=== PATIENT | female | born 1965 | race American Indian/Alaskan Native ===

== ENCOUNTER 2018-01-31 09:05 | Day surgery (SDC) | payer OTHER ==
--- NOTE | 2018-01-31 09:59 | Anesthesia Consultation ---
Anesthesia Consult and Med Hx Date of service: 01/31/18 - Airway Anesthetic Teeth Evaluation: Good ROM Head & Neck: Adequate Mental/Hyoid Distance: Adequate Mallampati Class: Class III Intubation Access Assessment: Possibly Difficult - Pulmonary Exam CTA: Yes - Cardiac Exam Cardiac Exam: RRR - Pre-Operative Health Status ASA Pre-Surgery Classification: ASA2 Proposed Anesthetic Plan: MAC - Pulmonary Hx Asthma: No COPD: Yes (Hx Bronchitis ) Hx Pneumonia: No - Central Nervous System Hx Psychiatric Problems: No - Endocrine Hx End Stage Renal Disease: No Hx Thyroid Disease: Yes (Thyroid nodule removed 1990s) - Hematic Hx Anemia: Yes - Other Systems Hx Alcohol Use: No Hx Substance Use: No Hx Cancer: Yes Hx Obesity: Yes
--- NOTE | 2018-01-31 09:59 | Anesthesia Day of Surgery ---
Anesthesia Day of Surgery - Day of Surgery Patient Examined: Yes Patient H&P Reviewed: Yes Patient is NPO: Yes
[2018-01-31] MEDS ORDERED: NACL 0.9% 1000 ML 1,000 ML IV SCH ×2 (10:00)
[2018-01-31] MEDS ORDERED: PEPCID IV NR (10:00)
[2018-01-31] MEDS ORDERED: ANCEF/STERILE WATER 2 GM/20 ML IV NR (10:00)
[2018-01-31] MEDS ORDERED: VERSED IV NR (10:00)
[2018-01-31 10:01] LABS: HCG Qualitative,Urine Negative (Negative)
[2018-01-31] MEDS ORDERED: HEPARIN 10,000 UNITS/10 ML ONE (10:38)
[2018-01-31] MEDS ORDERED: MARCAINE 0.5% 30 ML INFILTRATI ONE (10:38)
[2018-01-31] MEDS ORDERED: XYLOCAINE 1% 20 mL ONE (10:39)
[2018-01-31] MEDS ORDERED: GELFOAM TP ONE (10:40)
[2018-01-31] MEDS ORDERED: NACL 0.9% 250ML 250 ML ONE (10:40)
[2018-01-31] MEDS ORDERED: NACL ONE (10:50)
[2018-01-31] MEDS ORDERED: DIPRIVAN 10 MG/ML IV ONE ×3 (10:51→12:26)
[2018-01-31] MEDS ORDERED: XYLOCAINE MPF 2% ONE (10:53)
[2018-01-31] MEDS ORDERED: SUBLIMAZE ONE (11:14)
[2018-01-31] MEDS ORDERED: NEO SYNEPHRINE/NS Syringe(OR USE) IV ONE (11:29)
[2018-01-31] MEDS ORDERED: NACL 0.9% IR ONE (12:04)
[2018-01-31] MEDS ORDERED: HEPARIN IV ONE (12:04)
[2018-01-31] MEDS ORDERED: MARCAINE 0.5% INFILTRATI ONE (12:05)
[2018-01-31] MEDS ORDERED: XYLOCAINE 1% 20 mL INFILTRATI ONE (12:05)
[2018-01-31] MEDS ORDERED: NACL 0.9% 250ML IV ONE (12:05)
[2018-01-31] MEDS ORDERED: ZOFRAN ONE (12:31)
[2018-01-31] MEDS ORDERED: DECADRON ONE (12:31)
--- NOTE | 2018-01-31 13:12 | Short Stay Summary ---
Short Stay Documentation Date of service: 01/31/18 Narrative H&P: 52yo F with recent diagnosis of colon cancer presents for outpt port placement. - History H&P: obtained from office Past Medical History: cancer Past Surgical History: bowel surgery - Allergies and Medications Current Medications: Allergies No Known Allergies Allergy (Verified 01/29/18 10:48) Home Medications Medication Instructions Recorded Confirmed Last Taken Type No Known Home Medications [No 01/29/18 01/29/18 Unknown History Reported Home Medications] Active Medications Cefazolin Sodium (Ancef/Sterile Water 2 Gm/20 Ml) 2 gm IV PREOP NR Stop: 01/31/18 23:59 Famotidine (Pepcid) 20 mg IV PREOP NR Stop: 01/31/18 23:59 Last Admin: 01/31/18 10:20 Dose: 20 mg Sodium Chloride (Nacl 0.9% 1000 Ml) 1,000 mls @ 100 mls/hr IV DIRECT YANY Last Admin: 01/31/18 10:18 Dose: 100 mls/hr Sodium Chloride (Nacl 0.9% 1000 Ml) 1,000 mls @ 100 mls/hr IV DIRECT YANY Midazolam HCl (Versed) 2 mg IV PREOP NR Stop: 01/31/18 23:59 Last Admin: 01/31/18 10:19 Dose: 2 mg - Physical exam General appearance: no acute distress Lungs: Clear to auscultation, Normal air movement Heart: Regular rate Gastrointestinal: normal - Brief post op/procedure progress note Date of procedure: 01/31/18 Pre-op diagnosis: colon cancer Post-op diagnosis: same Procedure: Port placement with ultrasound guidance Anesthesia: MAC Findings: abnormal vascular anatomy on left side. Surgeon: MANINDER HERNANDEZ Estimated blood loss: minimal Pathology: none Condition: stable - Hospital course Hospital course: discharged home from PACU - Disposition Condition at discharge: Stable Disposition: DC-01 TO HOME OR SELFCARE - Discharge Diagnoses (1) Colon cancer Status: Suspected Qualifiers: Colon location: transverse Qualified Code(s): C18.4 - Malignant neoplasm of transverse colon Short Stay Discharge Plan Activity: advance as tolerated Weight Bearing Status: Weight Bear as Tolerated Diet: regular Wound: keep clean and dry Special Instructions: no heavy lifting (for 72 hours) Follow up with: KATERINE NOLASCO MD [Primary Care Provider] - 7 Days MANINDER HERNANDEZ MD [Staff Physician] - 7 Days (as needed) Prescriptions: HYDROcodone/APAP 5-325 [[place] 5/325] 1 each PO Q6HR PRN #10 tablet PRN Reason: Pain
--- NOTE | 2018-01-31 13:56 | Fluoroscopy Report ---
AP CHEST: HISTORY: Transverse colon cancer A right Wzivge-i-Wabh terminates near the cavoatrial junction. AP view of the chest demonstrates a normal mediastinal and cardiac contour with clear lungs and normal bony and soft tissue structures. IMPRESSION: Unremarkable AP chest.
[2018-01-31 15:13] VITALS: BP 115/77
--- NOTE | 2018-01-31 17:33 | Operative Report ---
PREOPERATIVE DIAGNOSIS: Transverse colon cancer. POSTOPERATIVE DIAGNOSIS: Transverse colon cancer. PROCEDURE: Port-A-Cath placement with ultrasound guidance in the right internal jugular vein. ATTENDING SURGEON: Dr. De Leon. ANESTHESIA: Local MAC. ESTIMATED BLOOD LOSS: Minimal. FLUIDS: 1 liter. FINDINGS: The patient had an unusual vascular anatomy and that confirmed access into the left internal jugular vein and then passage of the wire showed the wire going down left of the vertebral column, which would suggest aortic placement; however, on 2 separate occasions, we confirmed that the wire was going into the jugular vein based on ultrasound appearance. It had all the criteria consistent with that. The patient's right-sided anatomy was normal. Chest x-ray at the end showed good placement of the catheter. Distal tip was at the cavoatrial junction. There was no evidence of any pneumothorax. SPECIMENS: None. IMPLANTS: 8-Kazakh Port-A-Cath. COMPLICATIONS: Stable, transferred to Recovery Room. INDICATIONS: This is a 52-year-old female who was recently found to have a transverse colon cancer for which she went an extended right hemicolectomy. Oncology has assessed that she is in need of chemotherapy. Therefore, request was made for Port-A-Cath placement. Procedure, risks, and benefits were explained to the patient. Risks include but not limited to infection, bleeding, pain, injury to surrounding structures, possible pneumothorax, possible catheter malfunction, possible need for further surgery in the future. The patient understood and consented. Benefits, risks, procedures, alternatives were all explained. All questions were answered. DESCRIPTION OF PROCEDURE: The patient was brought to the operating room and placed on the table in supine position. After adequate general anesthesia was established, the patient was prepped and draped in usual sterile fashion. Two grams of Ancef had been administered prior to start of the case. SCDs were in place. Timeout was performed. I began by doing ultrasound assessment of her subclavian area. I had difficulty identifying the subclavian vein and artery. Therefore, I decided not to try and access that area as I could not see it clearly and I went to the left internal jugular vein. The vascular anatomy on the left side of the neck was completely normal. The vein was significantly larger than the artery. The artery could be seen pulsating. The vein was easily compressed and I followed the vein all the way down to the base of the neck. There was no evidence of any clots or any obstruction. 1% lidocaine was used to anesthetize the planned injection site and then under direct visual guidance, I placed an introducer needle on the left side of the neck. I was able to watch the needle go the entire path under ultrasound guidance and enter the left internal jugular vein. The blood was not pulsatile. The blood was not bright red. It seemed consistent with venous flow which is what we are seeing on the screen. Passage of guidewire showed the guidewire to go down the left side of the chest in what would be the aortic region. This was seen on fluoroscopy, and therefore, I tried initially, trying to redirect the wire, but it kept going down the same way and so even though I had seen the left internal jugular vein on ultrasound, I decided to pull the wire out and reassess and then try again. My partner, Dr. Summers, was in the room and with the network control technician, we all looked at the ultrasound and we were all in agreement what was the internal jugular vein on the left side, and therefore, I accessed it again under direct vision. This time instead of coming along the length of the ultrasound, I had it perpendicular and so the needle would be lined up in the direction of the internal jugular vein as opposed to perpendicular. Again, I could see the tip clearly go into the internal jugular vein. The blood coming out was the same. It was nonpulsatile. It was not bright red. Guidewire was passed and it went into the exact same location. Even though we can clearly see on ultrasound what structure we were in, where the wire was, where the tip of the needle was, I felt that it was not safe to proceed as the anatomy just did not make sense. Therefore, I turned my attention to the right side, which was already prepped. Under ultrasound guidance, I was able to access the right internal jugular vein. We all confirmed that we are visualizing the vein. It compressed easily the entire length as we follow with ultrasound showed no evidence of any obstruction or clots and we could clearly see the artery pulsating just like we did on the left side. I accessed the vein and on first attempt, we passed the wire and went into the right ventricle. It was in the proper position. We therefore continued using 1% lidocaine and 0.5% Marcaine as anesthetic mix. I anesthetized the planned incision site for the pocket and I anesthetized the pocket itself. Incision was made that was approximately 3 cm in length. The pocket was bluntly dissected and the Port-A-Cath seemed to fit quite nicely. I then passed the catheter with a tunneler up towards the neck. Because of the sharp angulation at the base of the neck and the neck itself, I was unable to pass it in one motion. Therefore, I made an incision at the base of the neck to bring the trocar out and through that same incision, I then passed the trocar up to the neck and out the site where the wire was. Under fluoroscopy, we estimated the length of the catheter that we would need. Then I dilated the tract and placed the sheath. I had to do this separately as the skin was very thick and difficult to stretch out. Once this was done, we confirmed the location again with fluoroscopy and then passed the catheter. We adjusted the length so that was roughly at the atrial caval junction and then I turned our attention to the port itself. Port was inserted. Catheter was attached and secured with a silk stitch. We had already placed Prolene sutures in the port to anchor it and then we secured those to the underlying tissue. We were able to aspirate easily and flush it easily with the heparin flush and then we removed the sheath. We adjusted the length of the catheter and then we proceeded to close. I checked with fluoroscopy again. The catheter appeared to be in very good position. There was no evidence of any pneumothorax. Total catheter length was 33 cm. Using 4-0 Monocryl, I closed all the skin sites with subcuticular stitches. Skin was cleaned and dried. Dermabond was placed. The patient tolerated the procedure well. There were no complications. All counts were correct at the end of the case. A chest x-ray after the procedure showed no evidence of any pneumothorax and the catheter was in a good position without any sharp bends. In recovery, the patient was comfortable. No evidence of any expanding hematomas. No difficulty with breathing or with the voice. JOB# [id number] MIRIAM/KENDRICK
--- NOTE | 2018-01-31 17:37 | Post Anesthesia Evaluation ---
- Post Anesthesia Evaluation Patient Participated: Yes Airway Patent: Yes Stable Respiratory Function: Yes Nausea/Vomiting: No Temp > 96.8F: Yes Pain Manageable: Yes Adequeate Hydration: Yes Anesthesia Complications: No Block Receding Appropriately: Not Applicable
--- NOTE | 2018-02-03 11:06 | Event Note ---
Date: 02/03/18 I called the patient today to see how she was doing. She just finished her chemotherapy class. She reports that over the weekend she had lots of discomfort on the right side of the neck where the catheter was tunneled. She is feeling better today. There were no other issues or concerns. The icepack and pain medicines helped. She does not need anything else at this time. She will call if there are new issues or problems. She seemed to be in good spirits.
== END 2018-01-31 14:32 | disposition home or self-care (01) ==
LOC: OR 09:05
PROVIDERS: ATTEND Surgery
DX: C18.4 Malignant neoplasm of transverse colon (principal); J44.9 Chronic obstructive pulmonary disease, unspecified; E66.9 Obesity, unspecified; Z98.890 Other specified postprocedural states; Z68.34 Body mass index [BMI] 34.0-34.9, adult
CPT/HCPCS: 36561; 77001; 81025; C1769; C1788; J0690; J1100; J1644; J2250; J2370; J2405; J2704; J3010; J7030; J7050; A4649

== ENCOUNTER 2018-02-11 16:45 | Inpatient (IN) | payer OTHER ==
[2018-02-11] MEDS ORDERED: NACL 0.9% 1000 ML 1,000 ML IV ONE ×3 (16:52→21:10)
[2018-02-11] MEDS ORDERED: TYLENOL PO ONE (17:00)
[2018-02-11 17:25] LABS: Basophils % (Auto) 0.2 % (0.0-1.8); Eosinophils % (Auto) 0.1 % (0.0-4.3); Hematocrit 27.3 % (30.3-42.9); Hemoglobin 8.5 gm/dl (10.1-14.3); Lymphocytes # (Auto) 0.6 K/mm3 (1.2-5.4); Lymphocytes % (Auto) 5.7 % (13.4-35.0); Mean Corpuscular HGB Conc 31 % (30-34); Mean Corpuscular Volume 73 fl (79-97); Monocytes # (Auto) 0.6 K/mm3 (0.0-0.8); Monocytes % (Auto) 5.1 % (0.0-7.3); Platelet Count 261 K/mm3 (140-440); Red Blood Count 3.75 M/mm3 (3.65-5.03); Red Cell Distribution Width 18.8 % (13.2-15.2)
[2018-02-11 17:29] LABS: Mean Corpuscular Hemoglobin 23 pg (28-32)
[2018-02-11 17:42] LABS: BUN/Creatinine Ratio 12; Blood Urea Nitrogen 6 mg/dL (7-17); Calcium 8.3 mg/dL (8.4-10.2); Hemolysis Index 0
--- NOTE | 2018-02-11 19:18 | Cat Scan Report ---
FINAL REPORT PROCEDURE: CT NECK W CON TECHNIQUE: Computerized axial tomography of the soft tissue neck was performed following the IV injection of iodinated nonionic contrast. DLP 417.25 mGy-cm. HISTORY: Swelling of port insertion. Fever. COMPARISON: No prior studies are available for comparison. FINDINGS: Skull and scalp: Normal. Paranasal sinuses: Normal. Nasopharynx: Normal . Oral cavity: Normal . Epiglottis/vallecula: Normal . Larynx/pyriform sinuses: Normal . Thyroid gland: Normal . Lymph nodes: There are mildly enlarged lymph nodes throughout the neck, slightly more evident on the right. Salivary glands: Normal . Upper thorax: Normal . Vessels: Right IJ port, undulating course. Tip terminates at the right IJ/subclavian vein confluence. At the level of the hyoid bone there is loss of enhancement of the right internal jugular vein. There are also moderate surrounding paravertebral collaterals. Right subclavian vein is not clearly enhancing or seen. Left innominate and the SVC appear to be normally enhancing. Other: Slight thickening and indistinctness about the right sternocleidomastoid muscle, which has a portion of the catheter running through it. In the supraclavicular region of the sternocleidomastoid muscle cannot exclude subtle areas of low attenuation measuring up to 5 mm (image 62 series 2). Slightly asymmetric thickening and induration of the soft/subcutaneous tissues on the right neck compared to the left. Multilevel degenerative changes of the spine. Straightening and reversal of cervical lordosis. IMPRESSION: Right IJ catheter has a somewhat undulating course. Compared to the left internal jugular vein, at the level of the hyoid bone there is loss of enhancement of the right internal jugular vein. Right subclavian vein not clearly seen. There is good enhancement of the SVC. There are moderate paravertebral collaterals. Findings concerning for possible right internal jugular vein and possibly subclavian vein thrombus. Recommend venous Doppler ultrasound if there is continued clinical concern. Slight thickening and indistinctness about the right sternocleidomastoid muscle with portion of the catheter running through. Slightly asymmetric thickening and induration of the soft/subcutaneous tissues of the right neck when compared to the left although could be related to procedure if catheter has been placed recently, also consider subtle infectious/inflammatory process such as subtle cellulitis. There may be subtle areas of low attenuation in the right sternocleidomastoid muscle, likely be volume averaging but consider subtle developing collection or even small abscess. Recommend attention on followup examination if there is continued clinical concern. Tip of the catheter at the right subclavian/IJ confluence, with undulating course of catheter recommend correlating clinically if catheter has pulled back. Adenopathy likely reactive. Cannot exclude metastatic involvement if there is history of underlying malignancy. Findings were discussed by telephone with Dr. Ceballos at 6 p.m. central standard time on 02/11/2018.
--- NOTE | 2018-02-11 19:20 | Emergency Department Report ---
ED Fever HPI - General Chief Complaint: Skin/Abscess/Foreign Body Stated Complaint: ABSCESS/FEVER/WEAKNESS Time Seen by Provider: 02/11/18 18:19 Source: patient Exam Limitations: no limitations - History of Present Illness Initial Comments: 52-year-old female with a past medical history of recently diagnosed colon cancer recently surgically resected since the hospital with complaints of fever and right neck swelling. Patient had a port placed in the right chest wall on January 31 in preparation for chemotherapy. On the patient began feeling feverish and fatigued with poor appetite. Patient initially had swelling to a whole neck after surgery and a reduced with persistent swelling to the right side of the neck patient complains of occasional cough. No complaints of nausea , abdominal pain, vomiting, dysuria, or diarrhea. Dr. De Leon surgeon in the ER to assess patient and advises workup to rule out abscess ED Review of Systems ROS: Stated complaint: ABSCESS/FEVER/WEAKNESS Other details as noted in HPI Comment: All other systems reviewed and negative ED Past Medical Hx - Past Medical History Hx Congestive Heart Failure: No Hx of Cancer: Yes (colon cancer) Hx Asthma: No Hx COPD: Yes (Hx Bronchitis ) Hx HIV: No Additional medical history: Fibroids, Thyroid nodule - Surgical History Additional Surgical History: Thyroid nodule removed. Colon mass resection - Social History Smoking Status: Never Smoker Substance Use Type: None - Medications Home Medications: Home Medications Medication Instructions Recorded Confirmed Last Taken Type HYDROcodone/APAP 5-325 [[place] 1 each PO Q6HR PRN #10 tablet 01/31/18 Unknown Rx 5/325] ED Physical Exam - General Limitations: No Limitations - Other Other exam information: General: No limitations, patient is alert in no acute distress Head exam: Atraumatic, normocephalic Eyes exam: Normal appearance, pupils equal reactive to light, extraocular movements intact ENT: Moist mucous membrane Neck exam: Normal inspection, full range of motion, swelling to right lateral knee with possible palpation of catheter. Respiratory exam: Clear to auscultation bilateral, no wheezes, rales, crackles. Right chest wall port Cardiovascular: Normal rate and rhythm Abdomen: Soft, nondistended, and nontender, with normal bowel sounds, no rebound, or guarding Extremity: Full range of motion normal inspection no deformity Back: Normal Inspection, full range of motion, no tenderness Neurologic: Alert, oriented x3, cranial nerves intact, no motor or sensory deficit Psychiatric: normal affect, normal mood Skin: Warm, dry, intact ED Course Vital Signs 02/11/18 02/11/18 02/11/18 16:45 17:22 17:30 Temperature 102.9 F H Pulse Rate 136 H Respiratory 16 Rate Blood Pressure 134/82 Blood Pressure [Right] O2 Sat by Pulse 98 100 99 Oximetry 02/11/18 02/11/18 02/11/18 17:44 17:46 17:56 Temperature 102.9 F H Pulse Rate 129 H 131 H Respiratory 21 19 20 Rate Blood Pressure 112/75 Blood Pressure 112/75 [Right] O2 Sat by Pulse 100 100 Oximetry 02/11/18 02/11/18 02/11/18 18:00 18:22 18:30 Temperature Pulse Rate 125 H 117 H Respiratory 19 Rate Blood Pressure 112/75 Blood Pressure [Right] O2 Sat by Pulse 99 99 100 Oximetry 02/11/18 02/11/18 02/11/18 18:46 18:56 19:00 Temperature Pulse Rate 111 H 112 H Respiratory 14 18 12 Rate Blood Pressure Blood Pressure [Right] O2 Sat by Pulse 100 100 Oximetry 02/11/18 02/11/18 02/11/18 19:18 19:38 19:46 Temperature Pulse Rate 100 H Respiratory 17 19 16 Rate Blood Pressure 116/75 116/75 Blood Pressure [Right] O2 Sat by Pulse 98 99 99 Oximetry 02/11/18 02/11/18 02/11/18 20:00 20:16 20:30 Temperature Pulse Rate 94 H 96 H 95 H Respiratory 16 23 21 Rate Blood Pressure 120/67 116/75 116/75 Blood Pressure [Right] O2 Sat by Pulse 100 97 97 Oximetry - Reevaluation(s) Reevaluation #1: 02/11/18 22:17 Heart rate improves with Tylenol and IV fluids. Zosyn given empirically ED Medical Decision Making - Lab Data Result diagrams: 02/11/18 17:02 02/11/18 17:02 Lab Results 02/11/18 02/11/18 02/11/18 Range/Units 17:02 17:02 17:17 WBC 11.1 H (4.5-11.0) K/mm3 RBC 3.75 (3.65-5.03) M/mm3 Hgb 8.5 L (10.1-14.3) gm/dl Hct 27.3 L (30.3-42.9) % MCV 73 L (79-97) fl MCH 23 L (28-32) pg MCHC 31 (30-34) % RDW 18.8 H (13.2-15.2) % Plt Count 261 (140-440) K/mm3 Lymph % (Auto) 5.7 L (13.4-35.0) % [place] % (Auto) 5.1 (0.0-7.3) % Eos % (Auto) 0.1 (0.0-4.3) % Baso % (Auto) 0.2 (0.0-1.8) % Lymph # 0.6 L (1.2-5.4) K/mm3 [place] # 0.6 (0.0-0.8) K/mm3 Eos # 0.0 (0.0-0.4) K/mm3 Baso # 0.0 (0.0-0.1) K/mm3 Seg Neutrophils % 88.9 H (40.0-70.0) % Seg Neutrophils # 9.9 H (1.8-7.7) K/mm3 Sodium 134 L (137-145) mmol/L Potassium 3.4 L (3.6-5.0) mmol/L Chloride 96.0 L (98-107) mmol/L Carbon Dioxide 22 (22-30) mmol/L Anion Gap 19 mmol/L BUN 6 L (7-17) mg/dL Creatinine 0.5 L (0.7-1.2) mg/dL Estimated GFR > 60 ml/min BUN/Creatinine Ratio 12 % Glucose 106 H (65-100) mg/dL Lactic Acid 1.10 (0.7-2.0) mmol/L Calcium 8.3 L (8.4-10.2) mg/dL - Radiology Data Radiology results: report reviewed CXR pa and Lat FINDINGS: Right chest port catheter is present with tip in the region of the cephalad SVC. There is mild kinking/angulation in the region of the jugular insertion. No mediastinal shift. Cardiac silhouette is not enlarged. No pneumothorax, effusion, or focal pulmonary opacity. No acute skeletal finding. IMPRESSION: No focal pulmonary opacity. Mild caking/angulation in the region of the chest port catheter jugular insertion. Ct neck IV contrast: IMPRESSION: Right IJ catheter has a somewhat undulating course. Compared to the left internal jugular vein, at the level of the hyoid bone there is loss of enhancement of the right internal jugular vein. Right subclavian vein not clearly seen. There is good enhancement of the SVC. There are moderate paravertebral collaterals. Findings concerning for possible right internal jugular vein and possibly subclavian vein thrombus. Recommend venous Doppler ultrasound if there is continued clinical concern. Slight thickening and indistinctness about the right sternocleidomastoid muscle with portion of the catheter running through. Slightly asymmetric thickening and induration of the soft/subcutaneous tissues of the right neck when compared to the left although could be related to procedure if catheter has been placed recently, also consider subtle infectious/inflammatory process such as subtle cellulitis. There may be subtle areas of low attenuation in the right sternocleidomastoid muscle, likely be volume averaging but consider subtle developing collection or even small abscess. Recommend attention on followup examination if there is continued clinical concern. Tip of the catheter at the right subclavian/IJ confluence, with undulating course of catheter recommend correlating clinically if catheter has pulled back. Adenopathy likely reactive. Cannot exclude metastatic involvement if there is history of underlying malignancy. Findings were discussed by telephone with Dr. Ceballos at 6 p.m. central standard time on 02/11/2018. - Medical Decision Making Imaging shows that patient might have right-sided findings secondary to recent procedure versus early cellulitis. There is also question of a right IJ clot. Dr. De Leon recommends Doppler the right IJ with available. I ordered Zosyn to apparently treat for infection. Possibly some point for admission. Vitals improving with IV fluids and Tylenol. Po KCL given for mild hypokalemia - Differential Diagnosis conjunctivitis, abscess, misplaced catheter Critical Care Time: No Critical care attestation.: If time is entered above; I have spent that time in minutes in the direct care of this critically ill patient, excluding procedure time. ED Disposition Clinical Impression: Fever, Localized swelling, mass and lump, neck, Complication of catheter, Anemia, Colon cancer, Hypokalemia Disposition: OP ADMIT IP TO THIS HOSP Is pt being admited?: Yes Condition: Stable Time of Disposition: 22:05 (Dr Melo/hosp)
[2018-02-11] MEDS ORDERED: K-DUR PO ONE (20:10)
--- NOTE | 2018-02-11 21:59 | XRay Report ---
FINAL REPORT EXAM: XR CHEST ROUTINE 2V HISTORY: fever TECHNIQUE: PA and lateral chest radiographs PRIORS: 12/24/2017 FINDINGS: Right chest port catheter is present with tip in the region of the cephalad SVC. There is mild kinking/angulation in the region of the jugular insertion. No mediastinal shift. Cardiac silhouette is not enlarged. No pneumothorax, effusion, or focal pulmonary opacity. No acute skeletal finding. IMPRESSION: No focal pulmonary opacity. Mild caking/angulation in the region of the chest port catheter jugular insertion.
[2018-02-11] MEDS ORDERED: ZOSYN/NS 4.5GM/100ML 4.5 GM/100 ML VIAL IV ONE (22:00)
[2018-02-11] MEDS ORDERED: ZOFRAN IV PRN (22:41)
[2018-02-12] MEDS: TYLENOL PO PRN ×3 (02:10→15:02)
[2018-02-12] MEDS ORDERED: ZOSYN/NS 3.375GM/50ML 3.375 GM/50 ML BAG IV SCH (06:00)
--- NOTE | 2018-02-12 07:41 | History and Physical Report ---
CHIEF COMPLAINT: Swelling on the right side of the neck. HISTORY OF PRESENT ILLNESS: The patient is a 52-year-old female with recently diagnosed colonic cancer who had complained of fever and swelling on the right side of the neck. The patient had a port placed in the right chest wall recently on 01/31 in preparation for chemotherapy. A few days later, she started feeling feverish with fatigue and then developed swelling on the right side of the neck. She has history of occasional cough with no nausea, no vomiting, and no chest pain. The patient's surgeon is Dr. De Leon who put in the port, came to the Emergency Room and saw the patient and advised that the patient be worked of for possible abscess on the right side of neck and there is recommendation to do an ultrasound of the right side of the neck to rule out blood clot in the veins on the right side of the neck. There is no history of chest pain or shortness of breath. PAST MEDICAL HISTORY: Pertinent for colon cancer, COPD, fibroid and thyroid nodule. PAST SURGICAL HISTORY: Pertinent for colon resection, thyroid nodule removal and port placement on the right side of the chest. FAMILY HISTORY: Noncontributory. SOCIAL HISTORY: The patient does not smoke, does not drink alcohol and does not use illicit drugs. MEDICATIONS: The patient is on [place] 5/325 mg 1 by mouth every 6 hours as needed for pain. ALLERGIES: There are no known drug allergies. REVIEW OF SYSTEMS: CONSTITUTIONAL: There is fever, but no chills, no diaphoresis. HEENT: There is no headache or sore throat. CARDIOVASCULAR: There is no chest pain or orthopnea. RESPIRATORY: There is no shortness of breath or cough. GASTROINTESTINAL: There is no nausea, no vomiting. There is no abdominal pain, diarrhea or constipation. NEUROLOGICAL: There is no numbness, no dizziness, no altered mental status. MUSCULOSKELETAL: There is swelling on the right side of the neck, but no joint swelling. DERMATOLOGICAL: There is no skin rash, but there is swelling on the right side of neck, but there is no itching. GENITOURINARY: There is no dysuria, hematuria or flank pain. Rest of system review is normal. PHYSICAL EXAMINATION: GENERAL: At the time of exam, the patient was found to be alert, oriented x 3, not in acute distress. VITAL SIGNS: Shows temperature of 99.2 degree Fahrenheit, pulse of 103, respirations 19, blood pressure 143/80, O2 sat of 100% on room air. HEENT: Shows pupils to be equal, round, reactive to light and accommodating. Extraocular muscles intact. NECK: Supple with no JVD or carotid bruit. There is swelling on the right side of the neck, soft to touch. Nontender. There are no palpable lymph nodes. CARDIOVASCULAR: Showed normal first and second heart sounds, with no gallops or murmur. RESPIRATORY: Show good air entry on both sides of the lungs with no abnormal breath sounds. GASTROINTESTINAL: Shows abdomen to be full, soft, nontender with no organomegaly or rigidity. NEUROLOGIC: Shows no focal deficits. MUSCULOSKELETAL: Show no joint swelling or tenderness. DERMATOLOGICAL: Shows swelling on the right side of the neck, nontender to touch, with no redness seen in the area. GENITOURINARY: There is no costovertebral angle tenderness. PERTINENT LABORATORY AND IMAGING STUDIES: The patient has CBC done that shows elevated white count of 11,100 with a low hemoglobin of 8.5, low hematocrit of 27.3 and low MCV of 73. CBC differential shows elevated segmented neutrophil of 88.9%. Chemistry showing low sodium of 134, low potassium of 3.4, l3/28/2018ow chloride of 96. Lactic acid level was normal. IMAGING STUDIES: CT of the neck area shows right IJ catheter has somewhat undulating course according to the radiologist compared to the left internal jugular vein ____ loss of enhancement of the right internal jugular vein. The right subclavian vein was not clearly seen. The radiologist went further to say that there is moderate paravertebral collateral and that findings are concerning for possible right internal jugular vein, possible subclavian vein thrombus and they recommended venous Doppler ultrasound. Also, the radiologist says that there is slight thickening and indistinctiveness about the right sternocleidomastoid muscle with portions of the catheter running through. DIAGNOSES: 1. Right neck mass. 2. Fever. PLAN: The patient will be admitted to medical floor and will have an ultrasound of right internal jugular vein done as already ordered by the Emergency Room physician. The patient will be on IV Zosyn 3.375 g every 8 hours and will be on Tylenol 650 mg by mouth every 4 hours for fever and headache. The patient will be on IV Zofran 4 mg every 8 hours as needed for nausea and vomiting. The patient will continue surgical consult with Dr. De Leon, ordered by the Emergency Room physician. The patient's home medication will be reconciled and started accordingly. JOB# [id number] OCN/NTS
[2018-02-12 09:28] LABS: Bilirubin,Urine NEG (Negative); Blood,Urine SM (Negative); Color,Urine Yellow (Yellow); Mucus,Urine FEW /HPF; Urobilinogen,Urine < 2.0 mg/dL (<2.0)
[2018-02-12] MEDS ORDERED: VANCOMYCIN/NS 1 GM/250 ML 1 GM/250 ML BAG IV SCH (10:00)
[2018-02-12] MEDS ORDERED: VANCOMYCIN PHARMACY TO DOSE IV SCH (10:00)
--- NOTE | 2018-02-12 10:00 | Hem/Onc Progress Note ---
Assessment and Plan Discussed with Dr. sanchez. Continue to monitor. Awaiting ultrasound of the right neck area. Blood culture positive for gram-positive cocci in clusters. Awaiting ID and sensitivity. Patient on Zosyn and vancomycin currently. We will follow Subjective Date of service: 02/12/18 Interval history: Patient known to me. Recent diagnosis of stage II colon cancer. Patient is to start adjuvant chemotherapy next week. Recent PET scan shows no evidence of metastatic disease. Patient admitted with high fevers. Denies any bowel complaints. Objective - Constitutional Vitals: Last Vital Signs Temp 102.9 F H 02/12/18 07:53 Pulse 124 H 02/12/18 07:53 Resp 18 02/12/18 07:53 BP 164/92 02/12/18 07:53 Pulse Ox 95 02/12/18 07:53 General appearance: mild distress Performance status: 2- selfcare, ambulatory - Neck Neck: supple, other (right neck swelling) - Respiratory Respiratory effort: Positive: normal - Cardiovascular Rhythm: regular - Gastrointestinal General gastrointestinal: Present: soft - Labs Lab Results: Laboratory Results - last 24 hr 02/11/18 02/11/18 02/11/18 17:02 17:02 17:17 WBC 11.1 H RBC 3.75 Hgb 8.5 L Hct 27.3 L MCV 73 L MCH 23 L MCHC 31 RDW 18.8 H Plt Count 261 Lymph % (Auto) 5.7 L [place] % (Auto) 5.1 Eos % (Auto) 0.1 Baso % (Auto) 0.2 Lymph # 0.6 L [place] # 0.6 Eos # 0.0 Baso # 0.0 Seg Neutrophils % 88.9 H Seg Neutrophils # 9.9 H Sodium 134 L Potassium 3.4 L Chloride 96.0 L Carbon Dioxide 22 Anion Gap 19 BUN 6 L Creatinine 0.5 L Estimated GFR > 60 BUN/Creatinine Ratio 12 Glucose 106 H Lactic Acid 1.10 Calcium 8.3 L Urine Color Urine Turbidity Urine pH Ur Specific [place] Urine Protein Urine Glucose (UA) Urine Ketones Urine Blood Urine Nitrite Urine Bilirubin Urine Urobilinogen Ur Leukocyte Esterase Urine WBC (Auto) Urine RBC (Auto) U Epithel Cells (Auto) Urine Mucus 02/12/18 09:01 WBC RBC Hgb Hct MCV MCH MCHC RDW Plt Count Lymph % (Auto) [place] % (Auto) Eos % (Auto) Baso % (Auto) Lymph # [place] # Eos # Baso # Seg Neutrophils % Seg Neutrophils # Sodium Potassium Chloride Carbon Dioxide Anion Gap BUN Creatinine Estimated GFR BUN/Creatinine Ratio Glucose Lactic Acid Calcium Urine Color Yellow Urine Turbidity Clear Urine pH 6.0 Ur Specific [place] 1.019 Urine Protein 30 mg/dl Urine Glucose (UA) Neg Urine Ketones Tr Urine Blood Sm Urine Nitrite Neg Urine Bilirubin Neg Urine Urobilinogen < 2.0 Ur Leukocyte Esterase Neg Urine WBC (Auto) 1.0 Urine RBC (Auto) 1.0 U Epithel Cells (Auto) 4.0 Urine Mucus Few
--- NOTE | 2018-02-12 10:54 | Consultation ---
History of Present Illness Consult date: 02/12/18 Reason for consult: other (fever) Requesting physician: MURALI FRANKLIN Chief complaint: Fever - History of present illness History of present illness: 52-year-old female who is well-known to our service after having an extended right yumiko colectomy for newly diagnosed colon cancer in December and a recent port placement on January 31 presented to the office yesterday due to concerns of right next swelling. She was found to have a fever and tachycardia. She was sent to the ER for further evaluation. CT of the neck was done which showed no evidence of any abscess. Catheter looked to be retracted slightly. Patient was admitted to the medicine service for further workup of her fever. Patient reports continued fevers. Feels as though she may be developing left ear pain as well. Past History Past Medical History: cancer (colon) Past Surgical History: thyroidectomy, bowel surgery (extended right hemicolectomy; port placement) Social history: denies: smoking, alcohol abuse, prescription drug abuse Family history: no significant family history Medications and Allergies Allergies Allergy/AdvReac Type Severity Reaction Status Date / Time No Known Allergies Allergy Verified 01/29/18 10:48 Home Medications Medication Instructions Recorded Confirmed Last Taken Type HYDROcodone/APAP 5-325 [[place] 1 each PO Q6HR PRN #10 tablet 01/31/18 Unknown Rx 5/325] Active Meds: Active Medications Acetaminophen (Tylenol) 650 mg PO Q4H PRN PRN Reason: For Pain/Fever/Headache Last Admin: 02/12/18 08:29 Dose: 650 mg Acetaminophen/Hydrocodone Bitart ([place] 5/325) 1 each PO Q6H PRN PRN Reason: Pain Vancomycin HCl 1,750 mg/ (Sodium Chloride) 517.5 mls @ 333.333 mls/hr IV ONCE ONE Stop: 02/12/18 12:33 Piperacillin Sod/Tazobactam Sod (Zosyn/Ns 4.5gm/100ml) 4.5 gm in 100 mls @ 200 mls/hr IV Q8HR YANY Vancomycin HCl 1,250 mg/ (Sodium Chloride) 262.5 mls @ 166.667 mls/hr IV Q12H YANY Ondansetron HCl (Zofran) 4 mg IV Q8H PRN PRN Reason: Nausea And Vomiting Vancomycin HCl (Vancomycin Pharmacy To Dose) 1 each IV PKCONSULT YANY Review of Systems - Constitutional fever, chills (mild), sweats, weakness, lethargy - EENT Ears, nose, mouth and throat: ear pain (left ), nasal congestion, nasal discharge, sinus pressure - Breasts deferred - Cardiovascular chest pain (occasional on the left side) - Respiratory no cough, no cough with sputum, no shortness of breath - Gastrointestinal no abdominal pain, no nausea, no vomiting - Genitourinary Genitourinary: no dysuria - Muskuloskeletal neck pain (in area of catheter placement) - Integumentary no rash - Neurological tingling (in right arm and leg) - Hematologic/Lymphatic no easy bruising, no easy bleeding Exam Vital Signs Temp Pulse Resp BP Pulse Ox 102.9 F H 136 H 16 134/82 98 02/11/18 16:45 02/11/18 16:45 02/11/18 16:45 02/11/18 16:45 02/11/18 16:45 - General physical appearance Positive: no distress, other (does appear ill) - Eyes Positive: normal occular movement - Neck Positive: trachea midline, other (mild neck prominence on right (catheter). incisions are C/D/I) - Respiratory Positive: normal expansion, normal respiratory effort - Cardiovascular Rhythm: regular - Abdomen Abdomen: Present: soft. Absent: tender, distended - Integumentary no rash, other (all incisions are clear,dry,intact) - Neurologic Neurologic: alert and oriented to time, place and person, motor strength and sensation are grossly intact - Psychiatric Psychiatric: appropriate mood/affect, intact judgment & insight, memory intact, cooperative Results - Labs 02/11/18 17:02 02/11/18 17:02 Abnormal lab results 02/11/18 02/11/18 Range/Units 17:02 17:02 WBC 11.1 H (4.5-11.0) K/mm3 Hgb 8.5 L (10.1-14.3) gm/dl Hct 27.3 L (30.3-42.9) % MCV 73 L (79-97) fl MCH 23 L (28-32) pg RDW 18.8 H (13.2-15.2) % Lymph % (Auto) 5.7 L (13.4-35.0) % Lymph # 0.6 L (1.2-5.4) K/mm3 Seg Neutrophils % 88.9 H (40.0-70.0) % Seg Neutrophils # 9.9 H (1.8-7.7) K/mm3 Sodium 134 L (137-145) mmol/L Potassium 3.4 L (3.6-5.0) mmol/L Chloride 96.0 L (98-107) mmol/L BUN 6 L (7-17) mg/dL Creatinine 0.5 L (0.7-1.2) mg/dL Glucose 106 H (65-100) mg/dL Calcium 8.3 L (8.4-10.2) mg/dL Diabetes panel 02/11/18 Range/Units 17:02 Sodium 134 L (137-145) mmol/L Potassium 3.4 L (3.6-5.0) mmol/L Chloride 96.0 L (98-107) mmol/L Carbon Dioxide 22 (22-30) mmol/L BUN 6 L (7-17) mg/dL Creatinine 0.5 L (0.7-1.2) mg/dL Glucose 106 H (65-100) mg/dL Calcium 8.3 L (8.4-10.2) mg/dL Calcium panel 02/11/18 Range/Units 17:02 Calcium 8.3 L (8.4-10.2) mg/dL Pituitary panel 02/11/18 Range/Units 17:02 Sodium 134 L (137-145) mmol/L Potassium 3.4 L (3.6-5.0) mmol/L Chloride 96.0 L (98-107) mmol/L Carbon Dioxide 22 (22-30) mmol/L BUN 6 L (7-17) mg/dL Creatinine 0.5 L (0.7-1.2) mg/dL Glucose 106 H (65-100) mg/dL Calcium 8.3 L (8.4-10.2) mg/dL Adrenal panel 02/11/18 Range/Units 17:02 Sodium 134 L (137-145) mmol/L Potassium 3.4 L (3.6-5.0) mmol/L Chloride 96.0 L (98-107) mmol/L Carbon Dioxide 22 (22-30) mmol/L BUN 6 L (7-17) mg/dL Creatinine 0.5 L (0.7-1.2) mg/dL Glucose 106 H (65-100) mg/dL Calcium 8.3 L (8.4-10.2) mg/dL - Imaging Chest x-ray: report reviewed, image reviewed Additional studies: Reviewed Ct neck with radiologist Assessment and Plan - Patient Problems (1) Fever Current Visit: Yes Status: Acute Qualifiers: Fever type: unspecified Qualified Code(s): R50.9 - Fever, unspecified Plan to address problem: Unclear what the source is for the fever. If a DVT is found in the right internal jugular vein (ultrasound pending), that could be a possible source for the fever. The port itself has not been accessed yet. Highly unlikely this is a line infection. The surgical wounds are all without signs of infection. The CT scan of the neck did not show any sign to suggest abscess or cause of fever. Will follow along. Time=45min
[2018-02-12] MEDS ORDERED: VANCOMYCIN 1,750 MG in NACL 0.9% 500 ML 500 ML IV ONE (11:00)
[2018-02-12] MEDS ORDERED: HEPARIN 25,000 UNIT in D5W 497.5 ML IV SCH (12:00)
--- NOTE | 2018-02-12 13:59 | Consultation ---
History of Present Illness - Reason for Consult Consult date: 02/12/18 bacteremia Requesting physician: MURALI FRANKLIN - History of Present Illness 52 years old female with history of stage II colon cancer diagnosed last month s /p colectomy oin December, also underwent port-A-cath placement on 01/31; admitted on 02/11 due to 5 days history of severe right neck port site pain, swelling and fever. Patient is to start adjuvant chemotherapy next week. Recent PET scan shows no evidence of metastatic disease. Denies respiratory symptoms, urinary symptoms, N/V/D. She reports she is so purulence at the surgical site. In the ED, initial temperature was 102.9, heart rate 136, respirations 16, O2 sat 98, blood pressure 134/82. Initial white count 11.1. Hemoglobin 8.5. Platelets 261. Creatinine 0.5. Potassium 3.4. Sodium 134. Urinalysis is negative. CT of the neck showed a right IJ with an undulating course catheter. There is a possibility of a right IJ and Subclavian vein thrombosis. Ultrasound of the neck show acute DVT in the right IJ. Microbiology: Blood cultures: 02/11 GPC in clusters 2 of 4 bottles Urine cultures: Current Antimicrobials: Zosyn 02/12 Vancomycin 02/12 Previous Antimicrobials: Past History Past Medical History: cancer (colon) Past Surgical History: thyroidectomy, bowel surgery (extended right hemicolectomy; port placement) Social history: denies: smoking, alcohol abuse, prescription drug abuse Family history: no significant family history Medications and Allergies Allergies Allergy/AdvReac Type Severity Reaction Status Date / Time No Known Allergies Allergy Verified 01/29/18 10:48 Home Medications Medication Instructions Recorded Confirmed Last Taken Type HYDROcodone/APAP 5-325 [[place] 1 each PO Q6HR PRN #10 tablet 01/31/18 Unknown Rx 5/325] Active Meds: Active Medications Acetaminophen (Tylenol) 650 mg PO Q4H PRN PRN Reason: For Pain/Fever/Headache Last Admin: 02/12/18 08:29 Dose: 650 mg Acetaminophen/Hydrocodone Bitart ([place] 5/325) 1 each PO Q6H PRN PRN Reason: Pain Heparin Sodium (Porcine) (Heparin 10,000 Units/10 Ml) 3,500 unit 40 unit/kg ( 3500 unit) IV ONCE ONE Stop: 02/12/18 13:55 Piperacillin Sod/Tazobactam Sod (Zosyn/Ns 4.5gm/100ml) 4.5 gm in 100 mls @ 200 mls/hr IV Q8HR YANY Vancomycin HCl 1,250 mg/ (Sodium Chloride) 262.5 mls @ 166.667 mls/hr IV Q12H YANY Heparin Sodium (Porcine) 25, (000 unit/ Dextrose) 500 mls @ 26.19 mls/hr IV TITR YANY; Protocol Heparin Sodium/Sodium Chloride (Heparin/ 0.45% Nacl-25,000 Unit/500 Ml) 25,000 unit in 500 mls @ 26.19 mls/hr IV TITR YANY; Protocol Ondansetron HCl (Zofran) 4 mg IV Q8H PRN PRN Reason: Nausea And Vomiting Vancomycin HCl (Vancomycin Pharmacy To Dose) 1 each IV PKCONSULT YANY Review of Systems All systems: negative (as per HPI address of 10 point review systems negative) Physical Examination - Physical Exam Narrative exam: General appearance: Alert in NAD, conversant Eyes: anicteric sclerae, moist conjunctivae; no lid-lag; PERRLA HENT: Atraumatic; oropharynx clear. Neck: +marked tendeness and swellin right neck and SC area Lungs: CTA, with normal respiratory effort and no intercostal retractions CV: tachy Abdomen: Soft, non-tender; +midline surg scar well healed Extremities: No peripheral edema or extremity lymphadenopathy Skin: Normal temperature, turgor and texture; no rash, ulcers or subcutaneous nodules Psych: Appropriate affect, alert and oriented to person, place and time. Neuro: alert and oriented x 3. Moving all extermities Lines: - Constitutional Vitals: Vital Signs Temp Pulse Resp BP Pulse Ox 102.9 F H 124 H 18 164/92 95 02/12/18 07:53 02/12/18 07:53 02/12/18 07:53 02/12/18 07:53 02/12/18 07:53 Temperature -Last 24 Hours Temperature 102.9 F Temperature 99.2 F Temperature 102.9 F Temperature 102.9 F Results - Labs CBC & Chem 7: 02/11/18 17:02 02/11/18 17:02 Labs: Abnormal lab results 02/11/18 02/11/18 Range/Units 17:02 17:02 WBC 11.1 H (4.5-11.0) K/mm3 Hgb 8.5 L (10.1-14.3) gm/dl Hct 27.3 L (30.3-42.9) % MCV 73 L (79-97) fl MCH 23 L (28-32) pg RDW 18.8 H (13.2-15.2) % Lymph % (Auto) 5.7 L (13.4-35.0) % Lymph # 0.6 L (1.2-5.4) K/mm3 Seg Neutrophils % 88.9 H (40.0-70.0) % Seg Neutrophils # 9.9 H (1.8-7.7) K/mm3 Sodium 134 L (137-145) mmol/L Potassium 3.4 L (3.6-5.0) mmol/L Chloride 96.0 L (98-107) mmol/L BUN 6 L (7-17) mg/dL Creatinine 0.5 L (0.7-1.2) mg/dL Glucose 106 H (65-100) mg/dL Calcium 8.3 L (8.4-10.2) mg/dL Assessment and Plan Assessment: 1) Sepsis: Present on admission, manifested by fever, tachycardia, leukocytosis. Etiology most likely bacteremia 2) GPC in clusters bacteremia: likely from infected port a cath with right IJ thrombus -Port placed on 01/31/18 -Blood cx 02/11 already positive 2 of 4 bottles 3) Presumed right IJ septic thrombophlebitis: -Doppler showed right IJ DVT -CT neck Right IJ cath undulating course, presumed right IJ and SC vein thrombus and right sternomastoid muscle with a small abscess 4) Colon cancer stage II s/p colectomy 5) Anemia Plan: -remove port-A-cath - discussed with Dr De Leon -armand arellano - no need for anti-pseudomonal coverage -continue vancomcyin -add cefazolin -f/u blood cx -repeat blood cx in 48h -obtain TTE / CRP -DVT treatment per medicine -if persistent fever or bacteremia will consult vascular Thank you for your consultation, will follow up with you. Michelle Fitch MD Infectious Diseases Specialist [facility] ([facility] M [phone] O [phone]
[2018-02-12] MEDS ORDERED: ZOSYN/NS 4.5GM/100ML 4.5 GM/100 ML VIAL IV SCH (14:00)
[2018-02-12] MEDS ORDERED: XYLOCAINE 1% MPF 5 mL INFILTRATI ONE (14:24)
[2018-02-12 14:29] LABS: Hemoglobin 8.1 gm/dl (10.1-14.3)
[2018-02-12] MEDS ORDERED: HEPARIN 10,000 UNITS/10 ML IV ONE (14:30)
[2018-02-12 14:38] LABS: INR 1.08 (0.87-1.13)
[2018-02-12 14:39] LABS: Partial Thromboplastin Time 36.4 Sec. (24.2-36.6)
[2018-02-12] MEDS ORDERED: ceFAZolin 2 GM in NACL 0.9% 100 ML IV SCH (15:00)
--- NOTE | 2018-02-12 16:13 | Procedure Note ---
Date of procedure: 02/12/18 Pre-op diagnosis: Sepsis Post-op diagnosis: same Procedure: Port removal. Patient was assessed to have sepsis most likely line related by infectious disease. I discussed the case with Dr. Neely. She felt strongly that the port needed to be removed. I discussed this plan with the patient. She was an agreement. Procedure, risks, benefits were discussed. Consent was obtained. Sterile prep and drape was performed. 1% lidocaine was used to anesthetize the port incision site. The incision site was open. There was clear fluid around the port. There was early fibrinous tissue forming around the port. This was easily dissected. Stay sutures were cut. Minimal dissection was needed in order to remove the port and catheter. As the catheter was being pulled out pressure was held over the insertion point at the right internal jugular vein. She was in Trendelenburg position during this time. Once the catheter was completely out, the patient was placed in the sitting position while pressure continued to be held. After a few minutes pressure was released. One was packed with gauze. There was no bleeding. Dressings were placed. Patient tolerated the procedure well. Catheter tip was still fairly cut and placed in specimen cup. It was sent to lab for evaluation. Anesthesia: local (4cc 1% lidocaine) Surgeon: MANINDER HERNANDEZ Estimated blood loss: minimal Pathology: list (catheter tip sent) Specimen disposition: to lab Condition: stable Disposition: floor
[2018-02-12] MEDS: HEPARIN/ 0.45% NACL-25,000 UNIT/500 ML 25,000 UNIT/500 ML BAG IV SCH (16:54)
--- NOTE | 2018-02-12 18:32 | Progress Note ---
Assessment and Plan Assessment and plan: Assessment Acute DVT Right IJ /Subclavian Acute Sepsis Syndrome with Bacteremia Anemia of chronic disease. Hypokalemia h/o Colon cancer Mild acute Hypokalemia Right neck swelling and pain Obese Full code status Plan Heparin drip per protocol bleeding precautions at all times am labs. replete K ID consult to Dr Neely close monitoring if condition deteriorates, transfer to ICU continue IV abx d/w pt and RN f.u final culture results Further pt mgt per hospital course Port removed f/u 2D Echo contact precautions inputs and reccs of the specialists appreciated. More than 40 mins spent of which more than 50% of the time was spent in pt counseling and coordination History Interval history: Ms Schaefer is a pleasant 52 y/o female with new diagnosis of Colon cancer, s/p surgery and Port-a-cath placement. Has had temps of 102.9 etc, ID Consult obtained, d/w Dr Neely. Pt seen and exam earlier today, feels better, worried about the fevers. Venous doppler neck positive for acute DVT D/W rn multiple times today. Denies CP/SOB, c/o left ear pain, No family at bedside during this encounter. Inputs and reecs of the specialists appreciated. Port-a-cath removed by the surgeon Hospitalist Physical - Constitutional Vitals: Temp Pulse Resp BP Pulse Ox 102.9 F H 124 H 18 164/92 95 02/12/18 07:53 02/12/18 07:53 02/12/18 07:53 02/12/18 07:53 02/12/18 07:53 General appearance: Present: no acute distress, well-nourished, obese - EENT Eyes: Present: PERRL, EOM intact ENT: hearing intact, clear oral mucosa, dentition normal - Neck Neck: Present: supple, normal ROM, other (swelling right side of neck) - Respiratory Respiratory effort: normal Respiratory: bilateral: CTA, negative: rales, rhonchi - Cardiovascular Rhythm: other (tachy) Heart Sounds: Present: S1 & S2 - Extremities Extremities: no ischemia, pulses intact, No edema, normal temperature Peripheral Pulses: within normal limits - Abdominal General gastrointestinal: soft, non-tender, non-distended, normal bowel sounds - Integumentary Integumentary: Present: clear, warm, dry - Psychiatric Psychiatric: appropriate mood/affect, intact judgment & insight, memory intact, cooperative - Neurologic Neurologic: CNII-XII intact, moves all extremities - Allied Health Allied health notes reviewed: nursing, social work Results - Labs CBC & Chem 7: 02/12/18 14:07 02/11/18 17:02 Labs: Laboratory Last Values WBC 11.1 K/mm3 (4.5-11.0) H 02/11/18 17:02 RBC 3.75 M/mm3 (3.65-5.03) 02/11/18 17:02 Hgb 8.1 gm/dl (10.1-14.3) L 02/12/18 14:07 Hct 27.0 % (30.3-42.9) L 02/12/18 14:07 MCV 73 fl (79-97) L 02/11/18 17:02 MCH 23 pg (28-32) L 02/11/18 17:02 MCHC 31 % (30-34) 02/11/18 17:02 RDW 18.8 % (13.2-15.2) H 02/11/18 17:02 Plt Count 253 K/mm3 (140-440) 02/12/18 14:07 Lymph % (Auto) 5.7 % (13.4-35.0) L 02/11/18 17:02 [place] % (Auto) 5.1 % (0.0-7.3) 02/11/18 17:02 Eos % (Auto) 0.1 % (0.0-4.3) 02/11/18 17:02 Baso % (Auto) 0.2 % (0.0-1.8) 02/11/18 17:02 Lymph # 0.6 K/mm3 (1.2-5.4) L 02/11/18 17:02 [place] # 0.6 K/mm3 (0.0-0.8) 02/11/18 17:02 Eos # 0.0 K/mm3 (0.0-0.4) 02/11/18 17:02 Baso # 0.0 K/mm3 (0.0-0.1) 02/11/18 17:02 Seg Neutrophils % 88.9 % (40.0-70.0) H 02/11/18 17:02 Seg Neutrophils # 9.9 K/mm3 (1.8-7.7) H 02/11/18 17:02 PT 14.6 Sec. (12.2-14.9) 02/12/18 14:07 INR 1.08 (0.87-1.13) 02/12/18 14:07 APTT 36.4 Sec. (24.2-36.6) 02/12/18 14:07 Sodium 134 mmol/L (137-145) L 02/11/18 17:02 Potassium 3.4 mmol/L (3.6-5.0) L 02/11/18 17:02 Chloride 96.0 mmol/L (98-107) L 02/11/18 17:02 Carbon Dioxide 22 mmol/L (22-30) 02/11/18 17:02 Anion Gap 19 mmol/L 02/11/18 17:02 BUN 6 mg/dL (7-17) L 02/11/18 17:02 Creatinine 0.5 mg/dL (0.7-1.2) L 02/11/18 17:02 Estimated GFR > 60 ml/min 02/11/18 17:02 BUN/Creatinine Ratio 12 % 02/11/18 17:02 Glucose 106 mg/dL (65-100) H 02/11/18 17:02 Lactic Acid 1.10 mmol/L (0.7-2.0) 02/11/18 17:17 Calcium 8.3 mg/dL (8.4-10.2) L 02/11/18 17:02 Urine Color Yellow (Yellow) 02/12/18 09:01 Urine Turbidity Clear (Clear) 02/12/18 09:01 Urine pH 6.0 (5.0-7.0) 02/12/18 09:01 Ur Specific [place] 1.019 (1.003-1.030) 02/12/18 09:01 Urine Protein 30 mg/dl mg/dL (Negative) 02/12/18 09:01 Urine Glucose (UA) Neg mg/dL (Negative) 02/12/18 09:01 Urine Ketones Tr mg/dL (Negative) 02/12/18 09:01 Urine Blood Sm (Negative) 02/12/18 09:01 Urine Nitrite Neg (Negative) 02/12/18 09:01 Urine Bilirubin Neg (Negative) 02/12/18 09:01 Urine Urobilinogen < 2.0 mg/dL (<2.0) 02/12/18 09:01 Ur Leukocyte Esterase Neg (Negative) 02/12/18 09:01 Urine WBC (Auto) 1.0 /HPF (0.0-6.0) 02/12/18 09:01 Urine RBC (Auto) 1.0 /HPF (0.0-6.0) 02/12/18 09:01 U Epithel Cells (Auto) 4.0 /HPF (0-13.0) 02/12/18 09:01 Urine Mucus Few /HPF 02/12/18 09:01 - Imaging and Cardiology Chest x-ray: report reviewed CT Scan - head: report reviewed
[2018-02-12] MEDS: ANCEF/STERILE WATER 2 GM/20 ML 2 GM/20 ML SYRINGE IV SCH ×2 (18:57→23:33)
[2018-02-12] MEDS ORDERED: K-DUR PO ONE ×2 (19:00→22:00)
[2018-02-13] MEDS: VANCOMYCIN 1,250 MG in NACL 0.9% 250ML 250 ML IV SCH ×2 (00:03→12:00)
[2018-02-13] MEDS: TYLENOL PO PRN ×3 (00:43→14:45)
[2018-02-13 01:52] LABS: Basophils % (Auto) 0.2 % (0.0-1.8); Eosinophils % (Auto) 0.2 % (0.0-4.3); Hemoglobin 7.3 gm/dl (10.1-14.3); Lymphocytes # (Auto) 1.3 K/mm3 (1.2-5.4); Lymphocytes % (Auto) 11.5 % (13.4-35.0); Mean Corpuscular HGB Conc 32 % (30-34); Mean Corpuscular Volume 72 fl (79-97); Monocytes # (Auto) 0.9 K/mm3 (0.0-0.8); Monocytes % (Auto) 8.5 % (0.0-7.3); Platelet Count 222 K/mm3 (140-440); Red Blood Count 3.18 M/mm3 (3.65-5.03); Red Cell Distribution Width 19.1 % (13.2-15.2)
[2018-02-13 02:00] LABS: BUN/Creatinine Ratio 6; Blood Urea Nitrogen 3 mg/dL (7-17); Calcium 7.4 mg/dL (8.4-10.2); Hemolysis Index 0
[2018-02-13 02:02] LABS: Mean Corpuscular Hemoglobin 23 pg (28-32)
[2018-02-13] MEDS: ANCEF/STERILE WATER 2 GM/20 ML 2 GM/20 ML SYRINGE IV SCH ×2 (06:47→14:48)
[2018-02-13] MEDS ORDERED: KCL 20MEQ/100ML 20 MEQ/100 ML BAG IV ONE (07:18)
--- NOTE | 2018-02-13 07:25 | Progress Note ---
Assessment and Plan Acute Sepsis Syndrome with Bacteremia Acute DVT Right IJ /Subclavian Anemia of chronic disease. Hypokalemia h/o Colon cancer Mild acute Hypokalemia Right neck swelling and pain Obese Full code status Plan Continue with Cefazolin and Vanc per ID consulted Heparin drip per protocol bleeding precautions at all times am labs. replete K further d/w pt and RN No blood cX report so far. Continue to follow Further pt mgt per hospital course Port removed 2D Echo pebnding contact precautions inputs and recs of the specialists appreciated. Subjective Date of service: 02/13/18 Principal diagnosis: Sepsis, anmeia of chronic disease Interval history: Pt seen and examined. No new complaint. Objective - Constitutional Vitals: Vital Signs - 12hr 02/12/18 02/13/18 02/13/18 22:00 00:42 04:43 Temperature 100.4 F H 98.1 F Pulse Rate 98 H Pulse Rate [ 90 Right Radial] Respiratory 18 20 Rate Blood Pressure 135/78 [Right] O2 Sat by Pulse 97 Oximetry General appearance: Present: no acute distress, well-nourished - EENT Eyes: PERRL, EOM intact - Neck Neck: supple, normal ROM - Respiratory Respiratory effort: normal Respiratory: bilateral: CTA - Cardiovascular Rhythm: regular Heart Sounds: Present: S1 & S2. Absent: gallop, rub Extremities: pulses intact, No edema, normal color, Full ROM - Gastrointestinal General gastrointestinal: Present: soft, non-tender, non-distended, normal bowel sounds - Integumentary Integumentary: clear, warm, dry - Musculoskeletal Musculoskeletal: 1, strength equal bilaterally - Neurologic Neurologic: moves all extremities - Psychiatric Psychiatric: memory intact, appropriate mood/affect, intact judgment & insight - Labs CBC & Chem 7: 02/13/18 00:42 02/13/18 00:42 Labs: Abnormal lab results 02/12/18 02/12/18 02/12/18 Range/Units 14:07 17:32 23:06 RBC (3.65-5.03) M/mm3 Hgb 8.1 L (10.1-14.3) gm/dl Hct 27.0 L (30.3-42.9) % MCV (79-97) fl MCH (28-32) pg RDW (13.2-15.2) % Lymph % (Auto) (13.4-35.0) % [place] % (Auto) (0.0-7.3) % [place] # (0.0-0.8) K/mm3 Seg Neutrophils % (40.0-70.0) % Seg Neutrophils # (1.8-7.7) K/mm3 Heparin Anti-Xa Level 0.27 L (0.3-0.7) U.I./ml Potassium (3.6-5.0) mmol/L Carbon Dioxide (22-30) mmol/L BUN (7-17) mg/dL Creatinine (0.7-1.2) mg/dL Calcium (8.4-10.2) mg/dL C-Reactive Protein 13.80 H (0.00-1.30) mg/dL 02/13/18 02/13/18 Range/Units 00:42 00:42 RBC 3.18 L (3.65-5.03) M/mm3 Hgb 7.3 L (10.1-14.3) gm/dl Hct 23.0 L (30.3-42.9) % MCV 72 L (79-97) fl MCH 23 L (28-32) pg RDW 19.1 H (13.2-15.2) % Lymph % (Auto) 11.5 L (13.4-35.0) % [place] % (Auto) 8.5 H (0.0-7.3) % [place] # 0.9 H (0.0-0.8) K/mm3 Seg Neutrophils % 79.6 H (40.0-70.0) % Seg Neutrophils # 8.7 H (1.8-7.7) K/mm3 Heparin Anti-Xa Level (0.3-0.7) U.I./ml Potassium 3.2 L (3.6-5.0) mmol/L Carbon Dioxide 20 L (22-30) mmol/L BUN 3 L (7-17) mg/dL Creatinine 0.5 L (0.7-1.2) mg/dL Calcium 7.4 L (8.4-10.2) mg/dL C-Reactive Protein (0.00-1.30) mg/dL
--- NOTE | 2018-02-13 10:17 | Progress Note ---
Assessment and Plan - Patient Problems (1) Fever Current Visit: Yes Status: Acute Qualifiers: Fever type: unspecified Qualified Code(s): R50.9 - Fever, unspecified Plan to address problem: Pt stable. Looks better. Catheter culture pending. HR better. Will order dressing changes. If wound remains clean, will close with steri-strips in 1-2 days. Please call with any questions. Subjective Date of service: 02/13/18 Patient Reports: Positive: feels better Objective Vital Signs - 12hr 02/13/18 02/13/18 02/13/18 00:42 04:43 07:28 Temperature 100.4 F H 98.1 F 98.3 F Pulse Rate 98 H 103 H Respiratory 20 20 Rate Blood Pressure 146/83 Blood Pressure 135/78 [Right] O2 Sat by Pulse 97 97 Oximetry - General physical appearance well developed, well nourished, no distress, no pain, other (looks better) - Respiratory normal expansion, normal respiratory effort - Integumentary other (chest wound is clean. Dressing changed. ) - Labs 02/13/18 00:42 02/13/18 00:42 Diabetes panel 02/13/18 Range/Units 00:42 Sodium 137 (137-145) mmol/L Potassium 3.2 L (3.6-5.0) mmol/L Chloride 100.8 (98-107) mmol/L Carbon Dioxide 20 L (22-30) mmol/L BUN 3 L (7-17) mg/dL Creatinine 0.5 L (0.7-1.2) mg/dL Glucose 97 (65-100) mg/dL Calcium 7.4 L (8.4-10.2) mg/dL Calcium panel 02/13/18 Range/Units 00:42 Calcium 7.4 L (8.4-10.2) mg/dL Pituitary panel 02/13/18 Range/Units 00:42 Sodium 137 (137-145) mmol/L Potassium 3.2 L (3.6-5.0) mmol/L Chloride 100.8 (98-107) mmol/L Carbon Dioxide 20 L (22-30) mmol/L BUN 3 L (7-17) mg/dL Creatinine 0.5 L (0.7-1.2) mg/dL Glucose 97 (65-100) mg/dL Calcium 7.4 L (8.4-10.2) mg/dL Adrenal panel 02/13/18 Range/Units 00:42 Sodium 137 (137-145) mmol/L Potassium 3.2 L (3.6-5.0) mmol/L Chloride 100.8 (98-107) mmol/L Carbon Dioxide 20 L (22-30) mmol/L BUN 3 L (7-17) mg/dL Creatinine 0.5 L (0.7-1.2) mg/dL Glucose 97 (65-100) mg/dL Calcium 7.4 L (8.4-10.2) mg/dL
[2018-02-13] MEDS: KCL 10MEQ/100ML 10 MEQ/100 ML BAG IV SCH ×2 (10:51→10:57)
[2018-02-13] MEDS: HEPARIN/ 0.45% NACL-25,000 UNIT/500 ML 25,000 UNIT/500 ML BAG IV SCH (10:53)
--- NOTE | 2018-02-13 12:32 | Hem/Onc Progress Note ---
Assessment and Plan We will hold off chemotherapy for now until she has a new port put in. Patient can be switched to" Eliquis or xarelto. Continue a/b Hemoglobin low. Will follow Subjective Date of service: 02/13/18 Interval history: Events noted. Patient has had her Port-A-Cath removed. There was also DVT and she is currently on anticoagulation in the form of heparin. Feels much better. Objective - Constitutional Vitals: Last Vital Signs Temp 98.3 F 02/13/18 07:28 Pulse 103 H 02/13/18 07:28 Resp 20 02/13/18 07:28 BP 146/83 02/13/18 07:28 Pulse Ox 97 02/13/18 07:28 General appearance: no acute distress - Neck Neck: supple - Respiratory Respiratory effort: Positive: normal - Cardiovascular Rhythm: regular Extremities: No edema - Gastrointestinal General gastrointestinal: Present: soft - Labs Lab Results: Laboratory Results - last 24 hr 02/12/18 02/12/18 02/12/18 14:07 14:07 17:32 WBC RBC Hgb 8.1 L Hct 27.0 L MCV MCH MCHC RDW Plt Count 253 Lymph % (Auto) [place] % (Auto) Eos % (Auto) Baso % (Auto) Lymph # [place] # Eos # Baso # Seg Neutrophils % Seg Neutrophils # PT 14.6 INR 1.08 APTT 36.4 Heparin Anti-Xa Level Sodium Potassium Chloride Carbon Dioxide Anion Gap BUN Creatinine Estimated GFR BUN/Creatinine Ratio Glucose Calcium C-Reactive Protein 13.80 H 02/12/18 02/13/18 02/13/18 23:06 00:42 00:42 WBC 11.0 RBC 3.18 L Hgb 7.3 L Hct 23.0 L MCV 72 L MCH 23 L MCHC 32 RDW 19.1 H Plt Count 222 Lymph % (Auto) 11.5 L [place] % (Auto) 8.5 H Eos % (Auto) 0.2 Baso % (Auto) 0.2 Lymph # 1.3 [place] # 0.9 H Eos # 0.0 Baso # 0.0 Seg Neutrophils % 79.6 H Seg Neutrophils # 8.7 H PT INR APTT Heparin Anti-Xa Level 0.27 L Sodium 137 Potassium 3.2 L Chloride 100.8 Carbon Dioxide 20 L Anion Gap 19 BUN 3 L Creatinine 0.5 L Estimated GFR > 60 BUN/Creatinine Ratio 6 Glucose 97 Calcium 7.4 L C-Reactive Protein
[2018-02-13] MEDS: K-DUR PO SCH ×2 (14:46→21:52)
[2018-02-13] MEDS: NORCO 5/325 PO PRN ×2 (14:46→21:52)
--- NOTE | 2018-02-13 17:06 | Progress Note ---
Assessment and Plan Assessment: 1) Sepsis: better. Etiology most likely bacteremia 2) MRSA bacteremia: likely from infected port a cath with right IJ thrombus -Port placed on 01/31/18 -Blood cx 02/11 positive 2 of 4 bottles -Blood cx 02/12 pending -TTE no vegetations -Port removed 02/12 -CRP=13 3) Presumed right IJ septic thrombophlebitis: on heparin -Doppler showed right IJ DVT -CT neck Right IJ cath undulating course, presumed right IJ and SC vein thrombus and right sternomastoid muscle with a small abscess 4) Colon cancer stage II s/p colectomy 5) Anemia Plan: -continue vancomcyin -stop cefazolin -f/u repeat blood cx -if persistent fever or bacteremia will consult vascular -upon discharge will do vancomycin 1,250 mg IV q 12 hours for 6 weeks until in view of septic thrombophlebitis and MRSA septicemia. -place PICC line once blood cx negative for 48h -ID clinic f/u in 2 weeks after d/c Thank you for your consultation, will follow up with you. Michelle Fitch MD Infectious Diseases Specialist [facility] ([facility]) M [phone] O [phone] Subjective Date of service: 02/13/18 Principal diagnosis: Sepsis, anmeia of chronic disease Interval history: Was feeling much better this morning but now feels sick again c/o neck pain. Fever improving. Microbiology: Blood cultures: 02/11 MRSA 2 of 4 bottles 02/12 ngtd Urine cultures: Current Antimicrobials: Vancomycin 02/12 Previous Antimicrobials: Zosyn 02/12 Objective - Exam Narrative Exam: General appearance: Alert in NAD, conversant Eyes: anicteric sclerae, moist conjunctivae; no lid-lag; PERRLA HENT: Atraumatic; oropharynx clear. Neck: +marked tendeness and swelling right neck and SC area Lungs: CTA, with normal respiratory effort and no intercostal retractions CV: tachy Abdomen: Soft, non-tender; +midline surg scar well healed Extremities: No peripheral edema or extremity lymphadenopathy Skin: Normal temperature, turgor and texture; no rash, ulcers or subcutaneous nodules Psych: Appropriate affect, alert and oriented to person, place and time. Neuro: alert and oriented x 3. Moving all extermities Lines: - Constitutional Vitals: Vital Signs Temp Pulse Resp BP Pulse Ox 99.2 F 101 H 20 137/80 99 02/13/18 15:11 02/13/18 15:11 02/13/18 15:11 02/13/18 15:11 02/13/18 15:11 Temperature -Last 24 Hours Temperature 99.2 F Temperature 98.3 F Temperature 98.1 F Temperature 100.4 F Temperature 100.1 F - Labs CBC & Chem 7: 02/13/18 00:42 02/13/18 00:42 Labs: Abnormal lab results 02/12/18 02/12/18 02/13/18 Range/Units 17:32 23:06 00:42 RBC (3.65-5.03) M/mm3 Hgb (10.1-14.3) gm/dl Hct (30.3-42.9) % MCV (79-97) fl MCH (28-32) pg RDW (13.2-15.2) % Lymph % (Auto) (13.4-35.0) % [place] % (Auto) (0.0-7.3) % [place] # (0.0-0.8) K/mm3 Seg Neutrophils % (40.0-70.0) % Seg Neutrophils # (1.8-7.7) K/mm3 Heparin Anti-Xa Level 0.27 L (0.3-0.7) U.I./ml Potassium 3.2 L (3.6-5.0) mmol/L Carbon Dioxide 20 L (22-30) mmol/L BUN 3 L (7-17) mg/dL Creatinine 0.5 L (0.7-1.2) mg/dL Calcium 7.4 L (8.4-10.2) mg/dL C-Reactive Protein 13.80 H (0.00-1.30) mg/dL 02/13/18 Range/Units 00:42 RBC 3.18 L (3.65-5.03) M/mm3 Hgb 7.3 L (10.1-14.3) gm/dl Hct 23.0 L (30.3-42.9) % MCV 72 L (79-97) fl MCH 23 L (28-32) pg RDW 19.1 H (13.2-15.2) % Lymph % (Auto) 11.5 L (13.4-35.0) % [place] % (Auto) 8.5 H (0.0-7.3) % [place] # 0.9 H (0.0-0.8) K/mm3 Seg Neutrophils % 79.6 H (40.0-70.0) % Seg Neutrophils # 8.7 H (1.8-7.7) K/mm3 Heparin Anti-Xa Level (0.3-0.7) U.I./ml Potassium (3.6-5.0) mmol/L Carbon Dioxide (22-30) mmol/L BUN (7-17) mg/dL Creatinine (0.7-1.2) mg/dL Calcium (8.4-10.2) mg/dL C-Reactive Protein (0.00-1.30) mg/dL
[2018-02-14] MEDS: VANCOMYCIN 1,250 MG in NACL 0.9% 250ML 250 ML IV SCH (00:32)
[2018-02-14] MEDS: NORCO 5/325 PO PRN ×3 (05:58→23:03)
--- NOTE | 2018-02-14 08:55 | Progress Note ---
Assessment and Plan Acute Sepsis Syndrome with Bacteremia Acute DVT Right IJ /Subclavian Anemia of chronic disease. Hypokalemia h/o Colon cancer Mild acute Hypokalemia Right neck swelling and pain Obese Full code status Plan Continue with Cefazolin and Vanc per ID consulted Heparin drip per protocol bleeding precautions at all times am labs. replete K further d/w pt and RN No blood cX report so far. Continue to follow Further pt mgt per hospital course Port removed 2D Echo pebnding contact precautions inputs and recs of the specialists appreciated. Subjective Date of service: 02/14/18 Principal diagnosis: Sepsis, anmeia of chronic disease Interval history: Pt seen and examined. No new complaint. Objective - Constitutional Vitals: Vital Signs - 12hr 02/13/18 02/14/18 23:51 07:53 Temperature 99.6 F 99.2 F Pulse Rate 102 H 98 H Respiratory 20 20 Rate Blood Pressure 127/77 132/82 O2 Sat by Pulse 94 97 Oximetry General appearance: Present: no acute distress, well-nourished - EENT Eyes: PERRL, EOM intact - Neck Neck: supple, normal ROM - Respiratory Respiratory effort: normal Respiratory: bilateral: CTA - Cardiovascular Rhythm: regular Heart Sounds: Present: S1 & S2. Absent: gallop, rub Extremities: pulses intact, No edema, normal color, Full ROM - Gastrointestinal General gastrointestinal: Present: soft, non-tender, non-distended, normal bowel sounds - Integumentary Integumentary: clear, warm, dry - Musculoskeletal Musculoskeletal: 1, strength equal bilaterally - Neurologic Neurologic: moves all extremities - Psychiatric Psychiatric: memory intact, appropriate mood/affect, intact judgment & insight - Labs CBC & Chem 7: 02/13/18 00:42 02/13/18 00:42 Labs: Abnormal lab results 02/13/18 Range/Units 23:19 Heparin Anti-Xa Level 0.23 L (0.3-0.7) U.I./ml
--- NOTE | 2018-02-14 09:06 | Hem/Onc Progress Note ---
Assessment and Plan Patient has MRSA and is being treated for that. Hemoglobin down. We will transfuse her packed RBCs. Do iron studies also. May need iron infusion which we can arrange for as outpatient or if she still here in a few days may give it to her while she is here. Patient aware area and Subjective Date of service: 02/14/18 Interval history: Feeling poorly today. Having chills. Denies any active bleeding currently. Does complain of heavy periods Objective - Constitutional Vitals: Last Vital Signs Temp 99.2 F 02/14/18 07:53 Pulse 98 H 02/14/18 07:53 Resp 20 02/14/18 07:53 BP 132/82 02/14/18 07:53 Pulse Ox 97 02/14/18 07:53 Performance status: 2- selfcare, ambulatory - Neck Neck: supple - Respiratory Respiratory effort: Positive: normal - Cardiovascular Rhythm: regular - Gastrointestinal General gastrointestinal: Present: soft - Labs Lab Results: Laboratory Results - last 24 hr 02/13/18 02/13/18 23:19 23:20 Heparin Anti-Xa Level 0.23 L Vancomycin Trough 10.0
[2018-02-14] MEDS: HEPARIN/ 0.45% NACL-25,000 UNIT/500 ML 25,000 UNIT/500 ML BAG IV SCH (09:33)
[2018-02-14] MEDS: K-DUR PO SCH ×2 (09:35→22:00)
[2018-02-14] MEDS: VANCOMYCIN 1,750 MG in NACL 0.9% 500 ML 500 ML IV SCH ×2 (10:22→22:00)
--- NOTE | 2018-02-14 10:25 | Progress Note ---
Assessment and Plan - Patient Problems (1) Fever Current Visit: Yes Status: Acute Qualifiers: Fever type: unspecified Qualified Code(s): R50.9 - Fever, unspecified Plan to address problem: Pt stable. Catheter culture with Staph. If wound remains clean, will close with steri-strips tomorrow. Staff to do dressing change today. Please call with any questions. Subjective Date of service: 02/14/18 Patient Reports: Positive: no new complaints (feels about the same.) Objective Vital Signs - 12hr 02/13/18 02/14/18 23:51 07:53 Temperature 99.6 F 99.2 F Pulse Rate 102 H 98 H Respiratory 20 20 Rate Blood Pressure 127/77 132/82 O2 Sat by Pulse 94 97 Oximetry - General physical appearance no distress, no pain - Eyes normal occular movement - Respiratory normal expansion, normal respiratory effort - Integumentary other (dressing intact. No erythema around the port site.) - Labs 02/13/18 00:42 02/13/18 00:42
[2018-02-14 11:42] LABS: Basophils % (Auto) 0.3 % (0.0-1.8); Eosinophils # (Auto) 0.2 K/mm3 (0.0-0.4); Eosinophils % (Auto) 1.8 % (0.0-4.3); Hematocrit 22.3 % (30.3-42.9); Hemoglobin 7.1 gm/dl (10.1-14.3); Lymphocytes # (Auto) 1.6 K/mm3 (1.2-5.4); Lymphocytes % (Auto) 17.8 % (13.4-35.0); Mean Corpuscular HGB Conc 32 % (30-34); Mean Corpuscular Hemoglobin 23 pg (28-32); Mean Corpuscular Volume 72 fl (79-97); Monocytes # (Auto) 0.8 K/mm3 (0.0-0.8); Monocytes % (Auto) 8.6 % (0.0-7.3); Platelet Count 263 K/mm3 (140-440); Red Cell Distribution Width 18.7 % (13.2-15.2)
[2018-02-14 11:56] LABS: BUN/Creatinine Ratio 10; Blood Urea Nitrogen 4 mg/dL (7-17); Calcium 7.7 mg/dL (8.4-10.2); Hemolysis Index 0
[2018-02-14 12:00] LABS: % Iron Saturation 6.61 %
[2018-02-14] MEDS ORDERED: NACL 0.9% 500 ML 500 ML IV ONE (12:00)
--- NOTE | 2018-02-14 17:16 | Progress Note ---
Assessment and Plan Assessment: 1) Sepsis: better. Etiology most likely bacteremia 2) MRSA bacteremia: likely from infected port a cath with right IJ thrombus -Port placed on 01/31/18 -Blood cx 02/11 positive 2 of 4 bottles -Blood cx 02/12 pending -TTE no vegetations -Port removed 02/12 -CRP=13 3) Presumed right IJ septic thrombophlebitis: on heparin -Doppler showed right IJ DVT -CT neck Right IJ cath undulating course, presumed right IJ and SC vein thrombus and right sternomastoid muscle with a small abscess 4) Colon cancer stage II s/p colectomy 5) Anemia Plan: -consult Vascular in view of persistent severe right neck pain and swelling ? worsening septic thrombophlebitis continue vancomcyin -f/u repeat blood cx -upon discharge will do vancomycin 1,250 mg IV q 12 hours for 6 weeks until in view of septic thrombophlebitis and MRSA septicemia. -place PICC line once blood cx negative for 48h -ID clinic f/u in 2 weeks after d/c I am off until call me if questions Thank you for your consultation, will follow up with you. Michelle Fitch MD Infectious Diseases Specialist [facility] ([facility]) M [phone] O [phone] Subjective Date of service: 02/14/18 Principal diagnosis: Sepsis, anmeia of chronic disease Interval history: Still c/o right neck pain. NO fever. Microbiology: Blood cultures: 02/11 MRSA 2 of 4 bottles 02/12 ngtd Urine cultures: Current Antimicrobials: Vancomycin 02/12 Previous Antimicrobials: Zosyn 02/12 Objective - Exam Narrative Exam: General appearance: Alert in NAD, conversant Eyes: anicteric sclerae, moist conjunctivae; no lid-lag; PERRLA HENT: Atraumatic; oropharynx clear. Neck: +marked tendeness and swelling right neck and SC area Lungs: CTA, with normal respiratory effort and no intercostal retractions CV: tachy Abdomen: Soft, non-tender; +midline surg scar well healed Extremities: No peripheral edema or extremity lymphadenopathy Skin: Normal temperature, turgor and texture; no rash, ulcers or subcutaneous nodules Psych: Appropriate affect, alert and oriented to person, place and time. Neuro: alert and oriented x 3. Moving all extermities Lines: - Constitutional Vitals: Vital Signs Temp Pulse Resp BP Pulse Ox 98.3 F 96 H 18 130/83 97 02/14/18 15:41 02/14/18 15:41 02/14/18 15:41 02/14/18 15:41 02/14/18 13:56 Temperature -Last 24 Hours Temperature 98.3 F Temperature 98.1 F Temperature 98 F Temperature 98.8 F Temperature 98.7 F Temperature 99.5 F Temperature 99.5 F Temperature 99.2 F Temperature 99.6 F - Labs CBC & Chem 7: 02/14/18 11:03 02/14/18 11:03 Labs: Abnormal lab results 02/13/18 02/14/18 02/14/18 Range/Units 23:19 11:03 11:03 RBC 3.10 L (3.65-5.03) M/mm3 Hgb 7.1 L (10.1-14.3) gm/dl Hct 22.3 L (30.3-42.9) % MCV 72 L (79-97) fl MCH 23 L (28-32) pg RDW 18.7 H (13.2-15.2) % [place] % (Auto) 8.6 H (0.0-7.3) % Seg Neutrophils % 71.5 H (40.0-70.0) % Heparin Anti-Xa Level 0.23 L (0.3-0.7) U.I./ml Carbon Dioxide 21 L (22-30) mmol/L BUN 4 L (7-17) mg/dL Creatinine 0.4 L (0.7-1.2) mg/dL Calcium 7.7 L (8.4-10.2) mg/dL Iron (37-170) ug/dL Crossmatch 02/14/18 02/14/18 Range/Units 11:03 11:03 RBC (3.65-5.03) M/mm3 Hgb (10.1-14.3) gm/dl Hct (30.3-42.9) % MCV (79-97) fl MCH (28-32) pg RDW (13.2-15.2) % [place] % (Auto) (0.0-7.3) % Seg Neutrophils % (40.0-70.0) % Heparin Anti-Xa Level (0.3-0.7) U.I./ml Carbon Dioxide (22-30) mmol/L BUN (7-17) mg/dL Creatinine (0.7-1.2) mg/dL Calcium (8.4-10.2) mg/dL Iron 17 L (37-170) ug/dL Crossmatch See Detail
[2018-02-15] MEDS: HEPARIN/ 0.45% NACL-25,000 UNIT/500 ML 25,000 UNIT/500 ML BAG IV SCH ×2 (03:30→23:18)
[2018-02-15 07:22] LABS: Hemoglobin 8.1 gm/dl (10.1-14.3); Mean Corpuscular HGB Conc 31 % (30-34); Mean Corpuscular Volume 75 fl (79-97); Platelet Count 279 K/mm3 (140-440); Red Blood Count 3.49 M/mm3 (3.65-5.03); Red Cell Distribution Width 19.5 % (13.2-15.2)
[2018-02-15 07:31] LABS: Mean Corpuscular Hemoglobin 23 pg (28-32)
[2018-02-15 07:47] LABS: Alanine Aminotransferase 41 units/L (7-56); BUN/Creatinine Ratio 10; Blood Urea Nitrogen 4 mg/dL (7-17); Calcium 8.1 mg/dL (8.4-10.2); Hemolysis Index 0
[2018-02-15] MEDS: K-DUR PO SCH ×2 (09:29→21:28)
[2018-02-15] MEDS: NORCO 5/325 PO PRN ×2 (09:42→23:22)
[2018-02-15] MEDS: VANCOMYCIN 1,750 MG in NACL 0.9% 500 ML 500 ML IV SCH ×2 (09:43→21:28)
--- NOTE | 2018-02-15 10:39 | Progress Note ---
Assessment and Plan Acute Sepsis Syndrome with Bacteremia - imporving Acute DVT Right IJ /Subclavian Anemia of chronic disease. Hypokalemia h/o Colon cancer Mild acute Hypokalemia Right neck swelling and pain Obese Full code status Plan Continue with Cefazolin and Vanc per ID consulted Heparin drip per protocol bleeding precautions at all times Replete K further d/w pt and RN CX report positive for Staph aurues 2D Echo 50-55% EF. No vegetation contact precautions inputs and recs of the specialists appreciated. Subjective Date of service: 02/15/18 Principal diagnosis: Sepsis, anmeia of chronic disease Interval history: Pt seen and examined. No new complaint. No fever Objective - Constitutional Vitals: Vital Signs - 12hr 02/14/18 02/15/18 23:59 07:58 Temperature 99.8 F H 98.7 F Pulse Rate 98 H 92 H Respiratory 18 20 Rate Blood Pressure 145/82 147/88 O2 Sat by Pulse 95 96 Oximetry General appearance: Present: no acute distress, well-nourished - EENT Eyes: PERRL, EOM intact ENT: hearing intact Ears: bilateral: normal - Neck Neck: supple, normal ROM - Respiratory Respiratory effort: normal Respiratory: bilateral: CTA - Cardiovascular Rhythm: regular Heart Sounds: Present: S1 & S2. Absent: gallop, rub Extremities: pulses intact, No edema, normal color, Full ROM - Gastrointestinal General gastrointestinal: Present: soft, non-tender, non-distended, normal bowel sounds - Integumentary Integumentary: clear, warm, dry - Musculoskeletal Musculoskeletal: 1, strength equal bilaterally - Neurologic Neurologic: moves all extremities - Psychiatric Psychiatric: memory intact, appropriate mood/affect, intact judgment & insight - Labs CBC & Chem 7: 02/15/18 06:21 02/15/18 06:21 Labs: Abnormal lab results 02/14/18 02/14/18 02/14/18 Range/Units 11:03 11:03 11:03 RBC 3.10 L (3.65-5.03) M/mm3 Hgb 7.1 L (10.1-14.3) gm/dl Hct 22.3 L (30.3-42.9) % MCV 72 L (79-97) fl MCH 23 L (28-32) pg RDW 18.7 H (13.2-15.2) % [place] % (Auto) 8.6 H (0.0-7.3) % Seg Neutrophils % 71.5 H (40.0-70.0) % Heparin Anti-Xa Level (0.3-0.7) U.I./ml Potassium (3.6-5.0) mmol/L Carbon Dioxide 21 L (22-30) mmol/L BUN 4 L (7-17) mg/dL Creatinine 0.4 L (0.7-1.2) mg/dL Calcium 7.7 L (8.4-10.2) mg/dL Iron 17 L (37-170) ug/dL Alkaline Phosphatase (35-129) units/L Albumin (3.9-5) g/dL Crossmatch 02/14/18 02/14/18 02/15/18 Range/Units 11:03 23:46 06:21 RBC 3.49 L (3.65-5.03) M/mm3 Hgb 8.1 L (10.1-14.3) gm/dl Hct 26.0 L (30.3-42.9) % MCV 75 L (79-97) fl MCH 23 L (28-32) pg RDW 19.5 H (13.2-15.2) % [place] % (Auto) (0.0-7.3) % Seg Neutrophils % (40.0-70.0) % Heparin Anti-Xa Level 0.23 L (0.3-0.7) U.I./ml Potassium (3.6-5.0) mmol/L Carbon Dioxide (22-30) mmol/L BUN (7-17) mg/dL Creatinine (0.7-1.2) mg/dL Calcium (8.4-10.2) mg/dL Iron (37-170) ug/dL Alkaline Phosphatase (35-129) units/L Albumin (3.9-5) g/dL Crossmatch See Detail 02/15/18 Range/Units 06:21 RBC (3.65-5.03) M/mm3 Hgb (10.1-14.3) gm/dl Hct (30.3-42.9) % MCV (79-97) fl MCH (28-32) pg RDW (13.2-15.2) % [place] % (Auto) (0.0-7.3) % Seg Neutrophils % (40.0-70.0) % Heparin Anti-Xa Level (0.3-0.7) U.I./ml Potassium 3.5 L (3.6-5.0) mmol/L Carbon Dioxide (22-30) mmol/L BUN 4 L (7-17) mg/dL Creatinine 0.4 L (0.7-1.2) mg/dL Calcium 8.1 L (8.4-10.2) mg/dL Iron (37-170) ug/dL Alkaline Phosphatase 134 H (35-129) units/L Albumin 3.0 L (3.9-5) g/dL Crossmatch
[2018-02-15 11:32] LABS: Anisocytosis 1+; Band Neutrophils # (Manual) 0.1 K/mm3; Basophils % (Manual) 0 % (0.0-1.8); Platelet Estimate Consistent w Auto; Total Cells Counted 100
--- NOTE | 2018-02-15 12:00 | Hem/Onc Progress Note ---
Assessment and Plan 1- MRSA- on antibiotics. probable discharge home next week with IV antibiotics. port has been removed 2- colon cancer- treatment per Dr Pina Subjective Date of service: 02/15/18 Interval history: No complaints. Objective - Constitutional Vitals: Last Vital Signs Temp 98.7 F 02/15/18 07:58 Pulse 92 H 02/15/18 07:58 Resp 20 02/15/18 07:58 BP 147/88 02/15/18 07:58 Pulse Ox 96 02/15/18 07:58 General appearance: no acute distress - EENT Eyes: PERRL - Respiratory Respiratory effort: Positive: normal - Integumentary Integumentary: clear (Rt chest with incision of recent port removal) - Labs Lab Results: Laboratory Results - last 24 hr 02/14/18 02/14/18 02/14/18 11:03 11:03 11:03 WBC RBC Hgb Hct MCV MCH MCHC RDW Plt Count Add Manual Diff Total Counted Seg Neuts % (Manual) Band Neutrophils % Lymphocytes % (Manual) Reactive Lymphs % (Man) Monocytes % (Manual) Eosinophils % (Manual) Basophils % (Manual) Metamyelocytes % Myelocytes % Promyelocytes % Blast Cells % Nucleated RBC % Seg Neutrophils # Man Band Neutrophils # Lymphocytes # (Manual) Abs React Lymphs (Man) Monocytes # (Manual) Eosinophils # (Manual) Basophils # (Manual) Metamyelocytes # Myelocytes # Promyelocytes # Blast Cells # WBC Morphology Hypersegmented Neuts Hyposegmented Neuts Hypogranular Neuts Smudge Cells Toxic Granulation Toxic Vacuolation Dohle Bodies Pelger-Huet Anomaly Emilie Rods Platelet Estimate Clumped Platelets Plt Clumps, EDTA Large Platelets Giant Platelets Platelet Satelliting Plt Morphology Comment RBC Morphology Dimorphic RBCs Polychromasia Hypochromasia Poikilocytosis Anisocytosis Microcytosis Macrocytosis Spherocytes Pappenheimer Bodies Sickle Cells Target Cells Tear Drop Cells Ovalocytes Helmet Cells [place]-Three Way Bodies [place] Rings Humza Cells Bite Cells Crenated Cell Elliptocytes Acanthocytes (Spur) Rouleaux Hemoglobin C Crystals Schistocytes Malaria parasites Johnie Bodies Hem Pathologist Commnt Heparin Anti-Xa Level Sodium Potassium Chloride Carbon Dioxide Anion Gap BUN Creatinine Estimated GFR BUN/Creatinine Ratio Glucose Calcium Iron 17 L TIBC 257 % Saturation 6.61 Transferrin 218 Ferritin 60.7 Total Bilirubin AST ALT Alkaline Phosphatase Total Protein Albumin Albumin/Globulin Ratio Vitamin B12 478.4 Folate Blood Type Antibody Screen Crossmatch 02/14/18 02/14/18 02/14/18 11:03 11:03 23:46 WBC RBC Hgb Hct MCV MCH MCHC RDW Plt Count Add Manual Diff Total Counted Seg Neuts % (Manual) Band Neutrophils % Lymphocytes % (Manual) Reactive Lymphs % (Man) Monocytes % (Manual) Eosinophils % (Manual) Basophils % (Manual) Metamyelocytes % Myelocytes % Promyelocytes % Blast Cells % Nucleated RBC % Seg Neutrophils # Man Band Neutrophils # Lymphocytes # (Manual) Abs React Lymphs (Man) Monocytes # (Manual) Eosinophils # (Manual) Basophils # (Manual) Metamyelocytes # Myelocytes # Promyelocytes # Blast Cells # WBC Morphology Hypersegmented Neuts Hyposegmented Neuts Hypogranular Neuts Smudge Cells Toxic Granulation Toxic Vacuolation Dohle Bodies Pelger-Huet Anomaly Emilie Rods Platelet Estimate Clumped Platelets Plt Clumps, EDTA Large Platelets Giant Platelets Platelet Satelliting Plt Morphology Comment RBC Morphology Dimorphic RBCs Polychromasia Hypochromasia Poikilocytosis Anisocytosis Microcytosis Macrocytosis Spherocytes Pappenheimer Bodies Sickle Cells Target Cells Tear Drop Cells Ovalocytes Helmet Cells [place] Way Bodies [place] Rings [place] Cells Bite Cells Crenated Cell Elliptocytes Acanthocytes (Spur) Rouleaux Hemoglobin C Crystals Schistocytes Malaria parasites Johnie Bodies Hem Pathologist Commnt Heparin Anti-Xa Level 0.23 L Sodium Potassium Chloride Carbon Dioxide Anion Gap BUN Creatinine Estimated GFR BUN/Creatinine Ratio Glucose Calcium Iron TIBC % Saturation Transferrin Ferritin Total Bilirubin AST ALT Alkaline Phosphatase Total Protein Albumin Albumin/Globulin Ratio Vitamin B12 Folate 8.36 Blood Type B POSITIVE Antibody Screen Negative Crossmatch See Detail 02/15/18 02/15/18 06:21 06:21 WBC 8.9 RBC 3.49 L Hgb 8.1 L Hct 26.0 L MCV 75 L MCH 23 L MCHC 31 RDW 19.5 H Plt Count 279 Add Manual Diff Complete Total Counted 100 Seg Neuts % (Manual) 75.0 H Band Neutrophils % 1.0 Lymphocytes % (Manual) 15.0 Reactive Lymphs % (Man) 1.0 Monocytes % (Manual) 6.0 Eosinophils % (Manual) 2.0 Basophils % (Manual) 0 Metamyelocytes % 0 Myelocytes % 0 Promyelocytes % 0 Blast Cells % 0 Nucleated RBC % Not Reportable Seg Neutrophils # Man 6.7 Band Neutrophils # 0.1 Lymphocytes # (Manual) 1.3 Abs React Lymphs (Man) 0.1 Monocytes # (Manual) 0.5 Eosinophils # (Manual) 0.2 Basophils # (Manual) 0.0 Metamyelocytes # 0.0 Myelocytes # 0.0 Promyelocytes # 0.0 Blast Cells # 0.0 WBC Morphology Not Reportable Hypersegmented Neuts Not Reportable Hyposegmented Neuts Not Reportable Hypogranular Neuts Not Reportable Smudge Cells Not Reportable Toxic Granulation Not Reportable Toxic Vacuolation Not Reportable Dohle Bodies Not Reportable Pelger-Huet Anomaly Not Reportable Emilie Rods Not Reportable Platelet Estimate Consistent w auto Clumped Platelets Not Reportable Plt Clumps, EDTA Not Reportable Large Platelets Not Reportable Giant Platelets Not Reportable Platelet Satelliting Not Reportable Plt Morphology Comment Not Reportable RBC Morphology Not Reportable Dimorphic RBCs Not Reportable Polychromasia Not Reportable Hypochromasia Not Reportable Poikilocytosis Not Reportable Anisocytosis 1+ Microcytosis Not Reportable Macrocytosis Not Reportable Spherocytes Not Reportable Pappenheimer Bodies Not Reportable Sickle Cells Not Reportable Target Cells Not Reportable Tear Drop Cells Not Reportable Ovalocytes Not Reportable Helmet Cells Not Reportable [place]-Three [place] Bodies Not Reportable [place] Rings Not Reportable [place] Cells Not Reportable Bite Cells Not Reportable Crenated Cell Not Reportable Elliptocytes Not Reportable Acanthocytes (Spur) Not Reportable Rouleaux Not Reportable Hemoglobin C Crystals Not Reportable Schistocytes Not Reportable Malaria parasites Not Reportable Johnie Bodies Not Reportable Hem Pathologist Commnt No Heparin Anti-Xa Level Sodium 142 Potassium 3.5 L Chloride 105.9 Carbon Dioxide 22 Anion Gap 18 BUN 4 L Creatinine 0.4 L Estimated GFR > 60 BUN/Creatinine Ratio 10 Glucose 86 Calcium 8.1 L Iron TIBC % Saturation Transferrin Ferritin Total Bilirubin 0.40 AST 29 ALT 41 Alkaline Phosphatase 134 H Total Protein 6.6 Albumin 3.0 L Albumin/Globulin Ratio 0.8 Vitamin B12 Folate Blood Type Antibody Screen Crossmatch
--- NOTE | 2018-02-15 14:06 | Progress Note ---
Assessment and Plan 52-year-old female with sepsis, infected port status post removal 1. wound approximated with steri strips 2. continue IV abx 3. PRN pain control 4. reg diet Subjective Date of service: 02/15/18 Narrative: Pt seen and examined. Feels better today. Tolerating a diet. No nausea, vomiting. MAXIMUM TEMPERATURE 99.8 overnight. Pain is controlled. Objective Vital Signs - 12hr 02/15/18 07:58 Temperature 98.7 F Pulse Rate 92 H Respiratory 20 Rate Blood Pressure 147/88 O2 Sat by Pulse 96 Oximetry - General physical appearance Narrative Exam: General: Awake, alert, oriented 3. No apparent distress Chest: Right upper chest wound dressing removed. One piece of packing removed from the wound. The wound is clean and has a red base. No surrounding erythema or induration. Wound was cleansed with a 4 x 4 gauze, skin prep applied, and wound edges approximated using Steri-Strips. Abdomen: Soft, nontender, nondistended. Well-healed midline scar. - Labs 02/15/18 06:21 02/15/18 06:21 Diabetes panel 02/15/18 Range/Units 06:21 Sodium 142 (137-145) mmol/L Potassium 3.5 L (3.6-5.0) mmol/L Chloride 105.9 (98-107) mmol/L Carbon Dioxide 22 (22-30) mmol/L BUN 4 L (7-17) mg/dL Creatinine 0.4 L (0.7-1.2) mg/dL Glucose 86 (65-100) mg/dL Calcium 8.1 L (8.4-10.2) mg/dL AST 29 (5-40) units/L ALT 41 (7-56) units/L Alkaline Phosphatase 134 H (35-129) units/L Total Protein 6.6 (6.3-8.2) g/dL Albumin 3.0 L (3.9-5) g/dL Calcium panel 02/15/18 Range/Units 06:21 Calcium 8.1 L (8.4-10.2) mg/dL Albumin 3.0 L (3.9-5) g/dL Pituitary panel 02/15/18 Range/Units 06:21 Sodium 142 (137-145) mmol/L Potassium 3.5 L (3.6-5.0) mmol/L Chloride 105.9 (98-107) mmol/L Carbon Dioxide 22 (22-30) mmol/L BUN 4 L (7-17) mg/dL Creatinine 0.4 L (0.7-1.2) mg/dL Glucose 86 (65-100) mg/dL Calcium 8.1 L (8.4-10.2) mg/dL Adrenal panel 02/15/18 Range/Units 06:21 Sodium 142 (137-145) mmol/L Potassium 3.5 L (3.6-5.0) mmol/L Chloride 105.9 (98-107) mmol/L Carbon Dioxide 22 (22-30) mmol/L BUN 4 L (7-17) mg/dL Creatinine 0.4 L (0.7-1.2) mg/dL Glucose 86 (65-100) mg/dL Calcium 8.1 L (8.4-10.2) mg/dL Total Bilirubin 0.40 (0.1-1.2) mg/dL AST 29 (5-40) units/L ALT 41 (7-56) units/L Alkaline Phosphatase 134 H (35-129) units/L Total Protein 6.6 (6.3-8.2) g/dL Albumin 3.0 L (3.9-5) g/dL
[2018-02-16 06:45] LABS: Hematocrit 27.3 % (30.3-42.9); Hemoglobin 8.7 gm/dl (10.1-14.3); Mean Corpuscular HGB Conc 32 % (30-34); Mean Corpuscular Volume 74 fl (79-97); Platelet Count 333 K/mm3 (140-440); Red Blood Count 3.69 M/mm3 (3.65-5.03); Red Cell Distribution Width 19.5 % (13.2-15.2)
[2018-02-16 06:54] LABS: Mean Corpuscular Hemoglobin 24 pg (28-32)
[2018-02-16 07:01] LABS: Eosinophils # (Auto) 0.2 K/mm3 (0.0-0.4); Eosinophils % (Auto) 2.3 % (0.0-4.3); Monocytes # (Auto) 0.7 K/mm3 (0.0-0.8)
[2018-02-16 07:12] LABS: Alanine Aminotransferase 50 units/L (7-56); Albumin 3.2 g/dL (3.9-5); BUN/Creatinine Ratio 10; Blood Urea Nitrogen 4 mg/dL (7-17); Calcium 8.2 mg/dL (8.4-10.2); Hemolysis Index 0
[2018-02-16] MEDS: VANCOMYCIN 1,750 MG in NACL 0.9% 500 ML 500 ML IV SCH ×2 (09:14→22:10)
--- NOTE | 2018-02-16 10:37 | Progress Note ---
Assessment and Plan Acute Sepsis Syndrome with Bacteremia - from infection port site - improving Acute DVT Right IJ /Subclavian Anemia of chronic disease. Hypokalemia - corrected h/o Colon cancer Right neck swelling and pain - improved Obese Full code status Plan Continue with Cefazolin and Vanc per ID consulted Heparin drip per protocol bleeding precautions at all times d/w pt and RN Cx report positive for Staph aurues 2D Echo 50-55% EF. No vegetation contact precautions inputs and recs of the specialists appreciated. d/c planning in 1-2 after completing iv antibiotic Subjective Date of service: 02/16/18 Principal diagnosis: Sepsis, anmeia of chronic disease Interval history: Pt seen and examined. No new complaint. No fever Objective - Constitutional Vitals: Vital Signs - 12hr 02/15/18 02/16/18 23:26 08:38 Temperature 98.8 F 98.3 F Pulse Rate 96 H 98 H Respiratory 18 20 Rate Blood Pressure 153/83 151/90 [Right] O2 Sat by Pulse 94 Oximetry General appearance: Present: no acute distress, well-nourished - EENT Eyes: PERRL, EOM intact Ears: bilateral: normal - Neck Neck: supple, normal ROM - Respiratory Respiratory effort: normal Respiratory: bilateral: CTA - Cardiovascular Rhythm: regular Heart Sounds: Present: S1 & S2. Absent: gallop, rub Extremities: pulses intact, No edema, normal color, Full ROM - Gastrointestinal General gastrointestinal: Present: soft, non-tender, non-distended, normal bowel sounds - Integumentary Integumentary: clear, warm, dry - Musculoskeletal Musculoskeletal: 1, strength equal bilaterally - Neurologic Neurologic: moves all extremities - Psychiatric Psychiatric: memory intact, appropriate mood/affect, intact judgment & insight - Labs CBC & Chem 7: 02/16/18 05:59 02/16/18 05:59 Labs: Abnormal lab results 02/15/18 02/15/18 02/16/18 Range/Units 06:21 23:03 05:59 Hgb 8.7 L (10.1-14.3) gm/dl Hct 27.3 L (30.3-42.9) % MCV 74 L (79-97) fl MCH 24 L (28-32) pg RDW 19.5 H (13.2-15.2) % Seg Neuts % (Manual) 75.0 H (40.0-70.0) % Heparin Anti-Xa Level 0.15 L (0.3-0.7) U.I./ml BUN (7-17) mg/dL Creatinine (0.7-1.2) mg/dL Calcium (8.4-10.2) mg/dL Alkaline Phosphatase (35-129) units/L Albumin (3.9-5) g/dL 02/16/18 Range/Units 05:59 Hgb (10.1-14.3) gm/dl Hct (30.3-42.9) % MCV (79-97) fl MCH (28-32) pg RDW (13.2-15.2) % Seg Neuts % (Manual) (40.0-70.0) % Heparin Anti-Xa Level (0.3-0.7) U.I./ml BUN 4 L (7-17) mg/dL Creatinine 0.4 L (0.7-1.2) mg/dL Calcium 8.2 L (8.4-10.2) mg/dL Alkaline Phosphatase 173 H (35-129) units/L Albumin 3.2 L (3.9-5) g/dL
[2018-02-16] MEDS: NORCO 5/325 PO PRN ×2 (11:28→18:29)
[2018-02-16 11:42] LABS: Anisocytosis 1+; Eosinophils % (Manual) 0 % (0.0-4.3); Hypochromasia Few; Total Cells Counted 100
[2018-02-16 11:44] LABS: Platelet Estimate Consistent w Auto
--- NOTE | 2018-02-16 14:00 | Progress Note ---
Assessment and Plan 52-year-old female with sepsis, infected port status post removal 1. wound approximated with steri strips 2. continue IV abx 3. PRN pain control 4. reg diet Subjective Date of service: 02/16/18 Narrative: Pt seen and examined. Feels well. States several steristrips fell off yesterday and wound edges came apart. Otherwise, no complaints. No f/c Objective Vital Signs - 12hr 02/16/18 08:38 Temperature 98.3 F Pulse Rate 98 H Respiratory 20 Rate Blood Pressure 151/90 [Right] O2 Sat by Pulse 94 Oximetry - General physical appearance Narrative Exam: General: Awake, alert, oriented 3. No apparent distress Chest: Right upper chest wound dressing removed and all steristrips came off with dressing. Wound is clean and dry and is 50% smaller today. Skin prep applied and new steristrips applied to approximate wound edges. - Labs 02/16/18 05:59 02/16/18 05:59 Diabetes panel 02/16/18 Range/Units 05:59 Sodium 142 (137-145) mmol/L Potassium 3.7 (3.6-5.0) mmol/L Chloride 103.5 (98-107) mmol/L Carbon Dioxide 22 (22-30) mmol/L BUN 4 L (7-17) mg/dL Creatinine 0.4 L (0.7-1.2) mg/dL Glucose 87 (65-100) mg/dL Calcium 8.2 L (8.4-10.2) mg/dL AST 35 (5-40) units/L ALT 50 (7-56) units/L Alkaline Phosphatase 173 H (35-129) units/L Total Protein 7.1 (6.3-8.2) g/dL Albumin 3.2 L (3.9-5) g/dL Calcium panel 02/16/18 Range/Units 05:59 Calcium 8.2 L (8.4-10.2) mg/dL Albumin 3.2 L (3.9-5) g/dL Pituitary panel 02/16/18 Range/Units 05:59 Sodium 142 (137-145) mmol/L Potassium 3.7 (3.6-5.0) mmol/L Chloride 103.5 (98-107) mmol/L Carbon Dioxide 22 (22-30) mmol/L BUN 4 L (7-17) mg/dL Creatinine 0.4 L (0.7-1.2) mg/dL Glucose 87 (65-100) mg/dL Calcium 8.2 L (8.4-10.2) mg/dL Adrenal panel 02/16/18 Range/Units 05:59 Sodium 142 (137-145) mmol/L Potassium 3.7 (3.6-5.0) mmol/L Chloride 103.5 (98-107) mmol/L Carbon Dioxide 22 (22-30) mmol/L BUN 4 L (7-17) mg/dL Creatinine 0.4 L (0.7-1.2) mg/dL Glucose 87 (65-100) mg/dL Calcium 8.2 L (8.4-10.2) mg/dL Total Bilirubin 0.30 (0.1-1.2) mg/dL AST 35 (5-40) units/L ALT 50 (7-56) units/L Alkaline Phosphatase 173 H (35-129) units/L Total Protein 7.1 (6.3-8.2) g/dL Albumin 3.2 L (3.9-5) g/dL
[2018-02-16] MEDS: HEPARIN/ 0.45% NACL-25,000 UNIT/500 ML 25,000 UNIT/500 ML BAG IV SCH (21:57)
[2018-02-17] MEDS: NORCO 5/325 PO PRN ×3 (00:21→18:12)
[2018-02-17 06:37] LABS: Hemoglobin 8.3 gm/dl (10.1-14.3); Mean Corpuscular HGB Conc 32 % (30-34); Mean Corpuscular Volume 73 fl (79-97); Platelet Count 330 K/mm3 (140-440); Red Blood Count 3.56 M/mm3 (3.65-5.03); Red Cell Distribution Width 19.4 % (13.2-15.2)
[2018-02-17 06:43] LABS: Mean Corpuscular Hemoglobin 23 pg (28-32)
[2018-02-17 06:50] LABS: Alanine Aminotransferase 42 units/L (7-56); BUN/Creatinine Ratio 8; Blood Urea Nitrogen 3 mg/dL (7-17); Calcium 7.9 mg/dL (8.4-10.2); Hemolysis Index 1
[2018-02-17 08:59] LABS: Band Neutrophils # (Manual) 0.1 K/mm3; Hypochromasia 1+; Myelocytes # (Manual) 0.3 K/mm3; Platelet Estimate Consistent w Auto; Stomatocytes 1+; Total Cells Counted 100
--- NOTE | 2018-02-17 09:34 | Hem/Onc Progress Note ---
Assessment and Plan Patient has MRSA and is being treated for that. Patient on heparin for DVT. We will switch her to eliquis Monitor Subjective Date of service: 02/17/18 Interval history: Patient complains of weakness. Denies any active bleeding. Objective - Constitutional Vitals: Last Vital Signs Temp 98.8 F 02/16/18 21:54 Pulse 89 02/16/18 21:54 Resp 18 02/16/18 21:54 BP 141/83 02/16/18 21:54 Pulse Ox 100 02/16/18 17:18 Pain Intensity (0-10): denies any pain General appearance: no acute distress Performance status: 3-limited selfcare - Neck Neck: other (right neck swelling with tenderness) - Respiratory Respiratory: bilateral: CTA - Cardiovascular Rhythm: regular Extremities: No edema - Gastrointestinal General gastrointestinal: Present: soft - Labs Lab Results: Laboratory Results - last 24 hr 02/16/18 02/16/18 02/16/18 05:59 20:26 22:53 WBC RBC Hgb Hct MCV MCH MCHC RDW Plt Count Add Manual Diff Complete Total Counted 100 Seg Neuts % (Manual) 72.0 H Band Neutrophils % 0 Lymphocytes % (Manual) 19.0 Reactive Lymphs % (Man) 0 Monocytes % (Manual) 8.0 H Eosinophils % (Manual) 0 Basophils % (Manual) 1.0 Metamyelocytes % 0 Myelocytes % 0 Promyelocytes % 0 Blast Cells % 0 Nucleated RBC % Not Reportable Seg Neutrophils # Man 7.1 Band Neutrophils # 0.0 Lymphocytes # (Manual) 1.9 Abs React Lymphs (Man) 0.0 Monocytes # (Manual) 0.8 Eosinophils # (Manual) 0.0 Basophils # (Manual) 0.1 Metamyelocytes # 0.0 Myelocytes # 0.0 Promyelocytes # 0.0 Blast Cells # 0.0 WBC Morphology Not Reportable Hypersegmented Neuts Not Reportable Hyposegmented Neuts Not Reportable Hypogranular Neuts Not Reportable Smudge Cells Not Reportable Toxic Granulation Not Reportable Toxic Vacuolation Not Reportable Dohle Bodies Not Reportable Pelger-Huet Anomaly Not Reportable Emilie Rods Not Reportable Platelet Estimate Consistent w auto Clumped Platelets Not Reportable Plt Clumps, EDTA Not Reportable Large Platelets Not Reportable Giant Platelets Not Reportable Platelet Satelliting Not Reportable Plt Morphology Comment Not Reportable RBC Morphology Not Reportable Dimorphic RBCs Not Reportable Polychromasia Not Reportable Hypochromasia Few Poikilocytosis Not Reportable Anisocytosis 1+ Microcytosis Not Reportable Macrocytosis Not Reportable Spherocytes Not Reportable Pappenheimer Bodies Not Reportable Sickle Cells Not Reportable Target Cells Not Reportable Tear Drop Cells Not Reportable Ovalocytes Not Reportable Stomatocytes Helmet Cells Not Reportable [place] Bodies Not Reportable [place] Rings Not Reportable Humza Cells Not Reportable Bite Cells Not Reportable Crenated Cell Not Reportable Elliptocytes Not Reportable Acanthocytes (Spur) Not Reportable Rouleaux Not Reportable Hemoglobin C Crystals Not Reportable Schistocytes Not Reportable Malaria parasites Not Reportable Johnie Bodies Not Reportable Hem Pathologist Commnt No Heparin Anti-Xa Level 0.10 L Sodium Potassium Chloride Carbon Dioxide Anion Gap BUN Creatinine Estimated GFR BUN/Creatinine Ratio Glucose Calcium Total Bilirubin AST ALT Alkaline Phosphatase Total Protein Albumin Albumin/Globulin Ratio Vancomycin Trough 14.9 02/17/18 02/17/18 02/17/18 05:54 05:54 05:54 WBC 9.3 RBC 3.56 L Hgb 8.3 L Hct 26.0 L MCV 73 L MCH 23 L MCHC 32 RDW 19.4 H Plt Count 330 Add Manual Diff Complete Total Counted 100 Seg Neuts % (Manual) 72.0 H Band Neutrophils % 1.0 Lymphocytes % (Manual) 15.0 Reactive Lymphs % (Man) 1.0 Monocytes % (Manual) 3.0 Eosinophils % (Manual) 4.0 Basophils % (Manual) 1.0 Metamyelocytes % 0 Myelocytes % 3.0 Promyelocytes % 0 Blast Cells % 0 Nucleated RBC % Not Reportable Seg Neutrophils # Man 6.7 Band Neutrophils # 0.1 Lymphocytes # (Manual) 1.4 Abs React Lymphs (Man) 0.1 Monocytes # (Manual) 0.3 Eosinophils # (Manual) 0.4 Basophils # (Manual) 0.1 Metamyelocytes # 0.0 Myelocytes # 0.3 Promyelocytes # 0.0 Blast Cells # 0.0 WBC Morphology Not Reportable Hypersegmented Neuts Not Reportable Hyposegmented Neuts Not Reportable Hypogranular Neuts Not Reportable Smudge Cells Not Reportable Toxic Granulation Not Reportable Toxic Vacuolation Not Reportable Dohle Bodies Not Reportable Pelger-Huet Anomaly Not Reportable Eimlie Rods Not Reportable Platelet Estimate Consistent w auto Clumped Platelets Not Reportable Plt Clumps, EDTA Not Reportable Large Platelets Not Reportable Giant Platelets Not Reportable Platelet Satelliting Not Reportable Plt Morphology Comment Not Reportable RBC Morphology Not Reportable Dimorphic RBCs Not Reportable Polychromasia Few Hypochromasia 1+ Poikilocytosis Not Reportable Anisocytosis Not Reportable Microcytosis Not Reportable Macrocytosis Not Reportable Spherocytes Not Reportable Pappenheimer Bodies Not Reportable Sickle Cells Not Reportable Target Cells Not Reportable Tear Drop Cells Not Reportable Ovalocytes Not Reportable Stomatocytes 1+ Helmet Cells Not Reportable [place] Bodies Not Reportable [place] Rings Not Reportable [place] Cells Not Reportable Bite Cells Not Reportable Crenated Cell Not Reportable Elliptocytes Not Reportable Acanthocytes (Spur) Not Reportable Rouleaux Not Reportable Hemoglobin C Crystals Not Reportable Schistocytes Not Reportable Malaria parasites Not Reportable Johnie Bodies Not Reportable Hem Pathologist Commnt No Heparin Anti-Xa Level 0.10 L Sodium 142 Potassium 3.3 L Chloride 102.1 Carbon Dioxide 25 Anion Gap 18 BUN 3 L Creatinine 0.4 L Estimated GFR > 60 BUN/Creatinine Ratio 8 Glucose 90 Calcium 7.9 L Total Bilirubin 0.30 AST 26 ALT 42 Alkaline Phosphatase 154 H Total Protein 6.8 Albumin 3.0 L Albumin/Globulin Ratio 0.8 Vancomycin Trough
[2018-02-17] MEDS: VANCOMYCIN 1,750 MG in NACL 0.9% 500 ML 500 ML IV SCH ×2 (09:56→22:55)
[2018-02-17] MEDS ORDERED: K-DUR PO SCH (10:00)
[2018-02-17] MEDS: ELIQUIS PO SCH ×2 (10:15→22:55)
--- NOTE | 2018-02-17 11:17 | Progress Note ---
Assessment and Plan - Patient Problems (1) Fever Current Visit: Yes Status: Acute Qualifiers: Fever type: unspecified Qualified Code(s): R50.9 - Fever, unspecified Plan to address problem: Pt stable. Catheter culture with Staph. Wound has been closed to steri-strips. Bandage may be removed tomorrow and patient may shower at that time. Please call with any questions. Will follow peripherally. Subjective Date of service: 02/17/18 Patient Reports: Positive: feels better Objective - General physical appearance well developed, well nourished, no distress, no pain, other (looks better) - Neck other (decreased swelling on right side) - Respiratory normal expansion, normal respiratory effort - Integumentary other (bandage in place over right chest) - Labs 02/17/18 05:54 02/17/18 05:54 Diabetes panel 02/17/18 Range/Units 05:54 Sodium 142 (137-145) mmol/L Potassium 3.3 L (3.6-5.0) mmol/L Chloride 102.1 (98-107) mmol/L Carbon Dioxide 25 (22-30) mmol/L BUN 3 L (7-17) mg/dL Creatinine 0.4 L (0.7-1.2) mg/dL Glucose 90 (65-100) mg/dL Calcium 7.9 L (8.4-10.2) mg/dL AST 26 (5-40) units/L ALT 42 (7-56) units/L Alkaline Phosphatase 154 H (35-129) units/L Total Protein 6.8 (6.3-8.2) g/dL Albumin 3.0 L (3.9-5) g/dL Calcium panel 02/17/18 Range/Units 05:54 Calcium 7.9 L (8.4-10.2) mg/dL Albumin 3.0 L (3.9-5) g/dL Pituitary panel 02/17/18 Range/Units 05:54 Sodium 142 (137-145) mmol/L Potassium 3.3 L (3.6-5.0) mmol/L Chloride 102.1 (98-107) mmol/L Carbon Dioxide 25 (22-30) mmol/L BUN 3 L (7-17) mg/dL Creatinine 0.4 L (0.7-1.2) mg/dL Glucose 90 (65-100) mg/dL Calcium 7.9 L (8.4-10.2) mg/dL Adrenal panel 02/17/18 Range/Units 05:54 Sodium 142 (137-145) mmol/L Potassium 3.3 L (3.6-5.0) mmol/L Chloride 102.1 (98-107) mmol/L Carbon Dioxide 25 (22-30) mmol/L BUN 3 L (7-17) mg/dL Creatinine 0.4 L (0.7-1.2) mg/dL Glucose 90 (65-100) mg/dL Calcium 7.9 L (8.4-10.2) mg/dL Total Bilirubin 0.30 (0.1-1.2) mg/dL AST 26 (5-40) units/L ALT 42 (7-56) units/L Alkaline Phosphatase 154 H (35-129) units/L Total Protein 6.8 (6.3-8.2) g/dL Albumin 3.0 L (3.9-5) g/dL
[2018-02-17] MEDS: KCL 10MEQ/100ML 10 MEQ/100 ML BAG IV SCH (12:36)
--- NOTE | 2018-02-17 14:25 | Progress Note ---
Assessment and Plan Assessment and plan: Acute Sepsis Syndrome with MRSA Bacteremia from infection port site -Continue IV vancomycin. -ID following. Acute DVT Right IJ /Subclavian -Continue Eliquis Anemia of chronic disease. -H&H stable. Hypokalemia -On repletion, will monitor level. h/o Colon cancer -for outpatient follow-up. Disposition: Discharge patient when medically stable and cleared by ID. History Interval history: Patient is a 52-year-old female admitted for sepsis she has no new complaints. Hospitalist Physical - Constitutional Vitals: Temp Pulse Resp BP Pulse Ox 99.7 F H 100 H 24 131/91 96 02/17/18 08:20 02/17/18 08:20 02/17/18 08:20 02/17/18 08:20 02/17/18 08:20 General appearance: Present: no acute distress, well-nourished - EENT Eyes: Present: PERRL, EOM intact ENT: hearing intact - Neck Neck: Present: supple - Respiratory Respiratory effort: normal Respiratory: bilateral: CTA - Cardiovascular Rhythm: regular Heart Sounds: Present: S1 & S2 - Extremities Extremities: No edema - Abdominal General gastrointestinal: soft, non-tender, normal bowel sounds - Neurologic Neurologic: CNII-XII intact Results - Labs CBC & Chem 7: 02/17/18 05:54 02/17/18 05:54 Labs: Laboratory Last Values WBC 9.3 K/mm3 (4.5-11.0) 02/17/18 05:54 RBC 3.56 M/mm3 (3.65-5.03) L 02/17/18 05:54 Hgb 8.3 gm/dl (10.1-14.3) L 02/17/18 05:54 Hct 26.0 % (30.3-42.9) L 02/17/18 05:54 MCV 73 fl (79-97) L 02/17/18 05:54 MCH 23 pg (28-32) L 02/17/18 05:54 MCHC 32 % (30-34) 02/17/18 05:54 RDW 19.4 % (13.2-15.2) H 02/17/18 05:54 Plt Count 330 K/mm3 (140-440) 02/17/18 05:54 Lymph % (Auto) 17.8 % (13.4-35.0) 02/14/18 11:03 [place] % (Auto) 7.0 % (0.0-7.3) 02/16/18 05:59 Eos % (Auto) 2.3 % (0.0-4.3) 02/16/18 05:59 Baso % (Auto) 0.3 % (0.0-1.8) 02/14/18 11:03 Lymph # 1.6 K/mm3 (1.2-5.4) 02/14/18 11:03 [place] # 0.7 K/mm3 (0.0-0.8) 02/16/18 05:59 Eos # 0.2 K/mm3 (0.0-0.4) 02/16/18 05:59 Baso # 0.0 K/mm3 (0.0-0.1) 02/16/18 05:59 Add Manual Diff Complete 02/17/18 05:54 Total Counted 100 02/17/18 05:54 Seg Neutrophils % 70.0 % (40.0-70.0) 02/16/18 05:59 Seg Neuts % (Manual) 72.0 % (40.0-70.0) H 02/17/18 05:54 Band Neutrophils % 1.0 % 02/17/18 05:54 Lymphocytes % (Manual) 15.0 % (13.4-35.0) 02/17/18 05:54 Reactive Lymphs % (Man) 1.0 % 02/17/18 05:54 Monocytes % (Manual) 3.0 % (0.0-7.3) 02/17/18 05:54 Eosinophils % (Manual) 4.0 % (0.0-4.3) 02/17/18 05:54 Basophils % (Manual) 1.0 % (0.0-1.8) 02/17/18 05:54 Metamyelocytes % 0 % 02/17/18 05:54 Myelocytes % 3.0 % 02/17/18 05:54 Promyelocytes % 0 % 02/17/18 05:54 Blast Cells % 0 % 02/17/18 05:54 Nucleated RBC % Not Reportable 02/17/18 05:54 Seg Neutrophils # 7.3 K/mm3 (1.8-7.7) 02/16/18 05:59 Seg Neutrophils # Man 6.7 K/mm3 (1.8-7.7) 02/17/18 05:54 Band Neutrophils # 0.1 K/mm3 02/17/18 05:54 Lymphocytes # (Manual) 1.4 K/mm3 (1.2-5.4) 02/17/18 05:54 Abs React Lymphs (Man) 0.1 K/mm3 02/17/18 05:54 Monocytes # (Manual) 0.3 K/mm3 (0.0-0.8) 02/17/18 05:54 Eosinophils # (Manual) 0.4 K/mm3 (0.0-0.4) 02/17/18 05:54 Basophils # (Manual) 0.1 K/mm3 (0.0-0.1) 02/17/18 05:54 Metamyelocytes # 0.0 K/mm3 02/17/18 05:54 Myelocytes # 0.3 K/mm3 02/17/18 05:54 Promyelocytes # 0.0 K/mm3 02/17/18 05:54 Blast Cells # 0.0 K/mm3 02/17/18 05:54 WBC Morphology Not Reportable 02/17/18 05:54 Hypersegmented Neuts Not Reportable 02/17/18 05:54 Hyposegmented Neuts Not Reportable 02/17/18 05:54 Hypogranular Neuts Not Reportable 02/17/18 05:54 Smudge Cells Not Reportable 02/17/18 05:54 Toxic Granulation Not Reportable 02/17/18 05:54 Toxic Vacuolation Not Reportable 02/17/18 05:54 Dohle Bodies Not Reportable 02/17/18 05:54 Pelger-Huet Anomaly Not Reportable 02/17/18 05:54 Emilie Rods Not Reportable 02/17/18 05:54 Platelet Estimate Consistent w auto 02/17/18 05:54 Clumped Platelets Not Reportable 02/17/18 05:54 Plt Clumps, EDTA Not Reportable 02/17/18 05:54 Large Platelets Not Reportable 02/17/18 05:54 Giant Platelets Not Reportable 02/17/18 05:54 Platelet Satelliting Not Reportable 02/17/18 05:54 Plt Morphology Comment Not Reportable 02/17/18 05:54 RBC Morphology Not Reportable 02/17/18 05:54 Dimorphic RBCs Not Reportable 02/17/18 05:54 Polychromasia Few 02/17/18 05:54 Hypochromasia 1+ 02/17/18 05:54 Poikilocytosis Not Reportable 02/17/18 05:54 Anisocytosis Not Reportable 02/17/18 05:54 Microcytosis Not Reportable 02/17/18 05:54 Macrocytosis Not Reportable 02/17/18 05:54 Spherocytes Not Reportable 02/17/18 05:54 Pappenheimer Bodies Not Reportable 02/17/18 05:54 Sickle Cells Not Reportable 02/17/18 05:54 Target Cells Not Reportable 02/17/18 05:54 Tear Drop Cells Not Reportable 02/17/18 05:54 Ovalocytes Not Reportable 02/17/18 05:54 Stomatocytes 1+ 02/17/18 05:54 Helmet Cells Not Reportable 02/17/18 05:54 [place] Bodies Not Reportable 02/17/18 05:54 [place] Rings Not Reportable 02/17/18 05:54 Humphrey Cells Not Reportable 02/17/18 05:54 Bite Cells Not Reportable 02/17/18 05:54 Crenated Cell Not Reportable 02/17/18 05:54 Elliptocytes Not Reportable 02/17/18 05:54 Acanthocytes (Spur) Not Reportable 02/17/18 05:54 Rouleaux Not Reportable 02/17/18 05:54 Hemoglobin C Crystals Not Reportable 02/17/18 05:54 Schistocytes Not Reportable 02/17/18 05:54 Malaria parasites Not Reportable 02/17/18 05:54 Percent Retic 1.39 % (0.78-2.58) 02/14/18 11:03 Johnie Bodies Not Reportable 02/17/18 05:54 Hem Pathologist Commnt No 02/17/18 05:54 PT 14.6 Sec. (12.2-14.9) 02/12/18 14:07 INR 1.08 (0.87-1.13) 02/12/18 14:07 APTT 36.4 Sec. (24.2-36.6) 02/12/18 14:07 Heparin Anti-Xa Level 0.10 U.I./ml (0.3-0.7) L 02/17/18 05:54 Sodium 142 mmol/L (137-145) 02/17/18 05:54 Potassium 3.3 mmol/L (3.6-5.0) L 02/17/18 05:54 Chloride 102.1 mmol/L (98-107) 02/17/18 05:54 Carbon Dioxide 25 mmol/L (22-30) 02/17/18 05:54 Anion Gap 18 mmol/L 02/17/18 05:54 BUN 3 mg/dL (7-17) L 02/17/18 05:54 Creatinine 0.4 mg/dL (0.7-1.2) L 02/17/18 05:54 Estimated GFR > 60 ml/min 02/17/18 05:54 BUN/Creatinine Ratio 8 % 02/17/18 05:54 Glucose 90 mg/dL (65-100) 02/17/18 05:54 Lactic Acid 1.10 mmol/L (0.7-2.0) 02/11/18 17:17 Calcium 7.9 mg/dL (8.4-10.2) L 02/17/18 05:54 Magnesium 1.70 mg/dL (1.7-2.3) 02/17/18 10:22 Iron 17 ug/dL (37-170) L 02/14/18 11:03 TIBC 257 mcg/dL (250-450) 02/14/18 11:03 % Saturation 6.61 % 02/14/18 11:03 Transferrin 218 mg/dl (192-382) 02/14/18 11:03 Ferritin 60.7 ng/mL (13.0-400.0) 02/14/18 11:03 Total Bilirubin 0.30 mg/dL (0.1-1.2) 02/17/18 05:54 AST 26 units/L (5-40) 02/17/18 05:54 ALT 42 units/L (7-56) 02/17/18 05:54 Alkaline Phosphatase 154 units/L (35-129) H 02/17/18 05:54 C-Reactive Protein 13.80 mg/dL (0.00-1.30) H 02/12/18 17:32 Total Protein 6.8 g/dL (6.3-8.2) 02/17/18 05:54 Albumin 3.0 g/dL (3.9-5) L 02/17/18 05:54 Albumin/Globulin Ratio 0.8 % 02/17/18 05:54 Vitamin B12 478.4 pg/mL (211-911) 02/14/18 11:03 Folate 8.36 ng/mL (7.3-26.0) 02/14/18 11:03 Urine Color Yellow (Yellow) 02/12/18 09:01 Urine Turbidity Clear (Clear) 02/12/18 09:01 Urine pH 6.0 (5.0-7.0) 02/12/18 09:01 Ur Specific [place] 1.019 (1.003-1.030) 02/12/18 09:01 Urine Protein 30 mg/dl mg/dL (Negative) 02/12/18 09:01 Urine Glucose (UA) Neg mg/dL (Negative) 02/12/18 09:01 Urine Ketones Tr mg/dL (Negative) 02/12/18 09:01 Urine Blood Sm (Negative) 02/12/18 09:01 Urine Nitrite Neg (Negative) 02/12/18 09:01 Urine Bilirubin Neg (Negative) 02/12/18 09:01 Urine Urobilinogen < 2.0 mg/dL (<2.0) 02/12/18 09:01 Ur Leukocyte Esterase Neg (Negative) 02/12/18 09:01 Urine WBC (Auto) 1.0 /HPF (0.0-6.0) 02/12/18 09:01 Urine RBC (Auto) 1.0 /HPF (0.0-6.0) 02/12/18 09:01 U Epithel Cells (Auto) 4.0 /HPF (0-13.0) 02/12/18 09:01 Urine Mucus Few /HPF 02/12/18 09:01 Vancomycin Trough 14.9 ug/mL (5.0-20.0) 02/16/18 20:26 Blood Type B POSITIVE 02/14/18 11:03 Antibody Screen Negative 02/14/18 11:03 Crossmatch See Detail 02/14/18 11:03
[2018-02-17] MEDS: K-DUR PO SCH (22:55)
[2018-02-18] MEDS: NORCO 5/325 PO PRN ×2 (01:29→16:53)
[2018-02-18 06:21] LABS: Hematocrit 26.4 % (30.3-42.9); Hemoglobin 8.4 gm/dl (10.1-14.3)
[2018-02-18 06:55] LABS: BUN/Creatinine Ratio 10; Blood Urea Nitrogen 5 mg/dL (7-17); Calcium 7.9 mg/dL (8.4-10.2); Hemolysis Index 4
--- NOTE | 2018-02-18 07:34 | Progress Note ---
Assessment and Plan Acute Sepsis Syndrome with Bacteremia - from infection port site - improving Acute DVT Right IJ /Subclavian Anemia of chronic disease. Septic thrombophlebitis Hypokalemia - corrected h/o Colon cancer Right neck swelling and pain - improved Obese Tachycardia Full code status Plan Continue with Cefazolin and Vanc per ID x 6 weeks per ID Heparin drip per protocol bleeding precautions at all times Cx report positive for Staph aurues 2D Echo 50-55% EF. No vegetation contact precautions EKG, TSH for tachycardia inputs and recs of the specialists appreciated. d/c planning in 1-2 for home iv anatibiotic x total of 6 weeks per ID rec Subjective Date of service: 02/18/18 Principal diagnosis: Sepsis, anmeia of chronic disease Interval history: Pt seen and examined. No new complaint. Reviewed laboratory and radiological data. No fever Objective - Constitutional Vitals: Vital Signs - 12hr 02/17/18 02/18/18 21:00 01:26 Temperature 98.7 F Pulse Rate 102 H Respiratory 16 20 Rate Blood Pressure 133/85 [Right] O2 Sat by Pulse 97 Oximetry General appearance: Present: no acute distress, well-nourished - EENT Eyes: PERRL, EOM intact Ears: bilateral: normal - Neck Neck: supple, normal ROM - Respiratory Respiratory: bilateral: CTA - Cardiovascular Rhythm: regular Heart Sounds: Present: S1 & S2. Absent: gallop, rub Extremities: pulses intact, No edema, normal color, Full ROM - Gastrointestinal General gastrointestinal: Present: soft, non-tender, non-distended, normal bowel sounds Rectal Exam: nodular - Integumentary Integumentary: clear, warm, dry - Musculoskeletal Musculoskeletal: 1, strength equal bilaterally - Neurologic Neurologic: moves all extremities - Psychiatric Psychiatric: memory intact, appropriate mood/affect, intact judgment & insight - Labs CBC & Chem 7: 02/18/18 05:38 02/18/18 05:38 Labs: Abnormal lab results 02/17/18 02/17/18 02/18/18 Range/Units 05:54 13:18 05:38 Hgb 8.4 L (10.1-14.3) gm/dl Hct 26.4 L (30.3-42.9) % Seg Neuts % (Manual) 72.0 H (40.0-70.0) % Heparin Anti-Xa Level > 2.00 H (0.3-0.7) U.I./ml BUN (7-17) mg/dL Creatinine (0.7-1.2) mg/dL Calcium (8.4-10.2) mg/dL 02/18/18 Range/Units 05:38 Hgb (10.1-14.3) gm/dl Hct (30.3-42.9) % Seg Neuts % (Manual) (40.0-70.0) % Heparin Anti-Xa Level (0.3-0.7) U.I./ml BUN 5 L (7-17) mg/dL Creatinine 0.5 L (0.7-1.2) mg/dL Calcium 7.9 L (8.4-10.2) mg/dL
--- NOTE | 2018-02-18 09:34 | Hem/Onc Progress Note ---
Assessment and Plan Continue eliquis. Continue anti-biotics. Possible discharge today on IV antibiotics Subjective Date of service: 02/18/18 Interval history: Patient better. Denies any active bleeding. Off heparin now. On eliquis Objective - Constitutional Vitals: Last Vital Signs Temp 99.0 F 02/18/18 08:19 Pulse 92 H 02/18/18 08:19 Resp 16 02/18/18 08:19 BP 152/101 02/18/18 08:19 Pulse Ox 97 02/18/18 01:26 Pain Intensity (0-10): denies any pain General appearance: no acute distress Performance status: 2- selfcare, ambulatory - Neck Neck: supple, other (right neck swelling better) - Respiratory Respiratory effort: Positive: normal Respiratory: bilateral: CTA - Cardiovascular Rhythm: regular - Gastrointestinal General gastrointestinal: Present: soft - Labs Lab Results: Laboratory Results - last 24 hr 02/17/18 02/17/18 02/18/18 10:22 13:18 05:38 Hgb 8.4 L Hct 26.4 L Plt Count 364 Heparin Anti-Xa Level > 2.00 H Sodium Potassium Chloride Carbon Dioxide Anion Gap BUN Creatinine Estimated GFR BUN/Creatinine Ratio Glucose Calcium Magnesium 1.70 02/18/18 05:38 Hgb Hct Plt Count Heparin Anti-Xa Level Sodium 144 Potassium 3.8 Chloride 104.7 Carbon Dioxide 24 Anion Gap 19 BUN 5 L Creatinine 0.5 L Estimated GFR > 60 BUN/Creatinine Ratio 10 Glucose 93 Calcium 7.9 L Magnesium
[2018-02-18] MEDS: ELIQUIS PO SCH ×2 (10:57→22:17)
[2018-02-18] MEDS: K-DUR PO SCH ×2 (10:57→22:18)
[2018-02-18] MEDS: VANCOMYCIN 1,750 MG in NACL 0.9% 500 ML 500 ML IV SCH ×2 (11:10→22:17)
--- NOTE | 2018-02-18 14:36 | Progress Note ---
Assessment and Plan Assessment: 1) Sepsis: resolved. Etiology most likely bacteremia 2) MRSA bacteremia: likely from infected port a cath with right IJ thrombus -Port placed on 01/31/18 -Blood cx 02/11 positive 2 of 4 bottles -Blood cx 02/12 pending -TTE no vegetations -Port removed 02/12 -CRP=13 3) Presumed right IJ septic thrombophlebitis: on heparin -Doppler showed right IJ DVT -CT neck Right IJ cath undulating course, presumed right IJ and SC vein thrombus and right sternomastoid muscle with a small abscess 4) Colon cancer stage II s/p colectomy 5) Anemia Plan: -continue vancomcyin -upon discharge will do vancomycin 1,250 mg IV q 12 hours for 6 weeks until in view of septic thrombophlebitis and MRSA septicemia. -place PICC line today -anticoagulation management per IM or PCP -ID clinic f/u on 02/27. pt to call office for apt Thank you for your consultation, will follow up with you. Michelle Fitch MD Infectious Diseases Specialist [facility] ([facility]) M [phone] O [phone] Subjective Date of service: 02/18/18 Principal diagnosis: Sepsis, anmeia of chronic disease Interval history: Feels better, Still c/o right neck pain but less. No fever. Microbiology: Blood cultures: 02/11 MRSA 2 of 4 bottles 02/12 neg Urine cultures: Current Antimicrobials: Vancomycin 02/12 Previous Antimicrobials: Zosyn 02/12 Objective - Exam Narrative Exam: General appearance: Alert in NAD, conversant Eyes: anicteric sclerae, moist conjunctivae; no lid-lag; PERRLA HENT: Atraumatic; oropharynx clear. Neck: +decreased tendeness and swelling right neck and SC area Lungs: CTA, with normal respiratory effort and no intercostal retractions CV: tachy Abdomen: Soft, non-tender; +midline surg scar well healed Extremities: No peripheral edema or extremity lymphadenopathy Skin: Normal temperature, turgor and texture; no rash, ulcers or subcutaneous nodules Psych: Appropriate affect, alert and oriented to person, place and time. Neuro: alert and oriented x 3. Moving all extermities Lines: - Constitutional Vitals: Vital Signs Temp Pulse Resp BP Pulse Ox 98.7 F 94 H 20 137/90 97 02/18/18 12:48 02/18/18 12:48 02/18/18 12:48 02/18/18 12:48 02/18/18 01:26 Temperature -Last 24 Hours Temperature 98.7 F Temperature 99.0 F Temperature 98.7 F Temperature 99.4 F - Labs CBC & Chem 7: 02/18/18 05:38 02/18/18 05:38 Labs: Abnormal lab results 02/18/18 02/18/18 Range/Units 05:38 05:38 Hgb 8.4 L (10.1-14.3) gm/dl Hct 26.4 L (30.3-42.9) % BUN 5 L (7-17) mg/dL Creatinine 0.5 L (0.7-1.2) mg/dL Calcium 7.9 L (8.4-10.2) mg/dL
[2018-02-19] MEDS: NORCO 5/325 PO PRN ×2 (04:45→13:25)
[2018-02-19 06:39] LABS: Hematocrit 25.9 % (30.3-42.9); Mean Corpuscular HGB Conc 31 % (30-34); Mean Corpuscular Volume 75 fl (79-97); Platelet Count 381 K/mm3 (140-440); Red Blood Count 3.48 M/mm3 (3.65-5.03)
[2018-02-19 06:46] LABS: Mean Corpuscular Hemoglobin 23 pg (28-32)
[2018-02-19 07:01] LABS: Alanine Aminotransferase 30 units/L (7-56); Albumin 3.1 g/dL (3.9-5); BUN/Creatinine Ratio 10; Blood Urea Nitrogen 5 mg/dL (7-17); Calcium 8.1 mg/dL (8.4-10.2); Hemolysis Index 0
[2018-02-19 07:48] LABS: Anisocytosis 1+; Band Neutrophils # (Manual) 0.3 K/mm3; Basophils % (Manual) 0 % (0.0-1.8); Hypochromasia 2+; Ovalocytes 1+; Poikilocytosis 1+; Spherocytes Few; Total Cells Counted 100
--- NOTE | 2018-02-19 08:25 | Discharge Summary ---
Providers - Providers Date of Admission: 02/11/18 22:38 Date of discharge: 02/19/18 Attending physician: BRITTANY DE LA ROSA 02/11/18 21:16 Consult to Physician [CONS] Urgent Comment: Consulting Provider: MANINDER HERNANDEZ Physician Instructions: Reason For Exam: Right neck swelling s/p port placement 02/12/18 09:19 Consult to Physician [CONS] Urgent Comment: [facility] Consulting Provider: LATISHA DAILEY Physician Instructions: CALLED DR DAILEY [phone] Reason For Exam: sepsis 02/13/18 17:10 Consult to Case Management [CONS] Stat Services Needed at Discharge: Other Notified:: manager corporate communications Additional Physician Instructions: [facility] ([facility]) Michelle Dailey MD M [phone] O [phone] F [phone] OUTPATIENT PARENTERAL ANTIBIOTIC THERAPY ORDERS Diagnoses: septic thrombophlebitis and MRSA septicemia. Antimicrobial administration: vancomycin 1,250 mg IV q 12 hours for 6 weeks until 03/25/18. Remove PICC line after last dose unless otherwise instructed. Lines: PICC Lab monitoring: CBC, CMP, CRP and vancomycin trough once a week preferly on Saturday morning. Please fax results to [phone] and call [phone] for critical lab results. Michelle Dailey Date: 02/13/18 02/18/18 10:43 PICC Line Insertion [Consult to PICC Line RN] [CONS] Urgent Reason For Exam: home antibiotic Type Line:: PICC 02/18/18 12:45 Consult to Interventional Radiology [CONS] Urgent Consulting Provider: REMI VELASQUEZ Reason For Exam: Tunneled PICC Place consult to:: IR Notified:: Adrianne Carlisle [employer]ICE [employer] Phone number called:: [phone] Was contact made?: Yes If yes, spoke with:: Adrianne Carlisle Time called:: 12:45 02/18/18 14:36 Consult to PICC Line RN [CONS] Stat Reason For Exam: IV antibiotics Type Line:: PICC Primary care physician: JET WORKER Hospitalization Reason for admission: sepsis from infected port iste Condition: Stable Pertinent studies: venous doppler right IJ that showed DVT Procedures: removal of Port - right chest wall Hospital course: Patient is a 52-year-old lady who was diagnosed with colon cancer status post resection and had a port placed on 01/31/2018 for chemotherapy. There have chills with penicillin on the port site which is under right chest wall. Give clindamycin Department. Abscess diagnosed. Patient admitted. Commenced IV antibiotics. Surgical consult was done. Port removed. Coumadin IV antibiotics. Ultrasound of the right upper extremity, found DVT of the right internal jugular vein. Patient was commenced on anticoagulation with advice. ID consult was obtained on admission. Echocardiogram of the heart showed no evidence of intramural thrombus. Blood cultures done on 02/11 was positive in 2 bottles for MRSA. He was placed on vancomycin fever resolved. PICC line placed on the right IJ for home IV antibiotics per ID recommendation of having IV antibiotics for 6 weeks now to end on 03/25/2018 because of septic phlebitis and MRSA septicemia. Patient will be discharged today to follow up with primary care physician and ID specialist as well as oncologist and Dr. Pina who was on consult during this admission. Disposition: - TO HOME OR SELFCARE Time spent for discharge: 53 min Core Measure Documentation - Palliative Care Palliative Care/ Comfort Measures: Not Applicable - Core Measures Any of the following diagnoses?: none Exam - Constitutional Vitals: Temp Pulse Resp BP Pulse Ox 99.1 F 96 H 20 143/90 97 02/19/18 01:16 02/18/18 16:06 02/19/18 01:16 02/19/18 01:16 02/18/18 09:00 General appearance: Present: no acute distress, well-nourished - EENT Eyes: Present: PERRL ENT: hearing intact, clear oral mucosa - Neck Neck: Present: supple, normal ROM - Respiratory Respiratory effort: normal Respiratory: bilateral: CTA - Cardiovascular Heart Sounds: Present: S1 & S2. Absent: rub, click - Extremities Extremities: pulses symmetrical, No edema Peripheral Pulses: within normal limits - Abdominal General gastrointestinal: Present: soft, non-tender, non-distended, normal bowel sounds - Integumentary Integumentary: Present: clear, warm, dry - Musculoskeletal Musculoskeletal: gait normal, strength equal bilaterally - Psychiatric Psychiatric: appropriate mood/affect, intact judgment & insight - Neurologic Neurologic: CNII-XII intact, moves all extremities Plan Activity: advance as tolerated Weight Bearing Status: Weight Bear as Tolerated Diet: regular Follow up with: PRIMARY CARE, [Primary Care Provider] - 7 Days Prescriptions: Apixaban [Eliquis] 5 mg PO Q12HR #60 tablet HYDROcodone/APAP 5-325 [[place] 5-325 mg TAB] 1 each PO Q6HR PRN #10 tablet PRN Reason: Pain
[2018-02-19 08:52] VITALS: BP 138/77
--- NOTE | 2018-02-19 09:14 | Progress Note ---
Assessment and Plan Assessment: 1) Sepsis: resolved. Etiology most likely bacteremia 2) MRSA bacteremia: likely from infected port a cath with right IJ thrombus -Port placed on 01/31/18 -Blood cx 02/11 positive 2 of 4 bottles -Blood cx 02/12 pending -TTE no vegetations -Port removed 02/12 -CRP=13 3) Presumed right IJ septic thrombophlebitis: on heparin -Doppler showed right IJ DVT -CT neck Right IJ cath undulating course, presumed right IJ and SC vein thrombus and right sternomastoid muscle with a small abscess 4) Colon cancer stage II s/p colectomy 5) Anemia Plan: -continue vancomcyin -upon discharge will do vancomycin 1,250 mg IV q 12 hours for 6 weeks until in view of septic thrombophlebitis and MRSA septicemia. -place PICC line - pending -anticoagulation management per IM or PCP -ID clinic f/u on 02/27. pt to call office for apt I am signing off Thank you for your consultation, will follow up with you. Michelle Carter MD Infectious Diseases Specialist [facility] ([facility]) M [phone] O [phone] Subjective Date of service: 02/19/18 Principal diagnosis: Sepsis, anmeia of chronic disease Interval history: Feels better, Still c/o right neck pain 02/25. No fever. Microbiology: Blood cultures: 02/11 MRSA 2 of 4 bottles 02/12 neg Urine cultures: Current Antimicrobials: Vancomycin 02/12 Previous Antimicrobials: Zosyn 02/12 Objective - Exam Narrative Exam: General appearance: Alert in NAD, conversant Eyes: anicteric sclerae, moist conjunctivae; no lid-lag; PERRLA HENT: Atraumatic; oropharynx clear. Neck: +decreased tendeness and swelling right neck and SC area still induration Lungs: CTA, with normal respiratory effort and no intercostal retractions CV: tachy Abdomen: Soft, non-tender; +midline surg scar well healed Extremities: No peripheral edema or extremity lymphadenopathy Skin: Normal temperature, turgor and texture; no rash, ulcers or subcutaneous nodules Psych: Appropriate affect, alert and oriented to person, place and time. Neuro: alert and oriented x 3. Moving all extermities Lines: - Constitutional Vitals: Vital Signs Temp Pulse Resp BP Pulse Ox 98.4 F 81 20 138/77 96 02/19/18 07:56 02/19/18 07:56 02/19/18 07:56 02/19/18 07:56 02/19/18 07:56 Temperature -Last 24 Hours Temperature 98.4 F Temperature 99.1 F Temperature 99.4 F Temperature 98.7 F - Labs CBC & Chem 7: 02/19/18 06:04 02/19/18 06:04 Labs: Abnormal lab results 02/19/18 02/19/18 Range/Units 06:04 06:04 RBC 3.48 L (3.65-5.03) M/mm3 Hgb 8.0 L (10.1-14.3) gm/dl Hct 25.9 L (30.3-42.9) % MCV 75 L (79-97) fl MCH 23 L (28-32) pg RDW 20.0 H (13.2-15.2) % Seg Neuts % (Manual) 77.0 H (40.0-70.0) % Lymphocytes % (Manual) 13.0 L (13.4-35.0) % BUN 5 L (7-17) mg/dL Creatinine 0.5 L (0.7-1.2) mg/dL Calcium 8.1 L (8.4-10.2) mg/dL Alkaline Phosphatase 131 H (35-129) units/L Albumin 3.1 L (3.9-5) g/dL
--- NOTE | 2018-02-19 09:35 | Hem/Onc Progress Note ---
Assessment and Plan Continue eliquis. Continue anti-biotics. Possible discharge today on IV antibiotics after picc Subjective Date of service: 02/19/18 Interval history: Patient better. Denies any active bleeding. Off heparin now. On eliquis feels fair.for picc Objective - Constitutional Vitals: Last Vital Signs Temp 98.4 F 02/19/18 07:56 Pulse 81 02/19/18 07:56 Resp 20 02/19/18 07:56 BP 138/77 02/19/18 07:56 Pulse Ox 96 02/19/18 07:56 - Neck Neck: supple - Respiratory Respiratory effort: Positive: normal Respiratory: bilateral: CTA - Cardiovascular Rhythm: regular Extremities: No edema - Gastrointestinal General gastrointestinal: Present: soft - Labs Lab Results: Laboratory Results - last 24 hr 02/19/18 02/19/18 06:04 06:04 WBC 9.1 RBC 3.48 L Hgb 8.0 L Hct 25.9 L MCV 75 L MCH 23 L MCHC 31 RDW 20.0 H Plt Count 381 Add Manual Diff Complete Total Counted 100 Seg Neuts % (Manual) 77.0 H Band Neutrophils % 3.0 Lymphocytes % (Manual) 13.0 L Reactive Lymphs % (Man) 0 Monocytes % (Manual) 2.0 Eosinophils % (Manual) 2.0 Basophils % (Manual) 0 Metamyelocytes % 3.0 Myelocytes % 0 Promyelocytes % 0 Blast Cells % 0 Nucleated RBC % Not Reportable Seg Neutrophils # Man 7.0 Band Neutrophils # 0.3 Lymphocytes # (Manual) 1.2 Abs React Lymphs (Man) 0.0 Monocytes # (Manual) 0.2 Eosinophils # (Manual) 0.2 Basophils # (Manual) 0.0 Metamyelocytes # 0.3 Myelocytes # 0.0 Promyelocytes # 0.0 Blast Cells # 0.0 WBC Morphology Not Reportable Hypersegmented Neuts Not Reportable Hyposegmented Neuts Not Reportable Hypogranular Neuts Not Reportable Smudge Cells Not Reportable Toxic Granulation Not Reportable Toxic Vacuolation Not Reportable Dohle Bodies Not Reportable Pelger-Huet Anomaly Not Reportable Emilie Rods Not Reportable Platelet Estimate Appears normal Clumped Platelets Not Reportable Plt Clumps, EDTA Not Reportable Large Platelets Not Reportable Giant Platelets Not Reportable Platelet Satelliting Not Reportable Plt Morphology Comment Not Reportable RBC Morphology Not Reportable Dimorphic RBCs Not Reportable Polychromasia 1+ Hypochromasia 2+ Poikilocytosis 1+ Anisocytosis 1+ Microcytosis Few Macrocytosis Not Reportable Spherocytes Few Pappenheimer Bodies Not Reportable Sickle Cells Not Reportable Target Cells Not Reportable Tear Drop Cells Not Reportable Ovalocytes 1+ Helmet Cells Not Reportable [place] Bodies Not Reportable [place] Rings Not Reportable Humza Cells Not Reportable Bite Cells Not Reportable Crenated Cell Not Reportable Elliptocytes Not Reportable Acanthocytes (Spur) Not Reportable Rouleaux Not Reportable Hemoglobin C Crystals Not Reportable Schistocytes Not Reportable Malaria parasites Not Reportable Johnie Bodies Not Reportable Hem Pathologist Commnt No Sodium 141 Potassium 3.9 Chloride 103.3 Carbon Dioxide 24 Anion Gap 18 BUN 5 L Creatinine 0.5 L Estimated GFR > 60 BUN/Creatinine Ratio 10 Glucose 98 Calcium 8.1 L Total Bilirubin 0.30 AST 17 ALT 30 Alkaline Phosphatase 131 H Total Protein 7.1 Albumin 3.1 L Albumin/Globulin Ratio 0.8
[2018-02-19] MEDS ORDERED: HEPARIN/NS 5000 UNIT/500ML(CATH LAB) 500 ML IR ONE (09:57)
[2018-02-19] MEDS: VANCOMYCIN 1,750 MG in NACL 0.9% 500 ML 500 ML IV SCH (10:00)
[2018-02-19] MEDS: K-DUR PO SCH (10:00)
[2018-02-19] MEDS: ELIQUIS PO SCH (10:00)
[2018-02-19] MEDS ORDERED: NACL 0.9% 250ML 250 ML ONE (10:17)
[2018-02-19] MEDS ORDERED: VERSED ONE (10:25)
[2018-02-19] MEDS ORDERED: HEPARIN 10,000 UNITS/10 ML ONE (10:25)
[2018-02-19] MEDS: SUBLIMAZE ONE ×2 (10:43→10:50)
[2018-02-19] MEDS: XYLOCAINE 2% INFILTRATI ONE ×2 (10:44→10:51)
--- NOTE | 2018-02-19 11:11 | Operative Report ---
Operative Report Operative Report: EXAM: ULTRASOUND AND FLUOROSCOPIC GUIDED PLACEMENT OF TUNNELED PICC LINE CLINICAL INDICATION: PATIENT WITH BACTEREMIA, CENTRAL VENOUS CATHETER NEEDED FOR LONG-TERM IV ANTIBIOTICS DATE: 02/19/2018 PROCEDURE: Following an explanation of the risks, benefits and alternatives; written informed consent was obtained. The patient was brought to the injury Week placed in supine position on the examination. Initial evaluation of the left neck and was treated a patent left internal catering. The patient's left neck and chest wall were prepped and draped in the usual sterile fashion. 1% lidocaine was used for anesthesia. Under ultrasound guidance, the left internal jugular vein was cannulated with a 7 cm 21-gauge needle. A 0.018 guidewire was advanced centrally under fluoroscopy. The guidewire was advanced into the IVC to document intravenous position. An appropriate catheter exit site was chosen along the anterior left chest wall. 1% lidocaine was used for anesthesia at the catheter exit site and along the tunnel tract. A Bard dual-lumen tunnel PICC line was then tunneled antegrade from the catheter exit site being on any site. Following dilation, a 5.5 Welsh peel-away sheath was placed over the guidewire under fluoroscopy and advanced centrally. Following standard guidewire measurements, the guidewire was removed and this access temporarily capped. The catheter was cut to length and inserted to the peel-away sheath. The peel- away sheath was removed. The catheter tip was positioned in the proximal right atrium. Both ports flushed and aspirated easily and were then locked with sterile saline. The venotomy was closed using 3-0 Vicryl suture. 3-0 Ethilon suture was used at the catheter exit site to approximate the exit site as well as secure the catheter. Upon was then applied to both sites. Sterile dressings were then applied. The patient tolerated the procedure well. There were no immediate post procedure complications. Conscious sedation was performed in the guidance of radiologic nursing. Continuous cardiopulmonary monitoring was utilized. IMPRESSION: Ultrasound and fluoroscopic placement of tunneled PICC line via the left internal jugular vein
--- NOTE | 2018-02-19 17:14 | Vascular Lab Report ---
RIGHT UPPER EXTREMITY VENOUS DUPLEX: REASON FOR EXAM: Right neck swelling COMMENTS ON THE RIGHT: Acute deep venous thrombosis is seen in the internal jugular vein. The remaining veins visualized are freely compressible without evidence of internal echogenicity. Spontaneous and phasic flow is present proximally. COMMENTS ON THE LEFT: A limited study of the jugular and subclavian veins shows no evidence of thrombus. IMPRESSION: Acute deep venous thrombosis of the right internal jugular vein.
[2018-02-24] MEDS ORDERED: ELIQUIS PO SCH (10:00)
== END 2018-02-19 15:20 | disposition home or self-care (01) | DRG 314 ==
LOC: ED 16:45 → 3A 22:38
PROVIDERS: ADMIT Internal Medicine; ATTEND Family Medicine
PROC: 0JPV3WZ Removal of Totally Implantable Vascular Access Device from Upper Extremity Subcutaneous Tissue and Fascia, Percutaneous Approach (ICD-10-PCS; 2018-02-12)
PROC: 05PYX3Z Removal of Infusion Device from Upper Vein, External Approach (ICD-10-PCS; 2018-02-12)
PROC: 30233N1 Transfusion of Nonautologous Red Blood Cells into Peripheral Vein, Percutaneous Approach (ICD-10-PCS; principal; 2018-02-14)
PROC: B5191ZA Fluoroscopy of Inferior Vena Cava using Low Osmolar Contrast, Guidance (ICD-10-PCS; 2018-02-19)
PROC: 0JH63XZ Insertion of Tunneled Vascular Access Device into Chest Subcutaneous Tissue and Fascia, Percutaneous Approach (ICD-10-PCS; 2018-02-19)
PROC: 02H633Z Insertion of Infusion Device into Right Atrium, Percutaneous Approach (ICD-10-PCS; 2018-02-19)
PROC: B544ZZA Ultrasonography of Left Jugular Veins, Guidance (ICD-10-PCS; 2018-02-19)
DX: T80.218A Other infection due to central venous catheter, initial encounter (principal); A41.9 Sepsis, unspecified organism; I82.621 Acute embolism and thrombosis of deep veins of right upper extremity; C18.9 Malignant neoplasm of colon, unspecified; R22.1 Localized swelling, mass and lump, neck; E87.6 Hypokalemia; D63.8 Anemia in other chronic diseases classified elsewhere; B95.62 Methicillin resistant Staphylococcus aureus infection as the cause of diseases classified elsewhere; E66.9 Obesity, unspecified; Z68.36 Body mass index [BMI] 36.0-36.9, adult; Z85.038 Personal history of other malignant neoplasm of large intestine; Z79.899 Other long term (current) drug therapy; Z79.01 Long term (current) use of anticoagulants; Z90.49 Acquired absence of other specified parts of digestive tract; Y82.8 Other medical devices associated with adverse incidents; Y92.89 Other specified places as the place of occurrence of the external cause
CPT/HCPCS: 36415; 36569; 70491; 71046; 77001; 80048; 80053; 80202; 81001; 82140; 82607; 82728; 82747; 83550; 83735; 85007; 85014; 85018; 85025; 85027; 85045; 85049; 85520; 85610; 85730; 86140; 86403; 86850; 86900; 86901; 86920; 87040; 87116; 87186; 93306; 96374; C1751; C1769; J0690; J1644; J2250; J2543; J3010; J3370; J3480; J7030; J7040; J7050; P9016; Q9967

== ENCOUNTER 2018-03-26 16:15 | Emergency (ER) | payer OTHER ==
--- NOTE | 2018-03-26 18:25 | Emergency Department Report ---
Blank Doc - Documentation Documentation: Patient is a 52-year-old Female who has a PICC line in the left subclavian. Patient was told that she needed to have this removed with interventional radiology because her nurses at home were having a great deal of resistance with this being removed. Patient come to the emergency department inappropriately to have this removed. I spoke with Dr. Neely within infectious disease she stated that her intentions were to have the patient come to the hospital to see interventional radiology. Review of systems all her systems are reviewed and negati Physical exam patient is a and O 3 there is a PICC line in the left subclavian that does not appear to have an infected wound surrounding the insertion site. Patient will be discharg as a nonmedical emergency. Patient is stable and is actually to return tomorrow for interventional radiology. Ed Ve
[2018-03-26 18:36] VITALS: BP 165/101
== END 2018-03-26 18:30 | disposition left against medical advice (07) ==
LOC: ED 16:15
DX: Z95.9 Presence of cardiac and vascular implant and graft, unspecified (principal); Z53.21 Procedure and treatment not carried out due to patient leaving prior to being seen by health care provider

== ENCOUNTER 2018-03-27 11:19 | Emergency (ER) | payer OTHER ==
--- NOTE | 2018-03-27 12:06 | Emergency Department Report ---
ED General Adult HPI - General Chief complaint: Medical Clearance Stated complaint: PIC LINE REMOVAL Time Seen by Provider: 03/27/18 11:30 Source: patient Mode of arrival: Ambulatory Limitations: No Limitations - History of Present Illness Initial comments: patient is a 52-year-old Citizen Of [place] female who has a PICC line in the left subclavian that is needing removed. Patient was seen at her home by the nurses that due the PICC line removal and there was a great deal of resistance and they were unable to remove the PICC line. Patient needs to see the PICC line team here in the emergency department so that if there is a consultation interventional radiology can also see the patient. Patient is having no complaints at this time. I spoke with Dr. Neely with infectious disease and she agrees that the patient is no longer needing the PICC line. Patient is awaiting PICC line team. - Related Data Previous Rx's Medication Instructions Recorded Last Taken Type Apixaban [Eliquis] 5 mg PO Q12HR #60 tablet 02/19/18 Unknown Rx HYDROcodone/APAP 5-325 [[place] 1 each PO Q6HR PRN #10 tablet 02/19/18 Unknown Rx 5-325 mg TAB] Vancomycin 1,750 mg IV Q12HR mg 02/19/18 Unknown Rx Allergies Allergy/AdvReac Type Severity Reaction Status Date / Time No Known Allergies Allergy Verified 03/27/18 11:24 ED Review of Systems ROS: Stated complaint: PIC LINE REMOVAL Other details as noted in HPI Comment: All other systems reviewed and negative ED Past Medical Hx - Past Medical History Hx Congestive Heart Failure: No Hx Arthritis: Yes Hx Asthma: No Hx COPD: Yes (Hx Bronchitis ) Hx HIV: No Additional medical history: Fibroids, Thyroid nodule - Surgical History Additional Surgical History: Thyroid nodule removed. Colon mass resection - Social History Smoking Status: Never Smoker Substance Use Type: None - Medications Home Medications: Home Medications Medication Instructions Recorded Confirmed Last Taken Type Apixaban [Eliquis] 5 mg PO Q12HR #60 tablet 02/19/18 Unknown Rx HYDROcodone/APAP 5-325 [[place] 1 each PO Q6HR PRN #10 tablet 02/19/18 Unknown Rx 5-325 mg TAB] Vancomycin 1,750 mg IV Q12HR mg 02/19/18 Unknown Rx ED Physical Exam - General Limitations: No Limitations General appearance: alert, in no apparent distress - Head Head exam: Present: atraumatic, normocephalic - Eye Eye exam: Present: normal appearance - ENT ENT exam: Present: mucous membranes moist - Neck Neck exam: Present: normal inspection - Respiratory Respiratory exam: Present: normal lung sounds bilaterally. Absent: respiratory distress - Cardiovascular Cardiovascular Exam: Present: regular rate, normal rhythm. Absent: systolic murmur, diastolic murmur, rubs, gallop - GI/Abdominal GI/Abdominal exam: Present: soft, normal bowel sounds - Extremities Exam Extremities exam: Present: normal inspection - Back Exam Back exam: Present: normal inspection - Neurological Exam Neurological exam: Present: alert, oriented X3 - Psychiatric Psychiatric exam: Present: normal affect, normal mood - Skin Skin exam: Present: warm, dry, intact, normal color. Absent: rash ED Course Vital Signs 03/27/18 11:24 Temperature 97.9 F - Reevaluation(s) Reevaluation #1: 03/27/18 12:06 Patient is in room 36 and is awaiting PICC line nurses ED Medical Decision Making - Medical Decision Making Patient was seen by the PICC line team and they stated this is a type of line that would not be able to taken out by them. Vascular surgery was consulted Dr. Tristan come to bedside and has removed the patient's PICC line this is a special PICC line and it was tunneled. Patient is stable after the procedure and will be discharged. Critical care attestation.: If time is entered above; I have spent that time in minutes in the direct care of this critically ill patient, excluding procedure time. ED Disposition Clinical Impression: S/P PICC central line placement Disposition: DC- TO HOME OR SELFCARE Is pt being admited?: No Does the pt Need Aspirin: No Condition: Stable Referrals: JESSY MONK MD, PHD [Primary Care Provider] - 3-5 Days
--- NOTE | 2018-03-27 14:23 | XRay Report ---
AP chest: Line placement. A left jugular central venous line is present with the tip in the right atrium. The lungs are clear and fully inflated. Mediastinal contour is unremarkable. Impression: PICC line position as described with no complication identified.
--- NOTE | 2018-03-27 16:57 | Operative Report ---
Operative Report Operative Report: Date of procedure: 03/27/2018 Pre-operative diagnosis: Malfunctioning PICC line, catheter no longer needed for antibiotic therapy Post-operative diagnosis: Same Procedure name(s): Removal of left internal jugular vein tunneled PICC line Medical Provider: Shayan Barroso PA-C Supervising Physician: REMI VELOZ M.D. Anesthesia: Local EBL: Scant Complications: None Operative indications: This patient is a 52-year-old female that was recently hospitalized. At that time she is noted to have an infected right internal jugular vein [id number]. This was removed, and a left internal jugular vein tunneled PICC line was subsequently placed. She was discharged from the hospital and completed her course of intravenous antibiotics. The patient presents to the emergency room now, and a surgery consult has been requested to remove her tunneled PICC line. Findings: Successful removal of the left internal jugular vein tunneled PICC line. Cuff and tip appeared be intact. Specimens: Catheter tip sent for culture Procedure: The patient was in emergency room. She was laid supine in the bed, her head was tilted to the right. The area over the base of her left neck and chest were prepped with Betadine solution. She was draped in the usual sterile fashion. She was anesthetized at the exit site with 1% lidocaine. Blunt dissection was used to free the cuff. Once freed the catheter was withdrawn, pressure was applied to the base of the left neck and over the exit site to achieve hemostasis. A Sterile 2 x 2 and Tegaderm were applied. The catheter tip was sent for culture. The patient tolerated the procedure well. Discharge instructions were given to both the patient and the nurse. The patient states she is scheduled for follow-up in our office early next week for [id number] placement. She'll be observed in the emergency room for another 20 minutes to ensure no additional bleeding or other issues arise. The Bandage can be removed in 48 hours. Patient was instructed to apply pressure to the base of the left neck and over the exit site in the event of subsequent bleeding following discharge. Pressure should be held for a minimum of 10 minutes, and subsequent reevaluation. If she continues to bleed she should maintain pressure , and return to the emergency room.
== END 2018-03-27 17:13 | disposition home or self-care (01) ==
LOC: ED 11:19
DX: Z45.2 Encounter for adjustment and management of vascular access device (principal); M19.90 Unspecified osteoarthritis, unspecified site; J44.9 Chronic obstructive pulmonary disease, unspecified
CPT/HCPCS: 71045; 87076; 87116; 87186; 99283

== ENCOUNTER 2018-04-20 10:05 | Emergency (ER) | payer OTHER ==
[2018-04-20 10:21] VITALS: BP 129/93
[2018-04-20] MEDS ORDERED: NORCO 5/325 PO ONE (11:38)
--- NOTE | 2018-04-20 11:45 | Emergency Department Report ---
Chief Complaint: Extremity Injury, Upper Stated Complaint: HAND/FINGER SWELLING Time Seen by Provider: 04/20/18 11:37 - HPI History of Present Illness: 52-year-old [place] female presents to the emergency department with a complaint of a 5 day history of right upper extremity pain and swelling. Patient has a history of colon cancer for which she is getting chemotherapy. She went to see her oncologist on Saturday, 5 days ago, and was told that she could have a blood clot and allegedly was supposed to be set up for a Doppler ultrasound, but was not. No rash, skin color change, fever. - ROS Review of Systems: Positive for right arm pain and swelling Negative for fever, shortness of breath, back pain, rash - Exam Vital Signs: Vital Signs 04/20/18 10:09 Temperature 97.8 F Pulse Rate 76 Respiratory 18 Rate Blood Pressure 129/93 O2 Sat by Pulse 99 Oximetry Physical Exam: Patient does not appear in any acute distress. Refill less than 2 seconds and radial pulse 2+ over 4 to the affected right upper extremity. No obvious appreciable edema. Heart and lungs sounds are normal to auscultation. MSE screening note: Focused history and physical exam performed. Due to findings the following was ordered: She was given a pain pill and will have a right upper romano venous Doppler to rule out a DVT. ED Disposition for MSE Condition: Stable Referrals: PRIMARY CARE, [Primary Care Provider] - 3-5 Days
--- NOTE | 2018-04-20 14:54 | Emergency Department Report ---
ED Upper Extremity Inj HPI - General Chief Complaint: Extremity Injury, Upper Stated Complaint: HAND/FINGER SWELLING Time Seen by Provider: 04/20/18 11:37 Source: patient Mode of arrival: Ambulatory Limitations: No Limitations - History of Present Illness Initial Comments: This is a 52-year-old female nontoxic, well nourished in appearance, no acute signs of distress presents to the ED with c/o of 1 week right upper extremity pain and swelling. Patient stated she was seen by Dr. Pina oncologist and was diagnosed with a "blood cot" and stated has been taking eliquis. Patient stated that this was diagnosis with physical exam but stated she did never had a ultrasound done. Patient denies any nausea, vomiting, chest pain, shortness of breathe, fever, chills, headache, numbness or tingling. Patient denies any joint swelling or joint redness. Patient denies any trauma to the area. Patient denies any allergies. Past medical history includes bronchitis, colon mass resection, thyroid nodule, colon cancer. MD Complaint: Injury to:: right, arm -: week(s) (1) Other Extremity Injury: Arm: Right Other Injuries: none Place: home Severity scale (0 -10): 8 Improves With: immobilization Worsens With: movement of extremity Associated Symptoms: denies other symptoms. denies: weakness, numbness, neck pain, suspects foreign body, nausea/vomiting, heard/felt popping sensat - Related Data Previous Rx's Medication Instructions Recorded Last Taken Type Apixaban [Eliquis] 5 mg PO Q12HR #60 tablet 02/19/18 Unknown Rx HYDROcodone/APAP 5-325 [[place] 1 each PO Q6HR PRN #10 tablet 02/19/18 Unknown Rx 5-325 mg TAB] Vancomycin 1,750 mg IV Q12HR mg 02/19/18 Unknown Rx Acetaminophen/Codeine [Tylenol 1 tab PO Q6H PRN #15 tab 04/20/18 Unknown Rx /Codeine # 3 tab] Allergies Allergy/AdvReac Type Severity Reaction Status Date / Time No Known Allergies Allergy Verified 04/20/18 10:09 ED Review of Systems ROS: Stated complaint: HAND/FINGER SWELLING Other details as noted in HPI Constitutional: denies: chills, fever Eyes: denies: eye pain, eye discharge, vision change ENT: denies: ear pain, throat pain Respiratory: denies: cough, shortness of breath, wheezing Cardiovascular: denies: chest pain, palpitations Endocrine: no symptoms reported Gastrointestinal: denies: abdominal pain, nausea, diarrhea Genitourinary: denies: urgency, dysuria, discharge Musculoskeletal: arthralgia. denies: back pain, joint swelling Skin: denies: rash, lesions Neurological: denies: headache, weakness, paresthesias Psychiatric: denies: anxiety, depression Hematological/Lymphatic: denies: easy bleeding, easy bruising ED Past Medical Hx - Past Medical History Hx Congestive Heart Failure: No Hx Arthritis: Yes Hx Asthma: No Hx COPD: Yes (Hx Bronchitis ) Hx HIV: No Additional medical history: Fibroids, Thyroid nodule, colon cancer - Surgical History Past Surgical History?: Yes Additional Surgical History: Thyroid nodule removed. Colon mass resection - Social History Smoking Status: Never Smoker Substance Use Type: None - Medications Home Medications: Home Medications Medication Instructions Recorded Confirmed Last Taken Type Apixaban [Eliquis] 5 mg PO Q12HR #60 tablet 02/19/18 Unknown Rx HYDROcodone/APAP 5-325 [[place] 1 each PO Q6HR PRN #10 tablet 02/19/18 Unknown Rx 5-325 mg TAB] Vancomycin 1,750 mg IV Q12HR mg 02/19/18 Unknown Rx Acetaminophen/Codeine [Tylenol 1 tab PO Q6H PRN #15 tab 04/20/18 Unknown Rx /Codeine # 3 tab] ED Physical Exam - General Limitations: No Limitations General appearance: alert, in no apparent distress - Head Head exam: Present: atraumatic, normocephalic - Eye Eye exam: Present: normal appearance Pupils: Present: normal accommodation - ENT ENT exam: Present: mucous membranes moist - Neck Neck exam: Present: normal inspection, full ROM. Absent: tenderness, meningismus - Respiratory Respiratory exam: Present: normal lung sounds bilaterally. Absent: respiratory distress, wheezes, rales, rhonchi, stridor, chest wall tenderness, accessory muscle use, decreased breath sounds, prolonged expiratory - Cardiovascular Cardiovascular Exam: Present: regular rate, normal rhythm, normal heart sounds. Absent: bradycardia, tachycardia, irregular rhythm, systolic murmur, diastolic murmur, rubs, gallop - GI/Abdominal GI/Abdominal exam: Present: soft, normal bowel sounds - Extremities Exam Extremities exam: Present: normal inspection, full ROM, tenderness, normal capillary refill. Absent: joint swelling - Expanded Upper Extremity Exam Right General: Present: normal inspection Shoulder Exam: Present: normal inspection, full ROM. Absent: tenderness, swelling, abrasion, laceration, ecchymosis, deformity, crepidus, dislocation, erythema, tenderness over AC joint Upper Arm exam: Present: normal inspection, full ROM, swelling (slight). Absent : tenderness, abrasion, laceration, ecchymosis, deformity, crepidus, dislocation , erythema Elbow exam: Present: normal inspection, full ROM. Absent: tenderness, swelling , abrasion, laceration, ecchymosis, deformity, crepidus, dislocation, erythema, effusion, pain w/ pronation/supination, tenderness over radial head Forearm Wrist exam: Present: normal inspection, full ROM. Absent: tenderness, swelling, abrasion, laceration, ecchymosis, deformity, crepidus, dislocation, erythema, tenderness over anatomical snuff box, pain with axial thumb loading Hand Wrist exam: Present: normal inspection, full ROM. Absent: tenderness, swelling, abrasion, laceration, ecchymosis, deformity, crepidus, dislocation, erythema, amputation, nail avulsion, subungual hematoma Neuro motor exam: Present: wrist extension intact, thumb opposition intact, thumb IP flexion intact, thumb adduction intact, fingers 2-5 abduction intact Neurosensory exam: Present: 2-point discrimination, radial nerve intact, ulnar nerve intact, median nerve intact Vascular: Present: vascular compromise, normal capillary refill, radial pulse, brachial pulse, ulnar pulse - Back Exam Back exam: Present: normal inspection, full ROM - Neurological Exam Neurological exam: Present: alert, oriented X3, normal gait - Psychiatric Psychiatric exam: Present: normal affect, normal mood - Skin Skin exam: Present: warm, dry, intact, normal color. Absent: rash ED Course Vital Signs 04/20/18 04/20/18 04/20/18 10:09 11:49 11:50 Temperature 97.8 F Pulse Rate 76 Respiratory 18 15 15 Rate Blood Pressure 129/93 O2 Sat by Pulse 99 Oximetry - Reevaluation(s) Reevaluation #1: 04/20/18 14:56 Patient is speaking in full sentences with no signs of distress noted. - Consultations Consultation #1: 04/20/18 14:56 Patient has been consulted with Dr. Wesley about patient history, physical exam, and US report and examined and screened patient and agrees to ED plan of care and discharge plan of care. Consultation #2: 04/20/18 14:56 Patient has been consulted with Dr. Bellamy (Dr. Pina partner from oncologist) about patient history, physical exam, and Us report and stated to discharge patient because she is on eliquis and to follow-up in their office tomorrow. ED Medical Decision Making - Medical Decision Making This is a 52-year-old female that presents with right arm DVT. Patient is stable and was examined by me and Dr. Wesley. US doppler obtianed and impression of chronic DVT. Dr. Bellamy oncologist stated that patient should be discharge and follow-up in the office tomorrow. Patient was instructed to continue taking her eliquis. Patient is discharged with Tylenol 3 and she was instructed not to operate any machinery after discharge and while taking Tylenol No. 3 due to possible drowsiness. There is no joint swelling or joint redness but no signs of any cellulitis possibility. Patient stated a family member will drive the patient home. Patient was referred to Follow-up with a primary care doctor in 3-5 days or if symptoms worsen and continue return to emergency room as soon as possible. At time of discharge, the patient does not seem toxic or ill in appearance. No acute signs of distress noted. Patient agrees to discharge treatment plan of care. No further questions noted by the patient. Critical care attestation.: If time is entered above; I have spent that time in minutes in the direct care of this critically ill patient, excluding procedure time. ED Disposition Clinical Impression: Chronic deep venous thrombosis of right axillary vein Disposition: DC-01 TO HOME OR SELFCARE Is pt being admited?: No Does the pt Need Aspirin: No Condition: Stable Instructions: Deep Venous Thrombosis (ED), Apixaban (By mouth), Acetaminophen/ Codeine (By mouth) Additional Instructions: Follow-up with a primary care doctor in 24 hours or if symptoms worsen and continue return to emergency room as soon as possible. Prescriptions: Acetaminophen/Codeine [Tylenol /Codeine # 3 tab] 1 tab PO Q6H PRN #15 tab PRN Reason: Pain Referrals: PRIMARY CARE, [Primary Care Provider] - 3-5 Days [facility] [Outside] - 3-5 Days ANGELICA IPNA MD [Staff Physician] - 24 Hours Forms: Work/School Release Form(ED)
--- NOTE | 2018-04-22 14:58 | Vascular Lab Report ---
RIGHT UPPER EXTREMITY VENOUS DUPLEX: REASON FOR EXAM: Pain and swelling of the right upper extremity COMMENTS ON THE RIGHT: Chronic, recanalized thrombus is seen in the internal jugular vein. The remaining veins visualized are freely compressible without evidence of internal echogenicity. Spontaneous and phasic flow is present proximally. COMMENTS ON THE LEFT: A limited study of the jugular and subclavian veins shows no evidence of thrombus. A port is noted at the left shoulder. IMPRESSION: Chronic partially occluding thrombus is seen in the right internal jugular vein. The remainder of the veins in the right upper extremity do not appear to have any evidence of acute or chronic deep venous thrombosis. A port is noted over the left subclavian area.
== END 2018-04-20 15:09 | disposition home or self-care (01) ==
LOC: ED 10:05
DX: I82.721 Chronic embolism and thrombosis of deep veins of right upper extremity (principal); M19.90 Unspecified osteoarthritis, unspecified site; C18.9 Malignant neoplasm of colon, unspecified; Z79.01 Long term (current) use of anticoagulants

== ENCOUNTER 2018-05-15 21:09 | Emergency (ER) | payer OTHER ==
--- NOTE | 2018-05-16 00:04 | Emergency Department Report ---
ED General Adult HPI - General Chief complaint: Neuro Symptoms/Deficit Stated complaint: FACE SWOLLEN Time Seen by Provider: 05/15/18 23:24 Source: patient Mode of arrival: Ambulatory Limitations: No Limitations - History of Present Illness Initial comments: Pt developed right facial/neck swelling that started earlier today. Pt has h/o right IJ DVT. Currently on eliquis. No cp/sob. On eliquis - Related Data Previous Rx's Medication Instructions Recorded Last Taken Type Apixaban [Eliquis] 5 mg PO Q12HR #60 tablet 02/19/18 Unknown Rx HYDROcodone/APAP 5-325 [[place] 1 each PO Q6HR PRN #10 tablet 02/19/18 Unknown Rx 5-325 mg TAB] Vancomycin 1,750 mg IV Q12HR mg 02/19/18 Unknown Rx Acetaminophen/Codeine [Tylenol 1 tab PO Q6H PRN #15 tab 04/20/18 Unknown Rx /Codeine # 3 tab] Allergies Allergy/AdvReac Type Severity Reaction Status Date / Time No Known Allergies Allergy Verified 05/15/18 21:34 ED Review of Systems ROS: Stated complaint: FACE SWOLLEN Other details as noted in HPI Comment: All other systems reviewed and negative ENT: other (face/throat swelling) ED Past Medical Hx - Past Medical History Previous Medical History?: Yes Hx Congestive Heart Failure: No Hx Arthritis: Yes Hx Asthma: No Hx COPD: Yes (Hx Bronchitis ) Hx HIV: No Additional medical history: Fibroids, Thyroid nodule, colon cancer - Surgical History Additional Surgical History: Thyroid nodule removed. Colon mass resection - Social History Smoking Status: Never Smoker Substance Use Type: Alcohol - Medications Home Medications: Home Medications Medication Instructions Recorded Confirmed Last Taken Type Apixaban [Eliquis] 5 mg PO Q12HR #60 tablet 02/19/18 Unknown Rx HYDROcodone/APAP 5-325 [[place] 1 each PO Q6HR PRN #10 tablet 02/19/18 Unknown Rx 5-325 mg TAB] Vancomycin 1,750 mg IV Q12HR mg 02/19/18 Unknown Rx Acetaminophen/Codeine [Tylenol 1 tab PO Q6H PRN #15 tab 04/20/18 Unknown Rx /Codeine # 3 tab] ED Physical Exam - General Limitations: No Limitations General appearance: alert, in no apparent distress - Head Head exam: Present: atraumatic, normocephalic - Eye Eye exam: Present: normal appearance - ENT ENT exam: Present: normal orophraynx, mucous membranes moist - Neck Neck exam: Present: normal inspection, full ROM. Absent: tenderness, lymphadenopathy, thyromegaly - Respiratory Respiratory exam: Absent: respiratory distress - Cardiovascular Cardiovascular Exam: Absent: systolic murmur, diastolic murmur, rubs, gallop - Extremities Exam Extremities exam: Present: normal inspection - Back Exam Back exam: Present: normal inspection - Neurological Exam Neurological exam: Present: alert, oriented X3 - Psychiatric Psychiatric exam: Present: normal affect, normal mood - Skin Skin exam: Present: warm, dry, intact, normal color. Absent: rash ED Course Vital Signs 05/15/18 05/15/18 05/15/18 21:06 21:34 23:20 Temperature 98.3 F 98.3 F Pulse Rate 94 H 94 H Respiratory 18 18 Rate Blood Pressure 134/86 134/86 Blood Pressure [Left] O2 Sat by Pulse 100 100 95 Oximetry 05/15/18 23:29 Temperature 98.2 F Pulse Rate 91 H Respiratory 20 Rate Blood Pressure Blood Pressure 134/82 [Left] O2 Sat by Pulse 98 Oximetry ED Medical Decision Making - Medical Decision Making Physical female has not a history of right IJ DVT on eliquis that presents to the ER with subjective right-sided facial/neck swelling. Patient is well- appearing. No appreciable deformity at this time. Oropharynx unremarkable. Vital signs stable. Patient has no evidence of pulmonary embolus. She says she 's been compliant with her eliquis. I have instructed her to continue taking her eliquis and set her up with an outpatient appointment for an ultrasound tomorrow to further evaluate her DVT. I told if she develops any sudden onset shortness of breath or chest pain to return to the ER immediately for reevaluation. No sublingual induration. Low suspicion for infectious etiology - Differential Diagnosis DVT, PE, cellulitis, abscess, hives, thryomegaly, yobani's Critical care attestation.: If time is entered above; I have spent that time in minutes in the direct care of this critically ill patient, excluding procedure time. ED Disposition Clinical Impression: Facial swelling Disposition: - TO HOME OR SELFCARE Is pt being admited?: No Condition: Stable Additional Instructions: Please call in the morning to set up your appointment for your neck ultrasound. If you develop chest pain or shortness of breath in the meantime, return to the ER immediately. Referrals: PRIMARY CARE,MD [Primary Care Provider] - 3-5 Days
[2018-05-16 00:32] VITALS: BP 139/93
== END 2018-05-16 00:32 | disposition home or self-care (01) ==
LOC: ED 21:09
DX: R22.0 Localized swelling, mass and lump, head (principal); M19.90 Unspecified osteoarthritis, unspecified site; J44.9 Chronic obstructive pulmonary disease, unspecified
CPT/HCPCS: 99282

== ENCOUNTER 2018-05-16 10:04 | Outpatient (CLI) | payer OTHER ==
--- NOTE | 2018-05-20 09:54 | Vascular Lab Report ---
RIGHT UPPER EXTREMITY VENOUS DUPLEX: REASON FOR EXAM: Pain and swelling of the right upper extremity COMMENTS ON THE RIGHT: Chronic thrombosis seen in the right internal jugular vein consistent with a previous study dated 2017. The remaining veins visualized are freely compressible without evidence of internal echogenicity. Spontaneous and phasic flow is absent proximally. COMMENTS ON THE LEFT: A limited study of the jugular and subclavian veins shows no evidence of thrombus. IMPRESSION: Chronic thrombus is noted in the right internal jugular vein. The study is unchanged from April 20, 2018.
== END 2018-05-16 10:05 | disposition home or self-care (01) ==
LOC: VAS 10:04
PROVIDERS: ATTEND Emergency Medicine
DX: I82.891 Chronic embolism and thrombosis of other specified veins (principal)

== ENCOUNTER 2019-01-03 00:27 | Emergency (ER) | payer OTHER ==
[2019-01-03 01:52] LABS: Basophils % (Auto) 0.2 % (0.0-1.8); Eosinophils # (Auto) 0.1 K/mm3 (0.0-0.4); Eosinophils % (Auto) 1.5 % (0.0-4.3); Hematocrit 36.4 % (30.3-42.9); Hemoglobin 12.6 gm/dl (10.1-14.3); Lymphocytes # (Auto) 1.9 K/mm3 (1.2-5.4); Lymphocytes % (Auto) 22.9 % (13.4-35.0); Mean Corpuscular HGB Conc 35 % (30-34); Mean Corpuscular Volume 95 fl (79-97); Monocytes # (Auto) 0.5 K/mm3 (0.0-0.8); Monocytes % (Auto) 5.4 % (0.0-7.3); Platelet Count 193 K/mm3 (140-440); Red Blood Count 3.81 M/mm3 (3.65-5.03); Red Cell Distribution Width 13.6 % (13.2-15.2)
[2019-01-03 02:01] LABS: INR 0.96 (0.87-1.13)
[2019-01-03 02:02] LABS: Partial Thromboplastin Time 25.6 Sec. (24.2-36.6)
[2019-01-03 02:35] LABS: Alanine Aminotransferase 29 units/L (7-56); BUN/Creatinine Ratio 26; Blood Urea Nitrogen 13 mg/dL (7-17); Calcium 8.7 mg/dL (8.4-10.2); Hemolysis Index 3
[2019-01-03 03:19] VITALS: BP 128/80
--- NOTE | 2019-01-03 04:48 | Emergency Department Report ---
ED General Adult HPI - General Chief complaint: Vaginal Bleeding Stated complaint: CLOTTING Time Seen by Provider: 01/03/19 04:09 Source: patient, RN notes reviewed, old records reviewed Mode of arrival: Ambulatory Limitations: No Limitations - History of Present Illness Initial comments: Oncology: Dr Pina Past medical history: Colon cancer status post resection, jugular vein thrombosis, on systemic anticoagulation, eliquis this is a 53-year-old female who presents to the emergency room with the complaint of painless vaginal bleeding. The vaginal bleeding has been going on for 5 days. It is intermittent, painless, does not radiate anywhere, and does not have exacerbating or relieving factors. Patient reports last episode of vaginal bleeding was over a year ago. She has no hematemesis, bright red blood per rectum, lightheadedness, new or different shortness of breath, and denies irritative /obstructive urinary symptoms. Patient reports that she has been using pads, and believe she has used 6-8 pads in the past 24 hours. -: Gradual Location: genitals Severity scale (0 -10): 0 Consistency: constant Improves with: none Worsens with: none Associated Symptoms: denies other symptoms - Related Data Previous Rx's Medication Instructions Recorded Last Taken Type Apixaban [Eliquis] 5 mg PO Q12HR #60 tablet 02/19/18 Unknown Rx HYDROcodone/APAP 5-325 [[place] 1 each PO Q6HR PRN #10 tablet 02/19/18 Unknown Rx 5-325 mg TAB] Vancomycin 1,750 mg IV Q12HR mg 02/19/18 Unknown Rx Acetaminophen/Codeine [Tylenol 1 tab PO Q6H PRN #15 tab 04/20/18 Unknown Rx /Codeine # 3 tab] Allergies Allergy/AdvReac Type Severity Reaction Status Date / Time No Known Allergies Allergy Verified 05/15/18 21:34 ED Review of Systems ROS: Stated complaint: CLOTTING Other details as noted in HPI Constitutional: denies: fever Eyes: denies: vision change ENT: denies: epistaxis Respiratory: denies: cough Cardiovascular: denies: chest pain Gastrointestinal: denies: abdominal pain, hematemesis, melena, hematochezia Genitourinary: abnormal menses. denies: urgency, dysuria Musculoskeletal: denies: back pain Skin: denies: lesions Neurological: denies: headache Psychiatric: anxiety ED Past Medical Hx - Past Medical History Previous Medical History?: Yes Hx Congestive Heart Failure: No Hx Arthritis: Yes Hx Asthma: No Hx COPD: Yes (Hx Bronchitis ) Hx HIV: No Additional medical history: Fibroids, Thyroid nodule, colon cancer, - Surgical History Past Surgical History?: Yes Additional Surgical History: Thyroid nodule removed. Colon mass resection - Social History Smoking Status: Never Smoker Substance Use Type: None - Medications Home Medications: Home Medications Medication Instructions Recorded Confirmed Last Taken Type Apixaban [Eliquis] 5 mg PO Q12HR #60 tablet 02/19/18 Unknown Rx HYDROcodone/APAP 5-325 [[place] 1 each PO Q6HR PRN #10 tablet 02/19/18 Unknown Rx 5-325 mg TAB] Vancomycin 1,750 mg IV Q12HR mg 02/19/18 Unknown Rx Acetaminophen/Codeine [Tylenol 1 tab PO Q6H PRN #15 tab 04/20/18 Unknown Rx /Codeine # 3 tab] ED Physical Exam - General Limitations: No Limitations General appearance: alert, in no apparent distress - Head Head exam: Present: atraumatic, normocephalic - Eye Eye exam: Present: normal appearance, EOMI. Absent: nystagmus - ENT ENT exam: Present: normal exam, normal orophraynx, mucous membranes moist, normal external ear exam - Neck Neck exam: Present: normal inspection, full ROM. Absent: tenderness, meningismus - Respiratory Respiratory exam: Present: normal lung sounds bilaterally, other (left-sided thoracic wall port appreciated, with no redness, pus or streaking). Absent: respiratory distress, wheezes, rales, rhonchi, stridor, chest wall tenderness - Cardiovascular Cardiovascular Exam: Present: regular rate, normal rhythm, normal heart sounds. Absent: bradycardia, tachycardia, irregular rhythm, systolic murmur, diastolic murmur, rubs, gallop - GI/Abdominal GI/Abdominal exam: Present: soft. Absent: distended, tenderness, guarding, rebound, rigid, pulsatile mass - External exam: Present: normal external exam Speculum exam: Present: normal speculum exam, vaginal bleeding, other (chaperoned by nurse Tae Fields) Bi-manual exam: Present: normal bi-manual exam. Absent: cervical motion tendernes, adnexal tenderness, adnexal mass - Extremities Exam Extremities exam: Present: normal inspection, full ROM, other (2+ pulses noted in the bilateral upper, lower extremities. Compartments soft. No long bony tenderness. The pelvis is stable.). Absent: pedal edema, joint swelling, calf tenderness - Back Exam Back exam: Present: normal inspection, full ROM. Absent: tenderness, CVA tenderness (R), paraspinal tenderness, vertebral tenderness - Neurological Exam Neurological exam: Present: alert, oriented X3, CN II-XII intact, normal gait, other (Extraocular movements intact. Tongue midline. No facial droop. Facial sensation intact to light touch in the V1, V2, V3 distribution bilaterally. 5 and 5 strength in 4 extremities.. Sensation is intact to light touch in 4 extremities.). Absent: motor sensory deficit - Psychiatric Psychiatric exam: Present: anxious - Skin Skin exam: Present: warm, dry, intact, normal color. Absent: rash ED Course Vital Signs 01/03/19 01/03/19 01/03/19 01:02 03:07 03:18 Temperature 98.0 F 97.7 F Pulse Rate 79 79 Respiratory 20 20 18 Rate Blood Pressure 123/81 Blood Pressure 128/80 [Left] O2 Sat by Pulse 100 99 Oximetry ED Medical Decision Making - Lab Data Result diagrams: 01/03/19 01:25 01/03/19 01:25 Vital Signs 01/03/19 01/03/19 01/03/19 01:02 03:07 03:18 Temperature 98.0 F 97.7 F Pulse Rate 79 79 Respiratory 20 20 18 Rate Blood Pressure 123/81 Blood Pressure 128/80 [Left] O2 Sat by Pulse 100 99 Oximetry Lab Results 01/03/19 01/03/19 01/03/19 Range/Units 01:25 01:25 01:25 WBC 8.3 (4.5-11.0) K/mm3 RBC 3.81 (3.65-5.03) M/mm3 Hgb 12.6 (10.1-14.3) gm/dl Hct 36.4 (30.3-42.9) % MCV 95 (79-97) fl MCH 33 H (28-32) pg MCHC 35 H (30-34) % RDW 13.6 (13.2-15.2) % Plt Count 193 (140-440) K/mm3 Lymph % (Auto) 22.9 (13.4-35.0) % [place] % (Auto) 5.4 (0.0-7.3) % Eos % (Auto) 1.5 (0.0-4.3) % Baso % (Auto) 0.2 (0.0-1.8) % Lymph # 1.9 (1.2-5.4) K/mm3 [place] # 0.5 (0.0-0.8) K/mm3 Eos # 0.1 (0.0-0.4) K/mm3 Baso # 0.0 (0.0-0.1) K/mm3 Seg Neutrophils % 70.0 (40.0-70.0) % Seg Neutrophils # 5.8 (1.8-7.7) K/mm3 PT 13.4 (12.2-14.9) Sec. INR 0.96 (0.87-1.13) APTT 25.6 (24.2-36.6) Sec. Sodium 139 (137-145) mmol/L Potassium 4.1 (3.6-5.0) mmol/L Chloride 104.4 (98-107) mmol/L Carbon Dioxide 24 (22-30) mmol/L Anion Gap 15 mmol/L BUN 13 (7-17) mg/dL Creatinine 0.5 L (0.7-1.2) mg/dL Estimated GFR > 60 ml/min BUN/Creatinine Ratio 26 % Glucose 107 H (65-100) mg/dL Calcium 8.7 (8.4-10.2) mg/dL Total Bilirubin 0.30 (0.1-1.2) mg/dL AST 23 (5-40) units/L ALT 29 (7-56) units/L Alkaline Phosphatase 104 (35-129) units/L Total Protein 6.8 (6.3-8.2) g/dL Albumin 4.0 (3.9-5) g/dL Albumin/Globulin Ratio 1.4 % - Medical Decision Making Differential diagnosis, including but not limited to: Anticoagulation related vaginal bleeding bleeding, menopause, endometrial malignancy Assessment and plan: 53-year-old female with painless vaginal bleeding for 4-5 days. The patient is afebrile with reassuring vital signs. Hemoglobin, hematocrit 12.6 over 36.4 respectively. Not having symptoms consistent with anemia that would be symptomatic. Most likely having bleeding secondary to anticoagulation utilization. No other obvious sites of bleeding. Contacted her covering computational linguist, Dr. Pina, who recommended the patient continue her systemic anticoagulation. She agrees to closely follow-up the patient within the next we ek for repeat evaluation. The patient has no pain or tenderness, and does not require an emergent ultrasound at this time. Patient is counseled to continue her outpatient anticoagulation, and closely monitor her symptoms, and tampon/pad utilization. She reports that she is able to return if worse. Critical care attestation.: If time is entered above; I have spent that time in minutes in the direct care of this critically ill patient, excluding procedure time. ED Disposition Clinical Impression: Vaginal bleeding Disposition: TO HOME OR SELFCARE Is pt being admited?: No Does the pt Need Aspirin: No Condition: Good Instructions: Bleeding (ED) Additional Instructions: Continue outpatient medications, including eliquis Follow-up with your computational linguist within the next 5 days for repeat checkup/evaluation. Follow up with a dump worker within the next month. Return to the emergency room right away with new pain, worsened pain, migration of pain, bleeding more than 2-3 pads soaked per hour, lightheadedness, chest pain, shortness of breath, loss of consciousness. The patient should follow-up with a dump worker within the next month to exclude atypical presentation of gynecologic cancer, tumor, malignancy. Referrals: ANGELICA PINA MD [Staff Physician] - 3-5 Days [id number] [Provider Group] - as needed [facility] [Provider Group] - 7-10 days [facility] [Provider Group] - as needed
== END 2019-01-03 04:59 | disposition home or self-care (01) ==
LOC: ED 00:27
DX: N93.9 Abnormal uterine and vaginal bleeding, unspecified (principal); F41.9 Anxiety disorder, unspecified; J44.9 Chronic obstructive pulmonary disease, unspecified
CPT/HCPCS: 36415; 80053; 85025; 85027; 85610; 85730; 99283

== ENCOUNTER 2019-02-19 09:55 | Outpatient (CLI) | payer OTHER ==
[2019-02-19 10:55] LABS: Blood Urea Nitrogen 10 mg/dL (7-17)
--- NOTE | 2019-02-19 13:19 | Cat Scan Report ---
CT scan of chest with IV contrast: History: Malignant neoplasm of transverse colon. Findings: No endobronchial or mediastinal mass. No mediastinal, hilar or axillary adenopathy. No pleural or pericardial effusion. Small hiatal hernia. Minimal bilateral pleural thickening. No discrete nodularity or consolidation. Impression: Small sliding hiatal hernia. Minimal pleural thickening bilaterally with
--- NOTE | 2019-02-19 13:24 | Cat Scan Report ---
CT scan of abdomen and pelvis with IV contrast: History: Malignant neoplasm of transverse colon. Findings: Normal liver spleen pancreas and gallbladder. Normal adrenals. There is a 1.5 cm cyst left kidney. Normal bladder. No free intraperitoneal fluid or air. No evidence of adenopathy. Grossly bowel gas but appears normal. Enlarged uterus with multiple fibroids. No adnexal mass. Impression: Enlarged uterus with multiple fibroids. Cysts left kidney.
--- NOTE | 2019-02-19 13:27 | Cat Scan Report ---
CT scan of neck with IV contrast: History: Malignant neoplasm of transverse colon. Findings: Laryngeal and tracheal air column appears unremarkable. Multiple lymph nodes are identified in neck however no evidence of adenopathy is noted. Vascular structures appears normal. Normal submandibular salivary glands and the parotid glands. Pre-and paravertebral soft tissue appears normal. Impression: Findings as detailed above. No definite evidence of mass or adenopathy.
--- NOTE | 2019-02-19 15:06 | Vascular Lab Report ---
PROCEDURE: US RIGHT UPPER EXTREMITY VENOUS DUPLEX DOPPLER TECHNIQUE: Duplex Doppler sonography of the RIGHT subclavian, axillary, brachial, basilic, cephalic, and internal jugular veins was attempted. Ko scale imaging with and without compression, spectral waveform analysis with and without augmentation, and color flow Doppler were employed. CPT 08405 HISTORY: Evaluate DVT. History of colonic malignancy. COMPARISONS: None . FINDINGS: Deep Venous Thrombus: None . The right jugular vein is only partially compressible however no fillin g defects are seen. This can be associated with previous episodes of DVT. A DVT currently is not visu alized. Superficial Venous Thrombus: None . Venous valvular incompetence: None . Soft tissue abnormality: None . IMPRESSION: Decreased compressibility right jugular vein as described may be related to previous epi sodes of DVT. I do not see a filling defect today that would indicate acute DVT at the present time. . This document is electronically signed by Everardo Pichardo MD., February 19 2019 03:04:40 PM ET
== END 2019-02-19 09:56 | disposition home or self-care (01) ==
LOC: VAS 09:55
PROVIDERS: ATTEND Internal Medicine Hematology & Oncology
DX: D25.9 Leiomyoma of uterus, unspecified (principal); N28.1 Cyst of kidney, acquired; K44.9 Diaphragmatic hernia without obstruction or gangrene; C18.4 Malignant neoplasm of transverse colon; D68.69 Other thrombophilia; J44.9 Chronic obstructive pulmonary disease, unspecified; E66.9 Obesity, unspecified; M19.90 Unspecified osteoarthritis, unspecified site
CPT/HCPCS: 36415; 70491; 71260; 74177; 82565; 84520; 93971; Q9967

== ENCOUNTER 2020-11-03 13:54 | Outpatient (CLI) | payer OTHER ==
--- NOTE | 2020-11-03 16:52 | Cat Scan Report ---
CT abdomen pelvis w con, CT chest w con INDICATION: COLON CA. TECHNIQUE: All CT scans at this location are performed using CT dose reduction for ALARA by means of automated e xposure control. COMPARISON: 02/19/2019 FINDINGS: CT CHEST: No mediastinal, hilar or axillary adenopathy. No significant pulmonary or pleural lesions. CT ABDOMEN: Mild hepatic steatosis. No liver lesions. Gallbladder, spleen, pancreas, kidneys and adrenals are neg ative. Abdominal aorta is normal in size. No adenopathy. CT PELVIS: Patient has apparently undergone partial colectomy, with anastomosis on the left. Obstruction or abno rmal mass. Enlarged, fibroid uterus. Urinary bladder is negative. No pelvic adenopathy. Sclerosis at both sacroiliac joints, suggesting sacroiliitis. No skeletal lesions. IMPRESSION: 1. Resection of the right and transverse colon, with ileocolic anastomosis on the left. 2. No evidence of metastasis. Signer Name: Ady Elsie MD Signed: 11/03/2020 4:47 PM Workstation Name: [id number]
== END 2020-11-03 13:55 | disposition home or self-care (01) ==
LOC: CT 13:54
PROVIDERS: ATTEND Internal Medicine Hematology & Oncology
DX: C18.4 Malignant neoplasm of transverse colon (principal); K76.0 Fatty (change of) liver, not elsewhere classified; D25.9 Leiomyoma of uterus, unspecified; N85.2 Hypertrophy of uterus
CPT/HCPCS: 36415; 71260; 74177; 82565; 84520; Q9967

== ENCOUNTER 2021-05-12 15:22 | Emergency (ER) | payer OTHER ==
[2021-05-12] MEDS ORDERED: ASPIRIN 325 MG TAB PO ONE (20:47)
[2021-05-12] MEDS ORDERED: FAMOTIDINE 20 MG TAB PO ONE (20:47)
[2021-05-12 21:08] LABS: Basophils % (Auto) 0.2 % (0.0-1.8); Eosinophils # (Auto) 0.1 K/mm3 (0.0-0.4); Hematocrit 38.8 % (30.3-42.9); Hemoglobin 13.1 gm/dl (10.1-14.3); Lymphocytes # (Auto) 1.9 K/mm3 (1.2-5.4); Lymphocytes % (Auto) 27.8 % (13.4-35.0); Mean Corpuscular HGB Conc 34 % (30-34); Mean Corpuscular Volume 100 fl (79-97); Monocytes # (Auto) 0.5 K/mm3 (0.0-0.8); Monocytes % (Auto) 7.8 % (0.0-7.3); Platelet Count 190 K/mm3 (140-440); Red Cell Distribution Width 14.4 % (13.2-15.2)
--- NOTE | 2021-05-12 21:24 | XRay Report ---
CHEST 1 VIEW 05/12/2021 8:13 PM INDICATION / CLINICAL INFORMATION: chest pain. COMPARISON: 03/27/2018 FINDINGS: SUPPORT DEVICES: Port-A-Cath catheter tip projects the level the superior vena cava HEART / MEDIASTINUM: No significant abnormality. LUNGS / PLEURA: No significant pulmonary or pleural abnormality. No pneumothorax. ADDITIONAL FINDINGS: No significant additional findings. IMPRESSION: 1. No acute findings. Signer Name: Fidencio Slaughter MD Signed: 05/12/2021 9:19 PM Workstation Name: [id number]
[2021-05-12 21:34] LABS: Alanine Aminotransferase 22 units/L (7-56); Albumin 4.4 g/dL (3.9-5); BUN/Creatinine Ratio 19; Blood Urea Nitrogen 19 mg/dL (7-17); Calcium 9.1 mg/dL (8.4-10.2); Hemolysis Index 8
--- NOTE | 2021-05-12 23:28 | Emergency Department Report ---
ED General Adult HPI - General Chief complaint: Neuro Symptoms/Deficit Stated complaint: NUMBNESS LT ARM Source: patient Mode of arrival: Ambulatory Limitations: No Limitations - History of Present Illness Initial comments: Patient is a 55-year-old female with a history of chronic osteoarthritis, hypothyroidism, chronic neck pain, uterine fibroids, colon cancer s/p chemotherapy and in remission in 2018 and chronic bronchitis who presents to the ED with complaint of acute onset persistent intermittent left arm tingling and numbness sensations for the last 3 weeks. Patient states that in the last 1 week, the frequency of tingling sensation on the distal left arm has increased and that in the last 24 hours she has also been feeling intermittent left-sided chest pain. Patient denies dizziness, syncope, shortness of breath, headache, traumatic injury, fall, heavy lifting, cough, abdominal pain, nausea and vomiting, fever, chills, left arm weakness and change in vision. MD Complaint: left arm tingling and numbness sensation -: Sudden, week(s) (3) Location: upper extremity (left arm) Radiation: distal Severity scale (0 -10): 4 Quality: aching Consistency: intermittent Improves with: none Worsens with: none Associated Symptoms: denies other symptoms, chest pain (left sided chest wall pain). denies: confusion, cough, diaphoresis, fever/chills, headaches, loss of appetite, malaise, nausea/vomiting, rash, seizure, shortness of breath, syncope, weakness Treatments Prior to Arrival: none - Related Data Previous Rx's Medication Instructions Recorded Last Taken Type Apixaban [Eliquis] 5 mg PO Q12HR #60 tablet 02/19/18 Unknown Rx HYDROcodone/APAP 5-325 [[place] 1 each PO Q6HR PRN #10 tablet 02/19/18 Unknown Rx 5-325 mg TAB] Vancomycin 1,750 mg IV Q12HR mg 02/19/18 Unknown Rx Acetaminophen/Codeine [Tylenol 1 tab PO Q6H PRN #15 tab 04/20/18 Unknown Rx /Codeine # 3 tab] Gabapentin 300 mg PO BID PRN #20 cap 05/12/21 Unknown Rx predniSONE [Deltasone] 40 mg PO QDAY #10 tab 05/12/21 Unknown Rx Allergies Allergy/AdvReac Type Severity Reaction Status Date / Time No Known Allergies Allergy Verified 05/15/18 21:34 ED Review of Systems ROS: Stated complaint: NUMBNESS LT ARM Other details as noted in HPI Constitutional: denies: chills, fever Eyes: denies: eye pain, eye discharge, vision change ENT: denies: ear pain, throat pain Respiratory: denies: cough, shortness of breath, wheezing Cardiovascular: chest pain (left sided chest pain). denies: palpitations, dyspnea on exertion, syncope, paroxysmal nocturnal dyspnea, other Endocrine: no symptoms reported Gastrointestinal: denies: abdominal pain, nausea, vomiting, diarrhea Genitourinary: denies: urgency, dysuria, discharge Musculoskeletal: arthralgia (left upper arm tingling and numbness sensation). denies: back pain, joint swelling, myalgia Skin: denies: rash, lesions Neurological: denies: headache, weakness, paresthesias Psychiatric: denies: anxiety, depression Hematological/Lymphatic: denies: easy bleeding, easy bruising ED Past Medical Hx - Past Medical History Previous Medical History?: Yes Hx Arthritis: Yes Hx Asthma: No Hx COPD: Yes (Hx Bronchitis ) Hx HIV: No Additional medical history: Fibroids, Thyroid nodule, colon cancer, - Surgical History Additional Surgical History: Thyroid nodule removed. Colon mass resection - Social History Smoking Status: Never Smoker Substance Use Type: None - Medications Home Medications: Home Medications Medication Instructions Recorded Confirmed Last Taken Type Apixaban [Eliquis] 5 mg PO Q12HR #60 tablet 02/19/18 Unknown Rx HYDROcodone/APAP 5-325 [[place] 1 each PO Q6HR PRN #10 tablet 02/19/18 Unknown Rx 5-325 mg TAB] Vancomycin 1,750 mg IV Q12HR mg 02/19/18 Unknown Rx Acetaminophen/Codeine [Tylenol 1 tab PO Q6H PRN #15 tab 04/20/18 Unknown Rx /Codeine # 3 tab] Gabapentin 300 mg PO BID PRN #20 cap 05/12/21 Unknown Rx predniSONE [Deltasone] 40 mg PO QDAY #10 tab 05/12/21 Unknown Rx ED Physical Exam - General Limitations: No Limitations General appearance: alert, in no apparent distress - Head Head exam: Present: atraumatic, normocephalic, normal inspection - Eye Eye exam: Present: normal appearance, PERRL, EOMI Pupils: Present: normal accommodation - ENT ENT exam: Present: normal exam, normal orophraynx, mucous membranes moist, TM's normal bilaterally, normal external ear exam - Neck Neck exam: Present: normal inspection, full ROM - Respiratory Respiratory exam: Present: normal lung sounds bilaterally. Absent: respiratory distress, wheezes, rales, rhonchi, stridor, chest wall tenderness, accessory muscle use - Cardiovascular Cardiovascular Exam: Present: regular rate, normal rhythm, normal heart sounds. Absent: systolic murmur, diastolic murmur, rubs, gallop - GI/Abdominal GI/Abdominal exam: Present: soft, normal bowel sounds. Absent: tenderness, guarding, rebound, hyperactive bowel sounds, hypoactive bowel sounds, organomegaly, mass - Extremities Exam Extremities exam: Present: normal inspection, full ROM, normal capillary refill - Back Exam Back exam: Present: normal inspection, full ROM. Absent: tenderness, CVA tenderness (R), CVA tenderness (L), muscle spasm, paraspinal tenderness, vertebral tenderness, rash noted - Neurological Exam Neurological exam: Present: alert, oriented X3, CN II-XII intact, normal gait, reflexes normal - Psychiatric Psychiatric exam: Present: normal affect, normal mood, anxious - Skin Skin exam: Present: warm, dry, intact, normal color. Absent: rash ED Course Vital Signs 05/12/21 15:35 Temperature 98.0 F Pulse Rate 70 Respiratory 18 Rate Blood Pressure 118/77 [Right] O2 Sat by Pulse 100 Oximetry ED Medical Decision Making - Lab Data Result diagrams: 05/12/21 20:51 05/12/21 20:51 - EKG Data EKG shows normal: sinus rhythm Rate: bradycardia - EKG Data Interpretation: normal EKG 05/13/21 00:19 The EKG shows sinus bradycardia with a ventricular rate of [address] or T wave abnormalities. - Radiology Data Radiology results: report reviewed, image reviewed [facility] [address] [place] [address] XRay Report Signed Patient: GERARDO BORRERO MR#: [id number] : 1965 Acct:[id number] Age/Sex: 55 / F ADM Date: 05/12/21 Loc: ED Attending Dr: Ordering Physician: GENE HILL Date of Service: 05/12/21 Procedure(s): XR chest 1V ap Accession Number(s): [id number] cc: GENE HILL Fluoro Time In Minutes: CHEST 1 VIEW 05/12/2021 8:13 PM INDICATION / CLINICAL INFORMATION: chest pain. COMPARISON: 03/27/2018 FINDINGS: SUPPORT DEVICES: Port-A-Cath catheter tip projects the level the superior vena cava HEART / MEDIASTINUM: No significant abnormality. LUNGS / PLEURA: No significant pulmonary or pleural abnormality. No pneumothorax. ADDITIONAL FINDINGS: No significant additional findings. IMPRESSION: 1. No acute findings. Signer Name: Fidencio Slaughter MD Signed: 05/12/2021 9:19 PM Workstation Name: [id number] Transcribed By: SS Dictated By: Fidencio Slaughter MD Electronically Authenticated By: Fidencio Slaughter MD Signed Date/Time: 05/12/212118 DD/ 17 TD/TT: - Medical Decision Making This is a 55-year-old female with a history of chronic osteoarthritis, hypothyroidism, chronic neck pain, uterine fibroids, colon cancer s/p chemotherapy and in remission in 2018 and chronic bronchitis who presents to the ED with complaint of acute onset persistent intermittent left arm tingling and numbness sensations for the last 3 weeks. Patient states that in the last 1 week, the frequency of tingling sensation on the distal left arm has increased and that in the last 24 hours she has also been feeling intermittent left-sided chest pain. In the ED, patient is alert and oriented x3 and is not in any distress but appears anxious. EKG shows sinus bradycardia with a ventricular rate of [address] or T wave abnormalities. Chest x-ray shows no acute cardiopulmonary abnormalities or pneumonitis. All lab test results were reviewed and are all nonactionable including initial and 3-hour repeat troponin levels. Patient was treated for pain in the ED and on reevaluation, patient's pain is well controlled medications. Patient was discharged home on medications and advised to follow-up with his primary care physician in 5 to 7 days for reevaluation. Patient is advised return to the ED immediately if symptoms get worse. - Differential Diagnosis radiculopathy; cervical disc disease; ACS; tendinitis; muscle strain; Critical care attestation.: If time is entered above; I have spent that time in minutes in the direct care of this critically ill patient, excluding procedure time. ED Disposition Clinical Impression: Left cervical radiculopathy, Tingling of left upper extremity Disposition: DC-01 TO HOME OR SELFCARE Is pt being admited?: No Does the pt Need Aspirin: No Condition: Stable Instructions: Cervical Radiculopathy, [id number], Paresthesia, [id number] Additional Instructions: All lab test results were reviewed and are all nonactionable. Chest x-ray showed no acute cardiopulmonary abnormalities or pneumonitis. Therefore based on the history and physical exam findings, EKG report, chest x-ray report and lab test results, your symptoms are likely due to cervical radiculopathy affecting the left arm. Therefore take medications with food, drink plenty of fluids and follow-up with your primary care physician in 5 to 7 days for reevaluation. Return to the ED immediately if symptoms get worse. Prescriptions: predniSONE [Deltasone] 40 mg PO QDAY #10 tab Gabapentin 300 mg PO BID PRN #20 cap PRN Reason: neuropathy Referrals: LESLIE KABA MD [Staff Physician] - 3-5 Days Time of Disposition: 23:30 Print Language: BELIZEAN
[2021-05-13 01:00] VITALS: BP 126/80
--- NOTE | 2021-05-14 13:14 | Electrocardiograph Report ---
[facility] Test Date: 2021-05-13 Test Time: 00:01:06 Pat Name: GERARDO BORRERO Department: Room: Gender: F Certified [employer] Administrator: MARSHALL : 1965 Requested By: REMI LAL Order Number: [id number] Reading MD: Chris Pang Measurements Intervals [place] Rate: 55 P: 57 IA: 144 QRS: 39 QRSD: 72 T: 23 QT: 390 QTc: 374 Interpretive Statements Sinus bradycardia Low voltage, precordial leads No previous ECG available for comparison Electronically Signed On 05-14-2021 13:13:45 EDT by Chris Pang
== END 2021-05-13 00:40 | disposition home or self-care (01) ==
LOC: ED 15:22
DX: M54.12 Radiculopathy, cervical region (principal); R20.2 Paresthesia of skin; M19.91 Primary osteoarthritis, unspecified site; Z98.890 Other specified postprocedural states; Z79.899 Other long term (current) drug therapy
CPT/HCPCS: 36415; 71045; 80053; 84484; 85025; 93005

== ENCOUNTER 2021-08-31 10:06 | Outpatient (CLI) | payer OTHER ==
--- NOTE | 2021-08-31 15:17 | Vascular Lab Report ---
DUPLEX DOPPLER UPPER EXTREMITY VENOUS, RIGHT INDICATION / CLINICAL INFORMATION: hx of dvt. colon cancer. TECHNIQUE: Duplex doppler imaging was performed through the veins of the right upper extremity using venous compression and other maneuvers. COMPARISON: Right upper extremity venous Doppler 02/19/2019. FINDINGS: RIGHT INTERNAL JUGULAR VEIN: Nonocclusive chronic thrombus. RIGHT SUBCLAVIAN VEIN: Negative. RIGHT AXILLARY VEIN: Negative. RIGHT BRACHIAL VEIN: Negative. RIGHT FOREARM VEINS: Negative. RIGHT BASILIC VEIN (SUPERFICIAL): Negative. ADDITIONAL FINDINGS: None. IMPRESSION: 1. Nonocclusive chronic thrombus is again visualized within the right internal jugular vein. 2. No sonographic evidence of acute DVT within the right upper extremity. Scribed by: Lacey Potts RDMS, RVT Scribed: 08/31/2021 12:42 PM I have reviewed the images, agree with this report, and edited this report as needed. Signer Name: Fidencio Slaughter MD Signed: 08/31/2021 3:13 PM Workstation Name: [id number]
--- NOTE | 2021-08-31 18:26 | Mammography Report ---
DIGITAL SCREENING MAMMOGRAM WITH CAD, 08/31/2021 CLINICAL INFORMATION / INDICATION: Routine screening mammography. TECHNIQUE: Digital bilateral 2D mammography was obtained in the craniocaudal and mediolateral obliqu e projections. This examination was interpreted with the benefit of Computer-Aided Detection analysis . COMPARISON: 10/16/2018 FINDINGS: Breast Density: The breasts are heterogeneously dense, which may obscure small masses. No dominant mass, suspicious calcifications, or architectural distortion in either breast. Left-sided chemotherapy port is visible. Overall, no interval change. IMPRESSION: No mammographic evidence of malignancy. Follow up recommendation: Routine yearly BI-RADS Category 2: Benign. A "normal" or negative report should not discourage follow up or biopsy of a clinically significant f inding. A written summary of these findings will be mailed to the patient. The patient will be entered into a mammography reporting system which will generate a reminder letter for the patient's next appointmen t at the appropriate interval. The [employer] recommends yearly mammograms starting at age 40 and continuing as l kane as a woman is in good health. Breast MRI is recommended for women with an approximate 20-25% or greater lifetime risk of breast cancer, including women with a strong family history of breast or ova song cancer or who have been treated for Hodgkin's disease. Signer Name: Itzel Ruiz MD Signed: 08/31/2021 6:22 PM Workstation Name: [id number]
== END 2021-08-31 10:07 | disposition home or self-care (01) ==
LOC: VAS 10:06
PROVIDERS: ATTEND Internal Medicine Hematology & Oncology
DX: Z12.31 Encounter for screening mammogram for malignant neoplasm of breast (principal); C18.4 Malignant neoplasm of transverse colon; I82.C21 Chronic embolism and thrombosis of right internal jugular vein; H00.019 Hordeolum externum unspecified eye, unspecified eyelid; D68.69 Other thrombophilia
CPT/HCPCS: 77067